=== PATIENT | male | born 1945 | race Caucasian/White ===

== ENCOUNTER → 2016-12-03 | Outpatient (CLI) | payer MEDICARE | LOC: OD 13:23 | PROVIDERS: ATTEND Urology | DX: C61 Malignant neoplasm of prostate (principal) | CPT/HCPCS: 36415; 84153 ==

== ENCOUNTER → 2017-04-28 | Outpatient (CLI) | payer MEDICARE ==
[2017-04-28 09:11] LABS: ABSOLUTE EOSINOPHILS # (AUTO) 0.3 10^3/uL (0.0-0.6); ABSOLUTE LYMPHOCYTES (AUTO) 1.7 10^3/uL (0.5-4.7); ABSOLUTE MONOCYTES (AUTO) 0.8 10^3/uL (0.1-1.4); ABSOLUTE NEUT (AUTO) 5.3 10^3/uL (1.7-8.2); BASOPHILS % (AUTO) 0.6 % (0-2); EOSINOPHILS % (AUTO) 3.3 % (0-6); HEMATOCRIT 39.6 % (37.9-51.0); HEMOGLOBIN 13.6 g/dL (13.5-17.0); HGB HCT DIFFERENCE 1.2; LYMPHOCYTES % (AUTO) 20.9 % (13-45); MEAN CORPUSCULAR HEMOGLOBIN 33.2 pg (27.0-33.4); MEAN CORPUSCULAR HGB CONC 34.3 g/dL (32.0-36.0); MEAN CORPUSCULAR VOLUME 97 fl (80-97); RED BLOOD COUNT 4.09 10^6/uL (4.35-5.55); RED CELL DISTRIBUTION WIDTH 13.3 % (11.5-14.0); SEGMENTED NEUTROPHILS % (AUTO) 65.2 % (42-78); WHITE BLOOD COUNT 8.1 10^3/uL (4.0-10.5)
[2017-04-28 09:46] LABS: ALANINE AMINOTRANSFERASE 29 U/L (21-72); ALBUMIN 3.5 g/dL (3.5-5.0); ALKALINE PHOSPHATASE 103 U/L (38-126); ANION GAP 8 (5-19); ASPARTATE AMINO TRANSFERASE 13 U/L (17-59); BILIRUBIN,DIRECT 0.4 mg/dL (0.0-0.4); BILIRUBIN,TOTAL 0.7 mg/dL (0.2-1.3); BLOOD UREA NITROGEN 15 mg/dL (7-20); CALCIUM 9.7 mg/dL (8.4-10.2); CARBON DIOXIDE 28 mmol/L (22-30); CHLORIDE 105 mmol/L (98-107); CHOLESTEROL 191.25 mg/dL (0-200); Direct HDL 39 mg/dL (>40); GLUCOSE 184 mg/dL (75-110); POTASSIUM 4.8 mmol/L (3.6-5.0); SODIUM 141.4 mmol/L (137-145); TOTAL PROTEIN 6.5 g/dL (6.3-8.2); TRIGLYCERIDES 205 mg/dL (<150)
[2017-04-28 10:00] LABS: DIRECT LDL 125 mg/dL (<100)
[2017-04-28 10:10] LABS: ERYTHROCYTE SEDIMENTATION RATE 21 mm/hr (0-20)
[2017-04-28 10:15] LABS: PROSTATE SPECIFIC ANTIGEN < 0.064 ng/mL (<4.00)
== END ==
LOC: OD 08:11
PROVIDERS: ATTEND Internal Medicine
DX: E11.9 Type 2 diabetes mellitus without complications (principal); C61 Malignant neoplasm of prostate; I25.10 Atherosclerotic heart disease of native coronary artery without angina pectoris; J44.9 Chronic obstructive pulmonary disease, unspecified; E78.5 Hyperlipidemia, unspecified
CPT/HCPCS: 36415; 80053; 80061; 83036; 84153; 84443; 85025; 85652

== ENCOUNTER → 2017-04-30 | Outpatient (CLI) | payer MEDICARE ==
--- NOTE | 2017-04-30 14:49 | RADIOLOGY REPORT (SQ) ---
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 The route of agent administration: Intravenous. ADDITIONAL DRUGS AND DOSES: None. TECHNIQUE: Routine delayed images at 3 hour post radionuclide injection acquired of the bony skeleto n including anterior and posterior whole-body projections and additional focused images as needed. LIMITATIONS: None. FINDINGS: BONES: There is focal increased activity in the cervical region to the right of midline be st seen on the posterior images most consistent with degenerative changes. There is focal activity i n the mid maxillary region which may be related to dental disease. There is increased activity in th e knees bilaterally consistent with degenerative changes. No focal areas increased activity to sugge st metastatic disease is seen. KIDNEYS: Symmetric excretion without obstruction. OTHER: No other significant finding. IMPRESSION: No areas of increased skeletal activity to suggest metastatic disease. Other findings a s noted above COMMENT: PQRS 3570F: Current bone scan is compared with any available plain radiographs, prior bone scans, and CT/MRI. TECHNICAL DOCUMENTATION: JOB ID: [id number] [employer]- All Rights Reserved
== END ==
LOC: RAD 08:27
PROVIDERS: ATTEND Internal Medicine
DX: C61 Malignant neoplasm of prostate (principal)
CPT/HCPCS: 78306; A9561; Q9969

== ENCOUNTER → 2017-11-22 | Outpatient (CLI) | payer MEDICARE ==
[2017-11-22 09:02] LABS: ALANINE AMINOTRANSFERASE 28 U/L (21-72); ALBUMIN 3.7 g/dL (3.5-5.0); ALKALINE PHOSPHATASE 93 U/L (38-126); ANION GAP 8 (5-19); ASPARTATE AMINO TRANSFERASE 16 U/L (17-59); BILIRUBIN,DIRECT 0.5 mg/dL (0.0-0.4); BILIRUBIN,TOTAL 0.8 mg/dL (0.2-1.3); BLOOD UREA NITROGEN 15 mg/dL (7-20); CALCIUM 10.2 mg/dL (8.4-10.2); CARBON DIOXIDE 29 mmol/L (22-30); CHLORIDE 105 mmol/L (98-107); CHOLESTEROL 197.55 mg/dL (0-200); GLUCOSE 184 mg/dL (75-110); POTASSIUM 4.5 mmol/L (3.6-5.0); SODIUM 142.1 mmol/L (137-145); TOTAL PROTEIN 6.4 g/dL (6.3-8.2); TRIGLYCERIDES 236 mg/dL (<150)
[2017-11-22 09:13] LABS: DIRECT LDL 127 mg/dL (<100)
[2017-11-22 09:15] LABS: VLDL CHOLESTEROL 47.2 mg/dL (10-31)
== END ==
LOC: OD 07:49
PROVIDERS: ATTEND Internal Medicine
DX: E78.5 Hyperlipidemia, unspecified (principal); E11.9 Type 2 diabetes mellitus without complications; I10 Essential (primary) hypertension
CPT/HCPCS: 36415; 80053; 80061; 83036

== ENCOUNTER 2019-09-04 03:45 | Inpatient (IN) | payer MEDICARE ==
--- NOTE | 2019-09-04 05:15 | ER Document Report ---
ED General - General Chief Complaint: Fall Stated Complaint: LEG PAIN Time Seen by Provider: 09/04/19 05:01 Primary Care Provider: FIONA WHITE MD [Primary Care Provider] - Follow up as needed Notes: Patient is a 74-year-old male that comes emergency department with chief complaint of a fall that happened last night. At first patient states he thought it was 2 nights ago but on further inquiry thinks it was last night. He states that his right leg simply did not seem to be working and every time he tries to put weight on it it "landon" underneath him. He denies it buckling from pain, he states he feels weak. He also noticed that around the same time his right hand started feeling weak. He states that he kept having to get up to go the bathroom and he could not do so without assistance so he became frustrated and he called EMS. He states in transport his right hand was struck and caused a bruise and skin abrasion. He states he has a history of CAD with stents, hypertension, diabetes, however he states he took himself off of all of his meds and he does not see any primary care provider at this time. He denies smoking, alcohol, recreational drugs. He lives at home alone. His daughter is at bedside. TRAVEL OUTSIDE OF THE [place] IN LAST 30 DAYS: No - Related Data Allergies/Adverse Reactions: No Known Allergies Allergy (Unverified 07/09/11 15:01) Past Medical History - General Information source: Patient - Social History Smoking Status: Never Smoker Frequency of alcohol use: None Drug Abuse: None Lives with: Family Family History: Reviewed & Not Pertinent Patient has suicidal ideation: No Patient has homicidal ideation: No - Past Medical History Cardiac Medical History: Reports: Hx Coronary Artery Disease - STENTS X2 1999, Hx Hypercholesterolemia, Hx Hypertension - medicated Denies: Hx Heart Attack Pulmonary Medical History: Reports: Hx Bronchitis, Hx Pneumonia - WALKING PNEUMONIA Denies: Hx Asthma, Hx COPD Neurological Medical History: Denies: Hx Cerebrovascular Accident, Hx Seizures Endocrine Medical History: Reports: Hx Diabetes Mellitus Type 2 GI Medical History: Denies: Hx Hepatitis, Hx Hiatal Hernia, Hx Ulcer Musculoskeletal Medical History: Denies Hx Arthritis Infectious Medical History: Denies: Hx Hepatitis Past Surgical History: Reports: Hx Open Heart Surgery - STENTS PLACED 1999, Hx Orthopedic Surgery. Denies: Hx Pacemaker - Immunizations Immunizations up to date: No Hx Diphtheria, Pertussis, Tetanus Vaccination: Yes Review of Systems - Review of Systems Constitutional: See HPI EENT: No symptoms reported Cardiovascular: No symptoms reported Respiratory: No symptoms reported Gastrointestinal: No symptoms reported Genitourinary: No symptoms reported Male Genitourinary: No symptoms reported Musculoskeletal: See HPI Skin: No symptoms reported Hematologic/Lymphatic: No symptoms reported Neurological/Psychological: See HPI Physical Exam - Vital signs Vitals: Temp Pulse Resp BP Pulse Ox 99 F 92 14 150/97 H 98 09/04/19 03:53 09/04/19 03:53 09/04/19 03:53 09/04/19 03:53 09/04/19 03:53 - Notes Notes: GENERAL: Alert, interacts well. No acute distress. HEAD: Normocephalic, atraumatic. EYES: Pupils equal, round, and reactive to light. Extraocular movements intact. ENT: Oral mucosa dry, tongue midline. Oropharynx unremarkable. Airway patent. NECK: Full range of motion. Supple. Trachea midline. LUNGS: Clear to auscultation bilaterally, no wheezes, rales, or rhonchi. No respiratory distress. HEART: Regular rate and rhythm. No murmur ABDOMEN: Soft, non-tender. Non-distended. Bowel sounds present in all 4 quadrants. GENITOURINARY: Deferred EXTREMITIES: Moves all 4 extremities spontaneously. No edema, normal radial and dorsalis pedis pulses bilaterally. No cyanosis. BACK: no cervical, thoracic, lumbar midline tenderness. No saddle anesthesia, normal distal neurovascular exam. Moves all extremities in full range of motion. NEUROLOGICAL: Alert and oriented x3. Normal speech. Struggle slightly with right-sided finger-nose testing. Marked weakness in the right leg with patient barely able to lift it off of the bed against gravity. There is also some noted weakness and coordination difficulty with the right arm. Left side is normal. Cranial nerves II through XII intact. PSYCH: Normal affect, normal mood. SKIN: Warm, dry, normal turgor. Small skin abrasion of the right dorsal hand. No rashes or lesions noted. Course - Re-evaluation Re-evalutation: Patient's evaluation is actually concerning for a left MCA stroke. He has marked weakness of the right leg and also has weakness of the right arm. This is very specific. This is been for at least 12 hours, probably more based on patient's reported symptoms. Patient is well outside the window for TPA. Discussed with Dr. Mccann. EKG nonspecific, chemistry shows mild hyperglycemia without acidosis, chest x- ray unremarkable, CT of the head without acute finding. CBC nonspecific. Will discuss with hospitalist because of suspected acute CVA, in addition of this patient lives essentially alone and is unable to ambulate at this time. Discussed with patient and daughter. 09/04/19 07:50 Discussed with Willow Martinez NP, [facility] accepted to the [facility] full admission with Dr. Bales as the attending. - Vital Signs Vital signs: Temp Pulse Resp BP Pulse Ox 99 F 79 18 150/94 H 100 09/04/19 03:53 09/04/19 05:33 09/04/19 05:33 09/04/19 05:33 09/04/19 05:33 - Laboratory Result Diagrams: 09/04/19 05:20 09/04/19 05:20 Laboratory results interpreted by me: 09/04/19 09/04/19 09/04/19 03:51 05:20 05:20 RBC 4.22 L MCH 34.1 H Glucose 181 H POC Glucose 205 H AST 14 L - Diagnostic Test Radiology results interpreted by me: EKG shows sinus rhythm at a rate of 82, QTC 463, normal axis, no T wave inversions or ST segment changes in consecutive leads. Artifact present. Discharge - Discharge Clinical Impression: Right leg weakness, Right arm weakness, Non compliance w medication regimen Condition: Stable Disposition: ADMITTED INPATIENT Admitting Provider: Amairani (Hospitalist) Unit Admitted: [facility] Referrals: FIONA WHITE MD [Primary Care Provider] - Follow up as needed
[2019-09-04 05:32] LABS: ABSOLUTE BASOPHILS # (AUTO) 0.1 10^3/uL (0.0-0.2); ABSOLUTE EOSINOPHILS # (AUTO) 0.1 10^3/uL (0.0-0.6); ABSOLUTE LYMPHOCYTES (AUTO) 1.4 10^3/uL (0.5-4.7); ABSOLUTE NEUT (AUTO) 5.9 10^3/uL (1.7-8.2); BASOPHILS % (AUTO) 0.8 % (0-2); EOSINOPHILS % (AUTO) 0.8 % (0-6); HEMATOCRIT 40.4 % (37.9-51.0); HEMOGLOBIN 14.4 g/dL (13.5-17.0); INTERNATIONAL RATION (INR) 1.04; LYMPHOCYTES % (AUTO) 16.2 % (13-45); MEAN CORPUSCULAR HEMOGLOBIN 34.1 pg (27.0-33.4); MEAN CORPUSCULAR HGB CONC 35.6 g/dL (32.0-36.0); MEAN CORPUSCULAR VOLUME 96 fl (80-97); MONOCYTES % (AUTO) 12.1 % (3-13); PARTIAL THROMBOPLASTIN TIME 26.9 SEC (23.5-35.8); PLATELET COUNT 195 10^3/uL (150-450); PROTHROMBIN TIME 13.7 SEC (11.4-15.4); RED BLOOD COUNT 4.22 10^6/uL (4.35-5.55); RED CELL DISTRIBUTION WIDTH 12.6 % (11.5-14.0); SEGMENTED NEUTROPHILS % (AUTO) 70.1 % (42-78); TOTAL CELLS COUNTED % (AUTO) 100 %; WHITE BLOOD COUNT 8.4 10^3/uL (4.0-10.5)
--- NOTE | 2019-09-04 05:35 | ER Document Report ---
ED Alteplase Inc/Exc Criteria - Date/Time patient last known well: Date/Time: 09-04-2019, 05:30 - Inclusion Criteria: 1: Patient presented to ED within 3 hours of acute ischemic stroke symptom onset? -: No 2: Did baseline CT exclude intracranial hemorrhage and/or other risk factors? -: Yes 3: Is the age of the patient 18 years of age or greater? -: Yes : If any of the above questions are answered "NO" then stop, patient is not a candidate for Alteplase, : If all of the above questions are answered "YES" then continue with Exclusion Criteria. - Exclusion Criteria: 1: Is there evidence of intracranial hemorrhage on baseline CT? 2: Is there suspicion of subarachnoid hemorrhage (even if CT negative)? 3: Is there a history of serious head trauma, recent previous stroke or CA within 3 months? 4: Does the patient have a clinical presentation consistent with CA or post-CA pericarditis? 5: Is there history of intracranial hemorrhage? 6: On repeated measurement is Systolic BP greater than 185mmHg or Diastolic BP greater that 110 mmHg and is aggressive treatment needed to reduce blood pressure to these limits (e.g. constant infusion of an anti-hypertensive)? 7: Did the patient awake with stroke symptoms? 8: Has the patient had a lumbar puncture or an arterial puncture at a non- compressile site within 7 days? 9: With in the last 14 days did the patient have surgery or major trauma? 10: Is the patient or less than 2 weeks? 11: Was there any active bleeding or acute trauma? 12: Does the patient have intracranial neoplasm, arteriovenous malformation or aneurysm? 13: Does the patient have abnormal glucose (less than 50 or greater than 400mg/dl)? Record glucose in Comment. 14: Patient has rapidly improving symptoms at the time Alteplase is to be Administered. 15: Does the patient have any risks for bleeding, including but not limited to: a.: Current use of Coumadin with PT greater than 15 seconds or INR greater than 1.7. b.: Current use of Pradaxa (Dabigatran). c.: Heparin administereed within the past 48 hours and PTT elevated. d.: Platelet count less than 100,000/mm. e.: Major surgery or serious trauma within 14 days. f.: Gastrointestinal or gynecological urinary bleeding within 14 days. g.: Myocardial Infarction (CA) within 3 months. : If the answer to any of the above questions is "YES" then stop, the patient is not a candidate for Alteplase. : If the answer to all of the above questions is "NO" then the patient may be eligible for the Administration of Alteplase. : If the patient is noted to have seizure activity at onset of Stroke symptoms; Consult Neurologist for further evaluation. - The patient is: -: Included and is eligible to receive Alteplase. *Initiate bed placement at higher level of care* Reviewed risks & benefits of thrombolytic therapy: I have reviewed the risks and benefits of thrombolytic therapy with the patient and/or his/her family. -: Excluded and not eligible to receive Alteplase for the above exclusions. -: Excluded and not eligible to receive Alteplase for other reasons (specify in comments): - Diagnosis of TIA: -: Patient presented with transient symptoms that are now resolved and no other neurologic findings are currently present. List symptoms in comments. -: Patient is NOT a candidate for tPA. -: ____(put name in comment) has been consulted for admission and continued evaluation of risk factor assessment. Comment: Outside the window for TPA, did not proceed
--- NOTE | 2019-09-04 05:46 | RADIOLOGY REPORT (SQ) ---
CT head without contrast on 09/04/2019 at 5:25 AM CLINICAL INDICATION: Fall, stroke like symptoms TECHNIQUE: Multiple axial images are obtained throughout the head without the administration of contrast. This exam was performed according to our departmental dose-optimization program, which includes automated exposure control, adjustment of the mA and/or kV according to patient size and/or use of iterative reconstruction technique. Total DLP is 963.96 mGy*cm. COMPARISON: None FINDINGS: There is generalized cerebral atrophy. There is low density in the periventricular white matter consistent with chronic small vessel ischemic changes. There is no hydrocephalus. There is no hemorrhage. There are no abnormal extra-axial fluid collections. There is no mass, mass effect or midline shift. There is no CT evidence of acute infarct. No bony abnormality is noted. IMPRESSION: Atrophy and chronic small vessel ischemic changes with no acute intracranial abnormality.
[2019-09-04 05:48] LABS: ALBUMIN 3.8 g/dL (3.5-5.0); ALKALINE PHOSPHATASE 91 U/L (38-126); ANION GAP 10 (5-19); ASPARTATE AMINO TRANSFERASE 14 U/L (17-59); BILIRUBIN,DIRECT 0.2 mg/dL (0.0-0.4); BILIRUBIN,TOTAL 1.1 mg/dL (0.2-1.3); BLOOD UREA NITROGEN 18 mg/dL (7-20); CALCIUM 9.8 mg/dL (8.4-10.2); CARBON DIOXIDE 25 mmol/L (22-30); CHLORIDE 107 mmol/L (98-107); GLUCOSE 181 mg/dL (75-110); POTASSIUM 4.5 mmol/L (3.6-5.0); TOTAL PROTEIN 6.7 g/dL (6.3-8.2)
--- NOTE | 2019-09-04 05:59 | RADIOLOGY REPORT (SQ) ---
CLINICAL HISTORY: injury, pain COMPARISON: None. TECHNIQUE: XR HAND 3 OR MORE VIEWS 09/04/2019 5:12 AM [employer] REPRESENTATIVE FINDINGS: There is no fracture. There are diffuse degenerative changes of the IP joint. Soft tissues are unremarkable. Bones are osteopenic. IMPRESSION: No acute osseous findings.
--- NOTE | 2019-09-04 06:00 | RADIOLOGY REPORT (SQ) ---
CLINICAL HISTORY: stroke like symptoms COMPARISON: 05/25/2014. TECHNIQUE: XR CHEST 1 VIEW 09/04/2019 5:11 AM SPOUTER FINDINGS: Cardiac silhouette is normal in size. Lungs are clear without consolidation, atelectasis, mass or edema. There is no pleural effusion. There is no pneumothorax. There are no acute osseous findings. IMPRESSION: Clear lungs.
--- NOTE | 2019-09-04 06:42 | EKG REPORT ---
SEVERITY:- ABNORMAL ECG - DIFFUSE NONSPECIFIC ST-T CHANGES SINUS RHYTHM 82 EARLY TRANSITION , CONDISER OLD TRUE POST HI : Confirmed by: Chucky France MD 04-Sep-2019 06:41:29
[2019-09-04] MEDS ORDERED: MAGNESIUM HYDROXIDE SUSP 30 ML UDCUP PO PRN (08:31)
[2019-09-04] MEDS ORDERED: ONDANSETRON HCL INJ/PF 4 MG/2 ML SDV IV PRN (08:31)
[2019-09-04] MEDS ORDERED: TRAMADOL HCL 50 MG TABLET PO PRN (08:31)
[2019-09-04] MEDS ORDERED: ACETAMINOPHEN 325 MG TABLET PO PRN (08:31)
[2019-09-04] MEDS ORDERED: GLUCAGON,HUMAN RECOMB 1 MG INJ IM PRN (08:35)
[2019-09-04] MEDS ORDERED: DEXTROSE 40% GEL 15 GM TUBE PO PRN ×2 (08:35)
[2019-09-04] MEDS ORDERED: DEXTROSE 50%-WATER 25 GM/50 ML DISP.SYRIN IV PRN ×2 (08:35)
--- NOTE | 2019-09-04 11:49 | RADIOLOGY REPORT (SQ) ---
EXAM DESCRIPTION: MRI HEAD WITHOUT COMPLETED DATE/TIME: 09/04/2019 11:37 am REASON FOR STUDY: Right side weakness COMPARISON: CT brain 09/04/2019 TECHNIQUE: Multiplanar imaging includes non-contrasted T1, T2, FLAIR, and diffusion with ADC map seq uences. Images stored on PACS. LIMITATIONS: None. FINDINGS: ANATOMY: No developmental anomalies. Normal vascular flow voids. Pituitary fossa normal. CSF SPACES: Normal in size and contour. No hemorrhage. CEREBRUM: Diffusion-weighted images are positive for a small nonhemorrhagic acute infarct in the left thalamus, best shown on diffusion series 4, image 15/56. This report was called to Willow Martinez, hospitalist Remainder of the study demonstrates moderate small vessel ischemic change in the deep hemispheric bif rontal and biparietal regions, with multiple old lacunar infarcts in the basal ganglia. POSTERIOR FOSSA: No signal alteration. No hemorrhage. No edema, masses or mass effect. Internal deidre tory canals, cerebello-pontine angles, mastoids normal. DIFFUSION IMAGING: Negative for acute or sub-acute infarction. ORBITS: No masses. Globes post cataract surgery. PARANASAL SINUSES: No fluid levels. Mucosa normal. OTHER: No other significant finding. IMPRESSION: Positive study for acute nonhemorrhagic punctate lacunar infarct left thalamus. Chronic small vessel ischemic change elsewhere in the hemispheric white matter. EVIDENCE OF ACUTE STROKE: YES. TECHNICAL DOCUMENTATION: JOB ID: [id number] All Rights Reserved Reading location - IP/workstation name: [email or web address]
[2019-09-04] MEDS: INSULIN LISPRO 100 UNIT/ML 3 ML VIAL SUBCUT SCH ×3 (12:34→22:33)
[2019-09-04] MEDS: HEPARIN SOD (PORCINE) 5,000 UNIT/ML 1 ML VIAL SUBCUT SCH ×2 (13:14→22:33)
[2019-09-04] MEDS: ASPIRIN 81 MG TABLET, ENT COATED PO SCH (13:19)
[2019-09-04] MEDS: FAMOTIDINE 20 MG TABLET PO SCH ×2 (13:19→22:33)
[2019-09-04] MEDS: CLOPIDOGREL BISULFATE 75 MG TABLET PO SCH (13:19)
[2019-09-04] MEDS: DOCUSATE SODIUM 100 MG CAPSULE PO SCH (13:19)
[2019-09-04] MEDS ORDERED: HYDRALAZINE HCL INJ/PF 20 MG/1 ML SDV IV PRN (19:03)
[2019-09-04] MEDS ORDERED: NICOTINE 21 MG/24 HR PATCH.TD24 TD PRN (19:12)
--- NOTE | 2019-09-04 19:17 | PDOC H&P ---
History of Present Illness Admission Date/PCP: 09/04/19 16:25 FIONA WHITE MD Patient complains of: right side weakness History of Present Illness: JANNET HENAO is a 74 year old male Past Medical History Cardiac Medical History: Reports: Coronary Artery Disease - STENTS X2 2000, Hyperlipidema, Hypertension Denies: Myocardial Infarction Pulmonary Medical History: Reports: Bronchitis, Pneumonia Denies: Asthma, Chronic Obstructive Pulmonary Disease (COPD) Neurological Medical History: Denies: Ischemic CVA, Seizures Endocrine Medical History: Reports: Diabetes Mellitus Type 2 GI Medical History: Denies: Hepatitis, Hiatal Hernia Musculoskeltal Medical History: Denies: Arthritis Psychiatric Medical History: Reports: Tobacco Dependency Denies: Depression Hematology: Denies: Anemia, Sickle Cell Disease Past Surgical History Past Surgical History: Reports: Orthopedic Surgery Denies: Pacemaker Social History Information Source: Patient Lives with: Alone Smoking Status: Current Every Day Smoker Cigarettes Packs Per Day: 0.5 Electronic Cigarette use?: No Number of Years Smokin Frequency of Alcohol Use: None Hx Recreational Drug Use: No Drugs: None Hx Prescription Drug Abuse: No - Advance Directive Resuscitation Status: Full Code Surrogate healthcare decision maker:: The patient's daughter, Latasha Vega, Family History Family History: Reviewed & Not Pertinent Parental Family History Reviewed: Yes Children Family History Reviewed: Yes Sibling(s) Family History Reviewed.: Yes Medication/Allergy Home Medications: No Home Medications 09/04/19 Allergies/Adverse Reactions: No Known Allergies Allergy (Unverified 07/09/11 15:01) Review of Systems Constitutional: ABSENT: chills, fever(s), headache(s), weight gain, weight loss Eyes: ABSENT: visual disturbances Ears: ABSENT: hearing changes Cardiovascular: ABSENT: chest pain, dyspnea on exertion, edema, orthropnea, palpitations Respiratory: ABSENT: cough, hemoptysis Gastrointestinal: ABSENT: abdominal pain, constipation, diarrhea, hematemesis, hematochezia, nausea, vomiting Genitourinary: ABSENT: dysuria, hematuria Musculoskeletal: ABSENT: joint swelling Integumentary: ABSENT: rash, wounds Neurological: PRESENT: focal weakness - Rt upper/lower extremities, frequent falls, numbness - right facial, weakness. ABSENT: abnormal gait, abnormal speech, confusion, dizziness, syncope Psychiatric: ABSENT: anxiety, depression, homidical ideation, suicidal ideation Endocrine: ABSENT: cold intolerance, heat intolerance, polydipsia, polyuria Hematologic/Lymphatic: ABSENT: easy bleeding, easy bruising Physical Exam Vital Signs: Temp Pulse Resp BP Pulse Ox 99.1 F 93 17 111/59 L 100 09/04/19 16:02 09/04/19 16:02 09/04/19 16:02 09/04/19 16:02 09/04/19 16:02 Intake & Output 09/03/19 09/04/19 09/05/19 06:59 06:59 06:59 Intake Total 200 Balance 200 Weight 84.8 kg 84.1 kg General appearance: PRESENT: no acute distress, cooperative, disheveled, well- developed, well-nourished Head exam: PRESENT: atraumatic, normocephalic Eye exam: PRESENT: conjunctiva pink, EOMI, PERRLA. ABSENT: scleral icterus Ear exam: PRESENT: normal external ear exam Mouth exam: PRESENT: moist, tongue midline Teeth exam: PRESENT: poor dentation Neck exam: ABSENT: carotid bruit, JVD, lymphadenopathy, thyromegaly Respiratory exam: PRESENT: clear to auscultation chivo, symmetrical, unlabored. ABSENT: rales, rhonchi, wheezes Cardiovascular exam: PRESENT: RRR, +S1, +S2. ABSENT: diastolic murmur, rubs, systolic murmur Pulses: PRESENT: normal dorsalis pedis pul Vascular exam: PRESENT: normal capillary refill GI/Abdominal exam: PRESENT: normal bowel sounds, soft. ABSENT: distended, guarding, mass, organolmegaly, rebound, tenderness Rectal exam: PRESENT: deferred Extremities exam: PRESENT: full ROM. ABSENT: calf tenderness, clubbing, pedal edema Neurological exam: PRESENT: alert, awake, oriented to person, oriented to place, oriented to time, oriented to situation, CN II-XII grossly intact, other - Rt facial numbness; right bottle feeder 4/5, left 5/5, right dorsi/plantarflexion 3/5, left 5/5. Right leg lift 2/5, left leg lift 4/5. ABSENT: motor sensory deficit Psychiatric exam: PRESENT: appropriate affect, normal mood. ABSENT: homicidal ideation, suicidal ideation Skin exam: PRESENT: dry, intact, warm. ABSENT: cyanosis, rash Results Laboratory Results: 09/04/19 05:20 09/04/19 05:20 09/04/19 09/04/19 05:20 05:20 WBC 8.4 RBC 4.22 L Hgb 14.4 Hct 40.4 MCV 96 MCH 34.1 H MCHC 35.6 RDW 12.6 Plt Count 195 Seg Neutrophils % 70.1 Sodium 141.9 Potassium 4.5 Chloride 107 Carbon Dioxide 25 Anion Gap 10 BUN 18 Creatinine 0.80 Est GFR ( Amer) > 60 Glucose 181 H Calcium 9.8 Total Bilirubin 1.1 AST 14 L Alkaline Phosphatase 91 Total Protein 6.7 Albumin 3.8 09/04/19 05:20 Troponin I < 0.012 Impressions: Head MRI 09/04/19 00:00 IMPRESSION: Positive study for acute nonhemorrhagic punctate lacunar infarct le ft thalamus. Chronic small vessel ischemic change elsewhere in the hemispheric white matter. EVIDENCE OF ACUTE STROKE: YES. Chest X-Ray 09/04/19 05:11 IMPRESSION: Clear lungs. Head CT 09/04/19 05:11 IMPRESSION: Atrophy and chronic small vessel ischemic changes with no acute intracranial abnormality. Hand X-Ray 09/04/19 05:12 IMPRESSION: No acute osseous findings. Assessment and Plan - Diagnosis (1) CVA (cerebral vascular accident) Qualifiers: Laterality of affected vessel: right Is this a current diagnosis for this admission?: Yes Plan: Right-sided weakness and facial numbness noted on waking this morning. Patient reports increased frequency of falls today; 4 falls this morning. Typically falls 1-2 times a week. Last known well greater than [address] benign. Head MRI shows acute nonhemorrhagic punctate lacunar infarct of the left thal amus with chronic small vessel ischemic changes. EKG shows normal sinus Patient has been admitted to [facility] on continuous cardiac telemetry. We will obtain carotid Dopplers. Consider echocardiogram if patient is noted to have any arrhythmias. He has not been on aspirin therapy recently; stopped all home medication several years ago. Start aspirin. Start Plavix x21 days for stroke reduction risk. Start high-dose statin. Lipid panel and A1c with a.m. lab work. PT/OT/ST consulted. Discharge planning consulted. (2) Diabetes Qualifiers: Diabetes mellitus type: type 2 Diabetes mellitus complication status: with hyperglycemia Is this a current diagnosis for this admission?: Yes Plan: Patient has been off of his home medications for several years. We will check A1c with a.m. lab work. He is placed on a consistent carb/cardiac diet. Accu-Cheks before meals and at bedtime with Humalog for sliding scale coverage. Hyperglycemia protocol placed. (3) Tobacco dependence Is this a current diagnosis for this admission?: Yes Plan: Smoking cessation encouraged. Nicotine or placement therapies provided. (4) Non compliance w medication regimen Is this a current diagnosis for this admission?: Yes Plan: Education and reinforcement of lifestyle and dietary modifications, and medication compliance. Discharge planning is consulted; patient will benefit from home health nursing for disease and medication education and management. - Time Time Spent with patient: 25-34 minutes Medications reviewed and adjusted accordingly: Yes Anticipated discharge: Home with Homehealth Within: within 48 hours - Inpatient Certification Based on my medical assessment, after consideration of the patient's comorbi dities, presenting symptoms, or acuity I expect that the services needed warrant INPATIENT care.: Yes I certify that my determination is in accordance with my understanding of Medicare's requirements for reasonable and necessary INPATIENT services [42 CFR 412.3e].: Yes Medical Necessity: Need Close Monitoring Due to Risk of Patient Decompensation, Need For Continuous Telemetry Monitoring, Risk of Diagnosis Which Will Require Inpatient Eval/Care/Monitoring
[2019-09-04] MEDS: ATORVASTATIN CALCIUM 80 MG TABLET PO SCH (22:33)
[2019-09-05 05:16] LABS: BLOOD UREA NITROGEN 17 mg/dL (7-20); CALCIUM 9.3 mg/dL (8.4-10.2); GLUCOSE 122 mg/dL (75-110)
[2019-09-05 05:17] LABS: ANION GAP 7 (5-19); CARBON DIOXIDE 27 mmol/L (22-30); CHLORIDE 105 mmol/L (98-107); CHOLESTEROL 183.37 mg/dL (0-200); POTASSIUM 4.1 mmol/L (3.6-5.0); TRIGLYCERIDES 173 mg/dL (<150)
[2019-09-05 05:27] LABS: DIRECT LDL 131 mg/dL (<100)
[2019-09-05 05:30] LABS: VLDL CHOLESTEROL 34.6 mg/dL (10-31)
[2019-09-05] MEDS: HEPARIN SOD (PORCINE) 5,000 UNIT/ML 1 ML VIAL SUBCUT SCH ×3 (05:50→22:23)
[2019-09-05] MEDS: INSULIN LISPRO 100 UNIT/ML 3 ML VIAL SUBCUT SCH ×4 (07:27→22:44)
[2019-09-05] MEDS: CLOPIDOGREL BISULFATE 75 MG TABLET PO SCH (09:18)
[2019-09-05] MEDS: ASPIRIN 81 MG TABLET, ENT COATED PO SCH (09:18)
[2019-09-05] MEDS: DOCUSATE SODIUM 100 MG CAPSULE PO SCH (09:19)
[2019-09-05] MEDS: FAMOTIDINE 20 MG TABLET PO SCH ×2 (09:19→22:23)
--- NOTE | 2019-09-05 09:28 | RADIOLOGY REPORT (SQ) ---
EXAM DESCRIPTION: CAROTID DOPPLER COMPLETED DATE/TIME: 09/04/2019 6:58 pm REASON FOR STUDY: CVA COMPARISON: 09/04/2019 TECHNIQUE: Grayscale ultrasound, Doppler velocity and spectra, and color Doppler images acquired of the extra-cranial carotid and vertebral arteries. Images stored on PACS. LIMITATIONS: None. FINDINGS: RIGHT CAROTID CCA Velocities: Normal waveform. . Grayscale evaluation demonstrates eccentric distal plaque with l ess than 50% luminal stenosis. ICA Velocities Peak systolic 203 cm/s. End diastolic 42 cm/s. Proximal ICA/CCA peak systolic ratio 2.8. Elevated turbulent velocities at the proximal ICA. There is eccentric hyperechoic shadowing calcifie d plaque and hypoechoic plaque at the proximal ICA on grayscale evaluation with at least 50% luminal narrowing. Elevated velocity within the right ECA of 196 cm/s. LEFT CAROTID CCA Velocities: Normal waveform. Grayscale evaluation with scatter mild eccentric distal plaque with less than 50% luminal stenosis. ICA Velocities Peak systolic 69 cm/s. End diastolic 19 cm/s. Proximal ICA/CCA peak systolic ratio 0.8. Normal spectral waveform. Scattered eccentric plaque with less than 50% luminal stenosis by grayscal e evaluation. VERTEBRAL ARTERIES: Antegrade flow. Normal waveforms. SUBCLAVIAN ARTERIES: Not imaged. OTHER: No other significant finding. IMPRESSION: 1. Right ICA with elevated velocities compatible with 50 - 69% stenosis. 2. No hemodynamically significant stenosis within the left ICA. COMMENT: Quality ID #[id number]: Velocity criteria are extrapolated from the diameter data as defined by t he Society of Radiologists in Ultrasound Consensus Conference. Radiology 2003: 229; 340-346. TECHNICAL DOCUMENTATION: JOB ID: [id number] All Rights Reserved Reading location - IP/workstation name: [facility]-
--- NOTE | 2019-09-05 18:24 | PDOC PROGRESS REPORT ---
Subjective Progress Note for:: 09/05/19 Subjective:: The patient is a 74-year-old male with a past medical history of hypertension, diabetes mellitus, hyperlipidemia, and tobacco dependence. He reports that he discontinued taking his home medications several years ago but has not seen a healthcare provider since. He was admitted 09/04/2019 for right-sided weakness suspicious for CVA. Patient was seen on afternoon rounds with his daughters present. He was found resting in bed comfortably on room air. He is alert and oriented to person, place, situation; though forgetful and repetitive of statements and questions. He does continue to have slight right-sided weakness, however, this is significantly improved from yesterday. He has not yet worked with physical therapy today. He denies fever, chills, headache, dizziness, blurred vision, chest pain, palpitations, dyspnea, orthopnea, abdominal pain, nausea vomiting and diarrhea. Have no new questions or concerns. No questions per nursing at this time. Reason For Visit: CVA Physical Exam Vital Signs: Temp Pulse Resp BP Pulse Ox 98.2 F 78 16 93/50 L 98 09/05/19 15:15 09/05/19 16:00 09/05/19 16:00 09/05/19 16:00 09/05/19 16:00 Intake & Output 09/04/19 09/05/19 09/06/19 06:59 06:59 06:59 Intake Total 350 340 Balance 350 340 Weight 84.8 kg 82.9 kg General appearance: PRESENT: no acute distress, cooperative, well-developed, well-nourished Head exam: PRESENT: atraumatic, normocephalic Eye exam: PRESENT: conjunctiva pink, EOMI, PERRLA. ABSENT: scleral icterus Ear exam: PRESENT: normal external ear exam Mouth exam: PRESENT: moist, tongue midline Respiratory exam: PRESENT: clear to auscultation chivo, symmetrical, unlabored. ABSENT: rales, rhonchi, wheezes Cardiovascular exam: PRESENT: RRR, +S1, +S2. ABSENT: diastolic murmur, rubs, systolic murmur Pulses: PRESENT: normal dorsalis pedis pul Vascular exam: PRESENT: normal capillary refill GI/Abdominal exam: PRESENT: normal bowel sounds, soft. ABSENT: distended, guarding, mass, organolmegaly, rebound, tenderness Rectal exam: PRESENT: deferred Extremities exam: PRESENT: full ROM, other - Rt facial numbness; right regional loss prevention manager 5/5, left 5/5, right dorsi/plantarflexion 5/5, left 5/5. Right leg lift 3/5, left leg lift 4/5.. ABSENT: calf tenderness, clubbing, pedal edema Neurological exam: PRESENT: alert, awake, oriented to person, oriented to place, oriented to situation, CN II-XII grossly intact, other - Forgetful and repetitive. ABSENT: motor sensory deficit Psychiatric exam: PRESENT: appropriate affect, normal mood. ABSENT: homicidal ideation, suicidal ideation Skin exam: PRESENT: dry, intact, warm. ABSENT: cyanosis, rash Results Laboratory Results: 09/04/19 05:20 09/05/19 04:33 09/05/19 04:33 Sodium 139.2 Potassium 4.1 Chloride 105 Carbon Dioxide 27 Anion Gap 7 BUN 17 Creatinine 0.81 Est GFR ( Amer) > 60 Glucose 122 H Calcium 9.3 Triglycerides 173 H Cholesterol 183.37 LDL Cholesterol Direct 131 H VLDL Cholesterol 34.6 H HDL Cholesterol 32 L 09/04/19 05:20 Troponin I < 0.012 Impressions: Head MRI 09/04/19 00:00 IMPRESSION: Positive study for acute nonhemorrhagic punctate lacunar infarct left thalamus. Chronic small vessel ischemic change elsewhere in the hemispheric white matter. EVIDENCE OF ACUTE STROKE: YES. Chest X-Ray 09/04/19 05:11 IMPRESSION: Clear lungs. Head CT 09/04/19 05:11 IMPRESSION: Atrophy and chronic small vessel ischemic changes with no acute intracranial abnormality. Hand X-Ray 09/04/19 05:12 IMPRESSION: No acute osseous findings. Carotid Doppler Study 09/04/19 08:34 IMPRESSION: 1. Right ICA with elevated velocities compatible with 50 - 69% stenosis. 2. No hemodynamically significant stenosis within the left ICA. Assessment and Plan - Diagnosis (1) CVA (cerebral vascular accident) Qualifiers: Laterality of affected vessel: right Is this a current diagnosis for this admission?: Yes Plan: Right-sided weakness and facial numbness noted on waking this morning. Patient reports increased frequency of falls today; 4 falls this morning. Typically falls 1-2 times a week. Last known well greater than [address] benign. Head MRI shows acute nonhemorrhagic punctate lacunar infarct of the left thalamus with chronic small vessel ischemic changes. EKG shows normal sinus Carotid Doppler is negative for hemodynamically significant stenosis; does show a less than 69% stenosis of the right ICA A1c of 7.9% Lipid panel shows HDL 32, LDL 131, triglycerides 173, total cholesterol 183 Patient has been admitted to [facility] on continuous cardiac telemetry. Consider echocardiogram if patient is noted to have any arrhythmias. He has not been on aspirin therapy recently; stopped all home medication several years ago. Continue aspirin. Continue Plavix x21 days for stroke reduction risk. Continue high-dose statin. PT/OT/ST consulted. Discharge planning consulted. (2) Diabetes Qualifiers: Diabetes mellitus type: type 2 Diabetes mellitus complication status: with hyperglycemia Is this a current diagnosis for this admission?: Yes Plan: A1c of 7.9% Patient has been off of his home medications for several years. He is placed on a consistent carb/cardiac diet. Accu-Cheks before meals and at bedtime with Humalog for sliding scale coverage. Hyperglycemia protocol placed. Appropriate to be discharged on twice daily metformin. (3) Tobacco dependence Is this a current diagnosis for this admission?: Yes Plan: Smoking cessation encouraged. Nicotine or placement therapies provided. (4) Non compliance w medication regimen Is this a current diagnosis for this admission?: Yes Plan: Education and reinforcement of lifestyle and dietary modifications, and medication compliance. Discharge planning is consulted; patient will benefit from home health nursing for disease and medication education and management. (5) Hyperlipidemia Is this a current diagnosis for this admission?: Yes Plan: HDL 32, LDL 131, triglycerides 173, cholesterol 183 Consistent carb/cardiac diet. Currently on high-dose statin; should continue statin therapy daily on discharge. - Time Time Spent with patient: 25-34 minutes Medications reviewed and adjusted accordingly: Yes Anticipated discharge: SNF Within: when bed available
[2019-09-05] MEDS: ATORVASTATIN CALCIUM 80 MG TABLET PO SCH (22:23)
[2019-09-06] MEDS: HEPARIN SOD (PORCINE) 5,000 UNIT/ML 1 ML VIAL SUBCUT SCH ×3 (06:01→23:22)
--- NOTE | 2019-09-06 10:19 | PDOC PROGRESS REPORT ---
Subjective Progress Note for:: 09/06/19 Subjective:: The patient is a 74-year-old male with a past medical history of hypertension, diabetes mellitus, hyperlipidemia, and tobacco dependence. He reports that he discontinued taking his home medications several years ago but has not seen a healthcare provider since. He was admitted 09/04/2019 for right-sided weakness suspicious for CVA. 09/06/2019. No acute events overnight. Patient is complaining of right lower extremity weakness, stating that he would like to be placed in a short-term rehab as he thinks he may not be able to take care of himself at home. Denies any new neurological symptoms, denies any fever, chills, nausea, vomiting, diarrhea, constipation or any urinary symptoms. Patient is pending transfer to SNF. Reason For Visit: CVA Physical Exam Vital Signs: Temp Pulse Resp BP Pulse Ox 98.6 F 83 18 124/70 99 09/06/19 03:04 09/06/19 07:00 09/06/19 03:04 09/06/19 03:04 09/06/19 03:04 Intake & Output 09/05/19 09/06/19 09/07/19 06:59 06:59 06:59 Intake Total 350 490 Balance 350 490 Weight 82.9 kg 82.7 kg General appearance: PRESENT: no acute distress, well-developed, well-nourished Respiratory exam: PRESENT: clear to auscultation chivo. ABSENT: rales, rhonchi, wheezes Cardiovascular exam: PRESENT: RRR. ABSENT: diastolic murmur, rubs, systolic murmur Neurological exam: PRESENT: alert, awake, oriented to person, oriented to place, oriented to time, oriented to situation, CN II-XII grossly intact, motor sensory deficit - Right lower extremity strength 2/5. Results Laboratory Results: 09/04/19 05:20 09/05/19 04:33 09/04/19 05:20 Troponin I < 0.012 Impressions: Head MRI 09/04/19 00:00 IMPRESSION: Positive study for acute nonhemorrhagic punctate lacunar infarct left thalamus. Chronic small vessel ischemic change elsewhere in the hemispheric white matter. EVIDENCE OF ACUTE STROKE: YES. Chest X-Ray 09/04/19 05:11 IMPRESSION: Clear lungs. Head CT 11/25/19 05:11 IMPRESSION: Atrophy and chronic small vessel ischemic changes with no acute intracranial abnormality. Hand X-Ray 09/04/19 05:12 IMPRESSION: No acute osseous findings. Carotid Doppler Study 09/04/19 08:34 IMPRESSION: 1. Right ICA with elevated velocities compatible with 50 - 69% stenosis. 2. No hemodynamically significant stenosis within the left ICA. Assessment and Plan - Diagnosis (1) CVA (cerebral vascular accident) Qualifiers: Laterality of affected vessel: right Is this a current diagnosis for this admission?: Yes Plan: Right upper and lower extremity worse on the right side. Still not able to ambulate without assistance. Denies any new focal neurological symptoms. Last known well greater than 12 hours ago prior to admission. Head CT benign. Head MRI shows acute nonhemorrhagic punctate lacunar infarct of the left thalamus with chronic small vessel ischemic changes. EKG shows normal sinus Carotid Doppler is negative for hemodynamically significant stenosis; does show a less than 69% stenosis of the right ICA A1c of 7.9% Lipid panel shows HDL 32, LDL 131, triglycerides 173, total cholesterol 183 Will consider echocardiogram if patient is noted to have any arrhythmias. He has not been on aspirin therapy recently; stopped all home medication several years ago. Continue aspirin. Continue Plavix x21 days for stroke reduction risk. Continue high intensity statin. Continue PT/OT/ST. Pending transfer to SNF. (2) Diabetes Qualifiers: Diabetes mellitus type: type 2 Diabetes mellitus complication status: with hyperglycemia Is this a current diagnosis for this admission?: Yes Plan: A1c of 7.9% Patient has been off of his home medications for several years. He is placed on a consistent carb/cardiac diet. Accu-Cheks before meals and at bedtime with Humalog for sliding scale coverage. Hyperglycemia protocol placed. Appropriate to be discharged on twice daily metformin. (3) Hyperlipidemia Is this a current diagnosis for this admission?: Yes Plan: HDL 32, LDL 131, triglycerides 173, cholesterol 183 Consistent carb/cardiac diet. Continue high intensity statin. Follow-up with PCP for evaluation of liver chemistries. (4) Non compliance w medication regimen Is this a current diagnosis for this admission?: Yes Plan: Education and reinforcement of lifestyle and dietary modifications, and m edication compliance. Discharge planning is consulted; patient will benefit from home health nursing for disease and medication education and management. (5) Tobacco dependence Is this a current diagnosis for this admission?: Yes Plan: Smoking cessation encouraged. Nicotine or placement therapies provided.
[2019-09-06] MEDS: INSULIN LISPRO 100 UNIT/ML 3 ML VIAL SUBCUT SCH ×4 (10:28→23:00)
[2019-09-06] MEDS: ASPIRIN 81 MG TABLET, ENT COATED PO SCH (10:29)
[2019-09-06] MEDS: CLOPIDOGREL BISULFATE 75 MG TABLET PO SCH (10:29)
[2019-09-06] MEDS: DOCUSATE SODIUM 100 MG CAPSULE PO SCH (10:34)
[2019-09-06] MEDS: FAMOTIDINE 20 MG TABLET PO SCH ×2 (10:34→23:21)
[2019-09-06] MEDS: ATORVASTATIN CALCIUM 80 MG TABLET PO SCH (23:21)
[2019-09-07] MEDS: HEPARIN SOD (PORCINE) 5,000 UNIT/ML 1 ML VIAL SUBCUT SCH ×3 (06:08→22:34)
[2019-09-07] MEDS: INSULIN LISPRO 100 UNIT/ML 3 ML VIAL SUBCUT SCH ×3 (10:31→22:35)
[2019-09-07] MEDS: FAMOTIDINE 20 MG TABLET PO SCH ×2 (10:33→22:32)
[2019-09-07] MEDS: CLOPIDOGREL BISULFATE 75 MG TABLET PO SCH (10:33)
[2019-09-07] MEDS: DOCUSATE SODIUM 100 MG CAPSULE PO SCH (10:33)
[2019-09-07] MEDS: ASPIRIN 81 MG TABLET, ENT COATED PO SCH (10:33)
--- NOTE | 2019-09-07 11:53 | PDOC PROGRESS REPORT ---
Subjective Progress Note for:: 09/07/19 Subjective:: The patient is a 74-year-old male with a past medical history of hypertension, diabetes mellitus, hyperlipidemia, and tobacco dependence. He reports that he discontinued taking his home medications several years ago but has not seen a healthcare provider since. He was admitted 09/04/2019 for right-sided weakness suspicious for CVA. 09/06/2019. No acute events overnight. Patient is complaining of right lower extremity weakness, stating that he would like to be placed in a short-term rehab as he thinks he may not be able to take care of himself at home. Denies any new neurological symptoms, denies any fever, chills, nausea, vomiting, diarrhea, constipation or any urinary symptoms. Patient is pending transfer to SNF. 09/07/2019. No acute events overnight. Right lower extremity strength improving mildly, denies any fever, chills, nausea, vomiting, diarrhea, constipation or any urinary symptoms. Patient is pending placement. Reason For Visit: CVA Physical Exam Vital Signs: Temp Pulse Resp BP Pulse Ox 98.0 F 88 18 123/75 99 09/07/19 07:28 09/07/19 07:28 09/07/19 07:28 09/07/19 07:28 09/07/19 07:28 Intake & Output 09/06/19 09/07/19 09/08/19 06:59 06:59 06:59 Intake Total 490 800 Output Total 850 Balance 490 -50 Weight 82.7 kg 81.5 kg General appearance: PRESENT: no acute distress, well-developed, well-nourished Respiratory exam: PRESENT: clear to auscultation chivo. ABSENT: rales, rhonchi, wheezes Cardiovascular exam: PRESENT: RRR. ABSENT: diastolic murmur, rubs, systolic murmur GI/Abdominal exam: PRESENT: normal bowel sounds, soft. ABSENT: distended, guarding, mass, organolmegaly, rebound, tenderness Neurological exam: PRESENT: alert, awake, oriented to person, oriented to place, oriented to time, oriented to situation, CN II-XII grossly intact, motor sensory deficit - RLE strength 2/5 Results Laboratory Results: 09/04/19 05:20 09/05/19 04:33 09/04/19 05:20 Troponin I < 0.012 Impressions: Head MRI 09/04/19 00:00 IMPRESSION: Positive study for acute nonhemorrhagic punctate lacunar infarct left thalamus. Chronic small vessel ischemic change elsewhere in the hemispheric white matter. EVIDENCE OF ACUTE STROKE: YES. Chest X-Ray 09/04/19 05:11 IMPRESSION: Clear lungs. Head CT 09/04/19 05:11 IMPRESSION: Atrophy and chronic small vessel ischemic changes with no acute intracranial abnormality. Hand X-Ray 09/04/19 05:12 IMPRESSION: No acute osseous findings. Carotid Doppler Study 09/04/19 08:34 IMPRESSION: 1. Right ICA with elevated velocities compatible with 50 - 69% stenosis. 2. No hemodynamically significant stenosis within the left ICA. Assessment and Plan - Diagnosis (1) CVA (cerebral vascular accident) Qualifiers: Laterality of affected vessel: right Is this a current diagnosis for this admission?: Yes Plan: Right upper and lower extremity worse on the right side. Still not able to ambulate without assistance. Denies any new focal neurological symptoms. Last known well greater than 12 hours ago prior to admission. Head CT benign. Head MRI shows acute nonhemorrhagic punctate lacunar infarct of the left thalamus with chronic small vessel ischemic changes. EKG shows normal sinus Carotid Doppler is negative for hemodynamically significant stenosis; does show a less than 69% stenosis of the right ICA A1c of 7.9% Lipid panel shows HDL 32, LDL 131, triglycerides 173, total cholesterol 183 Will consider echocardiogram if patient is noted to have any arrhythmias. He has not been on aspirin therapy recently; stopped all home medication several years ago. Continue aspirin. Continue Plavix x21 days for stroke reduction risk. Continue high intensity statin. Continue PT/OT/ST. Pending transfer to SNF. (2) Diabetes Qualifiers: Diabetes mellitus type: type 2 Diabetes mellitus complication status: with hyperglycemia Is this a current diagnosis for this admission?: Yes Plan: A1c of 7.9% Patient has been off of his home medications for several years. He is placed on a consistent carb/cardiac diet. Accu-Cheks before meals and at bedtime with Humalog for sliding scale coverage. Hyperglycemia protocol placed. Appropriate to be discharged on twice daily metformin. (3) Hyperlipidemia Is this a current diagnosis for this admission?: Yes Plan: HDL 32, LDL 131, triglycerides 173, cholesterol 183 Consistent carb/cardiac diet. Continue high intensity statin. Follow-up with PCP for evaluation of liver chemistries. (4) Non compliance w medication regimen Is this a current diagnosis for this admission?: Yes Plan: Education and reinforcement of lifestyle and dietary modifications, and medication compliance. Discharge planning is consulted; patient will benefit from home health nursing for disease and medication education and management. (5) Tobacco dependence Is this a current diagnosis for this admission?: Yes Plan: Smoking cessation encouraged. Nicotine or placement therapies provided.
[2019-09-07] MEDS ORDERED: DEXTROSE 40% GEL 15 GM TUBE PO PRN ×2 (11:55)
[2019-09-07] MEDS ORDERED: DEXTROSE 50%-WATER 25 GM/50 ML DISP.SYRIN IV PRN ×2 (11:55)
[2019-09-07] MEDS ORDERED: GLUCAGON,HUMAN RECOMB 1 MG INJ IM PRN (11:55)
[2019-09-07] MEDS: ATORVASTATIN CALCIUM 80 MG TABLET PO SCH (22:32)
[2019-09-08] MEDS: HEPARIN SOD (PORCINE) 5,000 UNIT/ML 1 ML VIAL SUBCUT SCH ×3 (05:58→22:51)
[2019-09-08] MEDS ORDERED: POLYETHYLENE GLYCOL 3350 POWDER 17 GM/1 PACKET PO ONE (10:05)
--- NOTE | 2019-09-08 10:07 | PDOC PROGRESS REPORT ---
Subjective Progress Note for:: 09/08/19 Subjective:: The patient is a 74-year-old male with a past medical history of hypertension, diabetes mellitus, hyperlipidemia, and tobacco dependence. He reports that he discontinued taking his home medications several years ago but has not seen a healthcare provider since. He was admitted 09/04/2019 for right-sided weakness suspicious for CVA. 09/06/2019. No acute events overnight. Patient is complaining of right lower extremity weakness, stating that he would like to be placed in a short-term rehab as he thinks he may not be able to take care of himself at home. Denies any new neurological symptoms, denies any fever, chills, nausea, vomiting, diarrhea, constipation or any urinary symptoms. Patient is pending transfer to SNF. 09/07/2019. No acute events overnight. Right lower extremity strength improving mildly, denies any fever, chills, nausea, vomiting, diarrhea, constipation or any urinary symptoms. Patient is pending placement. 09/08/2019. No acute events overnight. Still complaining of right lower extremity weakness and inability to ambulate much denies any new neurological symptoms. Complaining of, constipation. Denies any fever, chills, nausea, vomiting, diarrhea or any urinary symptoms. Patient is pending placement to rehab. Reason For Visit: CVA Physical Exam Vital Signs: Temp Pulse Resp BP Pulse Ox 99.0 F 103 H 21 H 133/76 H 100 09/08/19 03:49 09/08/19 07:00 09/08/19 03:49 09/08/19 03:49 09/08/19 03:49 Intake & Output 09/07/19 09/08/19 09/09/19 06:59 06:59 06:59 Intake Total 800 840 Output Total 850 Balance -50 840 Weight 81.5 kg 80.4 kg General appearance: PRESENT: no acute distress, well-developed, well-nourished Head exam: PRESENT: atraumatic, normocephalic Respiratory exam: PRESENT: clear to auscultation chivo. ABSENT: rales, rhonchi, wheezes Cardiovascular exam: PRESENT: RRR. ABSENT: diastolic murmur, rubs, systolic murmur GI/Abdominal exam: PRESENT: normal bowel sounds, soft. ABSENT: distended, guarding, mass, organolmegaly, rebound, tenderness Neurological exam: PRESENT: alert, awake, oriented to person, oriented to place, oriented to time, oriented to situation, CN II-XII grossly intact, motor sensory deficit - RLE 2/5 Results Laboratory Results: 09/04/19 05:20 09/05/19 04:33 09/04/19 05:20 Troponin I < 0.012 Impressions: Head MRI 09/04/19 00:00 IMPRESSION: Positive study for acute nonhemorrhagic punctate lacunar infarct left thalamus. Chronic small vessel ischemic change elsewhere in the hemispheric white matter. EVIDENCE OF ACUTE STROKE: YES. Chest X-Ray 09/04/19 05:11 IMPRESSION: Clear lungs. Head CT 09/04/19 05:11 IMPRESSION: Atrophy and chronic small vessel ischemic changes with no acute intracranial abnormality. Hand X-Ray 09/04/19 05:12 IMPRESSION: No acute osseous findings. Carotid Doppler Study 09/04/19 08:34 IMPRESSION: 1. Right ICA with elevated velocities compatible with 50 - 69% stenosis. 2. No hemodynamically significant stenosis within the left ICA. Assessment and Plan - Diagnosis (1) CVA (cerebral vascular accident) Qualifiers: Laterality of affected vessel: right Is this a current diagnosis for this admission?: Yes Plan: Right upper and lower extremity worse on the right side. Still not able to ambulate without assistance. Denies any new focal neurological symptoms. Last known well greater than 12 hours ago prior to admission. Head CT benign. Head MRI shows acute nonhemorrhagic punctate lacunar infarct of the left thalamus with chronic small vessel ischemic changes. EKG shows normal sinus Carotid Doppler is negative for hemodynamically significant stenosis; does show a less than 69% stenosis of the right ICA A1c of 7.9% Lipid panel shows HDL 32, LDL 131, triglycerides 173, total cholesterol 183 Will consider echocardiogram if patient is noted to have any arrhythmias. He has not been on aspirin therapy recently; stopped all home medication several years ago. Continue aspirin. Continue Plavix x21 days for stroke reduction risk. Continue high intensity statin. Continue PT/OT/ST. Pending transfer to SNF. (2) Diabetes Qualifiers: Diabetes mellitus type: type 2 Diabetes mellitus complication status: with hyperglycemia Is this a current diagnosis for this admission?: Yes Plan: A1c of 7.9% Patient has been off of his home medications for several years. He is placed on a consistent carb/cardiac diet. Accu-Cheks before meals and at bedtime with Humalog for sliding scale coverage. Hyperglycemia protocol placed. Appropriate to be discharged on twice daily metformin. (3) Hyperlipidemia Is this a current diagnosis for this admission?: Yes Plan: HDL 32, LDL 131, triglycerides 173, cholesterol 183 Consistent carb/cardiac diet. Continue high intensity statin. Follow-up with PCP for evaluation of liver chemistries. (4) Non compliance w medication regimen Is this a current diagnosis for this admission?: Yes Plan: Education and reinforcement of lifestyle and dietary modifications, and medication compliance. Discharge planning is consulted; patient will benefit from home health nursing for disease and medication education and management. (5) Tobacco dependence Is this a current diagnosis for this admission?: Yes Plan: Smoking cessation encouraged. Nicotine or placement therapies provided. (6) Constipation Qualifiers: Constipation type: drug induced constipation Qualified Code(s): K59.03 - Drug induced constipation Is this a current diagnosis for this admission?: Yes Plan: Likely drug induced by tramadol. Started on bowel regimen. Denies any abdominal pain. Passing flatus.
[2019-09-08] MEDS: FAMOTIDINE 20 MG TABLET PO SCH ×2 (10:52→22:50)
[2019-09-08] MEDS: CLOPIDOGREL BISULFATE 75 MG TABLET PO SCH (10:52)
[2019-09-08] MEDS: ASPIRIN 81 MG TABLET, ENT COATED PO SCH (10:52)
[2019-09-08] MEDS: INSULIN LISPRO 100 UNIT/ML 3 ML VIAL SUBCUT SCH ×3 (10:53→22:42)
[2019-09-08] MEDS: DOCUSATE SODIUM 100 MG CAPSULE PO SCH (19:07)
[2019-09-08] MEDS: ATORVASTATIN CALCIUM 80 MG TABLET PO SCH (22:50)
[2019-09-09] MEDS: DOCUSATE SODIUM 100 MG CAPSULE PO SCH ×3 (03:51→17:27)
[2019-09-09] MEDS: HEPARIN SOD (PORCINE) 5,000 UNIT/ML 1 ML VIAL SUBCUT SCH ×3 (05:28→22:42)
[2019-09-09] MEDS: INSULIN LISPRO 100 UNIT/ML 3 ML VIAL SUBCUT SCH ×4 (08:55→22:41)
--- NOTE | 2019-09-09 10:06 | PDOC PROGRESS REPORT ---
Subjective Progress Note for:: 09/09/19 Subjective:: The patient is a 74-year-old male with a past medical history of hypertension, diabetes mellitus, hyperlipidemia, and tobacco dependence. He reports that he discontinued taking his home medications several years ago but has not seen a healthcare provider since. He was admitted 09/04/2019 for right-sided weakness suspicious for CVA. 09/06/2019. No acute events overnight. Patient is complaining of right lower extremity weakness, stating that he would like to be placed in a short-term rehab as he thinks he may not be able to take care of himself at home. Denies any new neurological symptoms, denies any fever, chills, nausea, vomiting, diarrhea, constipation or any urinary symptoms. Patient is pending transfer to SNF. 09/07/2019. No acute events overnight. Right lower extremity strength improving mildly, denies any fever, chills, nausea, vomiting, diarrhea, constipation or any urinary symptoms. Patient is pending placement. 09/08/2019. No acute events overnight. Still complaining of right lower extremity weakness and inability to ambulate much denies any new neurological symptoms. Complaining of, constipation. Denies any fever, chills, nausea, vomiting, diarrhea or any urinary symptoms. Patient is pending placement to rehab. 09/09/2019. Patient has been refusing his medications, Accu-Cheks and vitals, as well as physical therapy. On my encounter patient is comfortably resting in bed awake alert and oriented x3, when asked about the reason why he did not want his medication and physical therapy he states that he just does not want then. When asked about his disposition he states he he does not want to go to rehab instead wants to go home but he does not want to leave the hospital until Wednesday or Wednesday without giving any clear reason. Patient encouraged to cooperate with physical therapy so he can regain some strength and be safely discharged home however he states he does not want any physical therapy and he knows he will be able to take care of himself when he is discharged home. He did allow me to examine him and I have noted that he is able to lift his right upper extremity against gravity and his right upper extremity weakness improving however he would not walk or get off the bed for me so I could evaluate his gait. He denies any fever, chills, nausea, vomiting, diarrhea, constipation or any urinary symptoms. Reason For Visit: CVA Physical Exam Vital Signs: Temp Pulse Resp BP Pulse Ox 97.8 F 104 H 18 144/94 H 97 09/08/19 23:07 09/09/19 07:00 09/08/19 23:07 09/08/19 23:07 09/08/19 23:07 Intake & Output 09/08/19 09/09/19 09/10/19 06:59 06:59 06:59 Intake Total 840 100 Output Total 2 Balance 840 98 Weight 80.4 kg 80 kg General appearance: PRESENT: no acute distress, well-developed, well-nourished Respiratory exam: PRESENT: clear to auscultation chivo. ABSENT: rales, rhonchi, wheezes Cardiovascular exam: PRESENT: RRR. ABSENT: diastolic murmur, rubs, systolic murmur GI/Abdominal exam: PRESENT: normal bowel sounds, soft. ABSENT: distended, guarding, mass, organolmegaly, rebound, tenderness Neurological exam: PRESENT: alert, awake, oriented to person, oriented to place, oriented to time, oriented to situation, CN II-XII grossly intact, motor sensory deficit - Right lower extremity strength 3/5. Right upper extremity strength 4/5. Results Laboratory Results: 09/04/19 05:20 09/05/19 04:33 09/04/19 05:20 Troponin I < 0.012 Impressions: Head MRI 09/04/19 00:00 IMPRESSION: Positive study for acute nonhemorrhagic punctate lacunar infarct left thalamus. Chronic small vessel ischemic change elsewhere in the hemispheric white matter. EVIDENCE OF ACUTE STROKE: YES. Chest X-Ray 09/04/19 05:11 IMPRESSION: Clear lungs. Head CT 09/04/19 05:11 IMPRESSION: Atrophy and chronic small vessel ischemic changes with no acute intracranial abnormality. Hand X-Ray 09/04/19 05:12 IMPRESSION: No acute osseous findings. Carotid Doppler Study 09/04/19 08:34 IMPRESSION: 1. Right ICA with elevated velocities compatible with 50 - 69% st enosis. 2. No hemodynamically significant stenosis within the left ICA. Assessment and Plan - Diagnosis (1) CVA (cerebral vascular accident) Qualifiers: Laterality of affected vessel: right Is this a current diagnosis for this admission?: Yes Plan: Right upper and lower extremity worse on the right side. Still not able to ambulate without assistance. Denies any new focal neurological symptoms. Last known well greater than 12 hours ago prior to admission. Head CT benign. Head MRI shows acute nonhemorrhagic punctate lacunar infarct of the left thal amus with chronic small vessel ischemic changes. EKG shows normal sinus Carotid Doppler is negative for hemodynamically significant stenosis; does show a less than 69% stenosis of the right ICA A1c of 7.9% Lipid panel shows HDL 32, LDL 131, triglycerides 173, total cholesterol 183 Will consider echocardiogram if patient is noted to have any arrhythmias. He has not been on aspirin therapy recently; stopped all home medication several years ago. Continue aspirin. Continue Plavix x21 days for stroke reduction risk. Continue high intensity statin. Continue PT/OT/ST. 09/09/2019. Patient has been refusing his medications, Accu-Cheks and vitals, as well as physical therapy. On my encounter patient is comfortably resting in bed awake alert and oriented x3, when asked about the reason why he did not want his medication and physical therapy he states that he just does not want then. When asked about his disposition he states he he does not want to go to rehab instead wants to go home but he does not want to leave the hospital until Wednesday or Wednesday without giving any clear reason. Patient encouraged to cooperate with physical therapy so he can regain some strength and be safely discharged home however he states he does not want any physical therapy and he knows he will be able to take care of himself when he is discharged home. He did allow me to examine him and I have noted that he is able to lift his right upper extremity against gravity and his right upper extremity weakness improving however he would not walk or get off the bed for me so I could evaluate his gait. He denies any fever, chills, nausea, vomiting, diarrhea, constipation or any urinary symptoms. (2) Diabetes Qualifiers: Diabetes mellitus type: type 2 Diabetes mellitus complication status: with hyperglycemia Is this a current diagnosis for this admission?: Yes Plan: A1c of 7.9% Patient has been off of his home medications for several years. He is placed on a consistent carb/cardiac diet. Accu-Cheks before meals and at bedtime with Humalog for sliding scale coverage. Hyperglycemia protocol placed. Appropriate to be discharged on twice daily metformin. (3) Hyperlipidemia Is this a current diagnosis for this admission?: Yes Plan: HDL 32, LDL 131, triglycerides 173, cholesterol 183 Consistent carb/cardiac diet. Continue high intensity statin. Follow-up with PCP for evaluation of liver chemistries. (4) Non compliance w medication regimen Is this a current diagnosis for this admission?: Yes Plan: Education and reinforcement of lifestyle and dietary modifications, and medication compliance. Discharge planning is consulted; patient will benefit from home health nursing for disease and medication education and management. (5) Tobacco dependence Is this a current diagnosis for this admission?: Yes Plan: Smoking cessation encouraged. Nicotine or placement therapies provided. (6) Constipation Qualifiers: Constipation type: drug induced constipation Qualified Code(s): K59.03 - Drug induced constipation Is this a current diagnosis for this admission?: Yes Plan: Likely drug induced by tramadol. Started on bowel regimen. Denies any abdominal pain. Passing flatus.
[2019-09-09] MEDS: ASPIRIN 81 MG TABLET, ENT COATED PO SCH (10:27)
[2019-09-09] MEDS: CLOPIDOGREL BISULFATE 75 MG TABLET PO SCH (10:27)
[2019-09-09] MEDS: FAMOTIDINE 20 MG TABLET PO SCH ×2 (10:27→22:42)
[2019-09-09] MEDS: FLUOXETINE HCL 20 MG CAPSULE PO SCH (14:02)
[2019-09-09] MEDS: ATORVASTATIN CALCIUM 80 MG TABLET PO SCH (22:42)
[2019-09-10] MEDS ORDERED: METOPROLOL TARTRATE PF/INJ 5 MG/5 ML SDV IV ONE (02:15)
[2019-09-10] MEDS: HEPARIN SOD (PORCINE) 5,000 UNIT/ML 1 ML VIAL SUBCUT SCH (06:18)
[2019-09-10] MEDS: METOPROLOL SUCCINATE 25 MG TAB.SR.24H PO SCH ×3 (09:27→18:31)
[2019-09-10] MEDS: FLUOXETINE HCL 20 MG CAPSULE PO SCH (09:27)
[2019-09-10] MEDS: FAMOTIDINE 20 MG TABLET PO SCH ×2 (09:27→22:33)
[2019-09-10] MEDS: INSULIN LISPRO 100 UNIT/ML 3 ML VIAL SUBCUT SCH ×4 (09:27→22:33)
[2019-09-10] MEDS: ASPIRIN 81 MG TABLET, ENT COATED PO SCH (09:27)
[2019-09-10] MEDS: DOCUSATE SODIUM 100 MG CAPSULE PO SCH ×2 (09:27→18:30)
--- NOTE | 2019-09-10 12:04 | EKG REPORT ---
SEVERITY:- ABNORMAL ECG - ATRIAL FIBRILLATION BORDERLINE PROLONGED QT INTERVAL : Confirmed by: Son Sweet 10-Sep-2019 12:03:05
--- NOTE | 2019-09-10 12:22 | PDOC PROGRESS REPORT ---
Subjective Progress Note for:: 09/10/19 Subjective:: The patient is a 74-year-old male with a past medical history of hypertension, diabetes mellitus, hyperlipidemia, and tobacco dependence. He reports that he discontinued taking his home medications several years ago but has not seen a healthcare provider since. He was admitted 09/04/2019 for right-sided weakness suspicious for CVA. 09/06/2019. No acute events overnight. Patient is complaining of right lower extremity weakness, stating that he would like to be placed in a short-term rehab as he thinks he may not be able to take care of himself at home. Denies any new neurological symptoms, denies any fever, chills, nausea, vomiting, diarrhea, constipation or any urinary symptoms. Patient is pending transfer to SNF. 09/07/2019. No acute events overnight. Right lower extremity strength improving mildly, denies any fever, chills, nausea, vomiting, diarrhea, constipation or any urinary symptoms. Patient is pending placement. 09/08/2019. No acute events overnight. Still complaining of right lower extremity weakness and inability to ambulate much denies any new neurological symptoms. Complaining of, constipation. Denies any fever, chills, nausea, vomiting, diarrhea or any urinary symptoms. Patient is pending placement to rehab. 09/09/2019. Patient has been refusing his medications, Accu-Cheks and vitals, as well as physical therapy. On my encounter patient is comfortably resting in bed awake alert and oriented x3, when asked about the reason why he did not want his medication and physical therapy he states that he just does not want then. When asked about his disposition he states he he does not want to go to rehab instead wants to go home but he does not want to leave the hospital until Wednesday or Wednesday without giving any clear reason. Patient encouraged to cooperate with physical therapy so he can regain some strength and be safely discharged home however he states he does not want any physical therapy and he knows he will be able to take care of himself when he is discharged home. He did allow me to examine him and I have noted that he is able to lift his right upper extremity against gravity and his right upper extremity weakness improving however he would not walk or get off the bed for me so I could evaluate his gait. He denies any fever, chills, nausea, vomiting, diarrhea, constipation or any urinary symptoms. 09/10/2019. Patient developed A. fib RVR overnight, otherwise stable, this morning was able to see patient accompanied by 2 of his daughters, patient is alert oriented x3, more pleasant and cooperative with physical examination since being started on Prozac, denies any fever, chills, nausea, vomiting, diarrhea, constipation or any urinary symptoms. Reason For Visit: CVA Physical Exam Vital Signs: Temp Pulse Resp BP Pulse Ox 97.6 F 153 H 16 124/84 99 09/09/19 23:01 09/10/19 07:52 09/10/19 07:52 09/10/19 07:52 09/10/19 07:52 Intake & Output 09/09/19 09/10/19 09/11/19 06:59 06:59 06:59 Intake Total 100 300 Output Total 2 Balance 98 300 Weight 80 kg 81 kg General appearance: PRESENT: no acute distress, well-developed, well-nourished Head exam: PRESENT: atraumatic, normocephalic Respiratory exam: PRESENT: clear to auscultation chivo. ABSENT: rales, rhonchi, wheezes Cardiovascular exam: PRESENT: irregular rhythm. ABSENT: diastolic murmur, rubs, systolic murmur GI/Abdominal exam: PRESENT: normal bowel sounds, soft. ABSENT: distended, guarding, mass, organolmegaly, rebound, tenderness Neurological exam: PRESENT: alert, awake, oriented to person, oriented to place, oriented to time, CN II-XII grossly intact. ABSENT: motor sensory deficit - Lower extremity strength 3/5. Results Laboratory Results: 09/04/19 05:20 09/05/19 04:33 09/04/19 05:20 Troponin I < 0.012 Impressions: Head MRI 09/04/19 00:00 IMPRESSION: Positive study for acute nonhemorrhagic punctate lacunar infarct left thalamus. Chronic small vessel ischemic change elsewhere in the hemispheric white matter. EVIDENCE OF ACUTE STROKE: YES. Chest X-Ray 09/04/19 05:11 IMPRESSION: Clear lungs. Head CT 09/04/19 05:11 IMPRESSION: Atrophy and chronic small vessel ischemic changes with no acute intracranial abnormality. Hand X-Ray 09/04/19 05:12 IMPRESSION: No acute osseous findings. Carotid Doppler Study 09/04/19 08:34 IMPRESSION: 1. Right ICA with elevated velocities compatible with 50 - 69% stenosis. 2. No hemodynamically significant stenosis within the left ICA. Assessment and Plan - Diagnosis (1) Atrial fibrillation with RVR Is this a current diagnosis for this admission?: Yes Plan: New onset. CHADs Sore 5 Discussed risk and benefit of chronic anticoagulation with patient and family. They would like to start with Coumadin. Continue Toprol-XL 25 mg p.o. twice daily, IV metoprolol as needed. Will switch to Cardizem if not rate controlled. Started on weight-based Lovenox bridge to Coumadin. INR goal of 2-2.5. (2) CVA (cerebral vascular accident) Qualifiers: Laterality of affected vessel: right Is this a current diagnosis for this admission?: Yes Plan: Right upper and lower extremity worse on the right side. Still not able to ambulate without assistance. Denies any new focal neurological symptoms. Last known well greater than 12 hours ago prior to admission. Head CT benign. Head MRI shows acute nonhemorrhagic punctate lacunar infarct of the left thalamus with chronic small vessel ischemic changes. EKG shows normal sinus Carotid Doppler is negative for hemodynamically significant stenosis; does show a less than 69% stenosis of the right ICA A1c of 7.9% Lipid panel shows HDL 32, LDL 131, triglycerides 173, total cholesterol 183 Will consider echocardiogram if patient is noted to have any arrhythmias. He has not been on aspirin therapy recently; stopped all home medication several years ago. Continue aspirin. Continue Plavix x21 days for stroke reduction risk. Continue high intensity statin. Continue PT/OT/ST. (3) Diabetes Qualifiers: Diabetes mellitus type: type 2 Diabetes mellitus complication status: with hyperglycemia Is this a current diagnosis for this admission?: Yes Plan: A1c of 7.9% Patient has been off of his home medications for several years. He is placed on a consistent carb/cardiac diet. Accu-Cheks before meals and at bedtime with Humalog for sliding scale coverage. Hyperglycemia protocol placed. Appropriate to be discharged on twice daily metformin. (4) Hyperlipidemia Is this a current diagnosis for this admission?: Yes Plan: HDL 32, LDL 131, triglycerides 173, cholesterol 183 Consistent carb/cardiac diet. Continue high intensity statin. Follow-up with PCP for evaluation of liver chemistries. (5) Non compliance w medication regimen Is this a current diagnosis for this admission?: Yes Plan: Education and reinforcement of lifestyle and dietary modifications, and medication compliance. Discharge planning is consulted; patient will benefit from home health nursing for disease and medication education and management. (6) Tobacco dependence Is this a current diagnosis for this admission?: Yes Plan: Smoking cessation encouraged. Nicotine or placement therapies provided. (7) Constipation Qualifiers: Constipation type: drug induced constipation Qualified Code(s): K59.03 - Drug induced constipation Is this a current diagnosis for this admission?: Yes Plan: Resolved. DC tramadol. Avoid opioids. High-fiber diet. Continue bowel regimen. (8) Depression Is this a current diagnosis for this admission?: Yes Plan: Denies any suicidal or homicidal ideation. Patient was noted to be very depressed and non-engaging and staying in bed all day and refusing meds and vitals. On 09/09/2019 discussed with daughter who is POA and patient himself and I suggested starting him on Prozac. They agreed to give it a try. Patient has significant improvement since being started on Prozac, he is more engaging, cooperative with physical examination and taking his medications.
[2019-09-10 12:32] LABS: HEMOGLOBIN 16.1 g/dL (13.5-17.0); MEAN CORPUSCULAR HEMOGLOBIN 33.5 pg (27.0-33.4); MEAN CORPUSCULAR HGB CONC 35.7 g/dL (32.0-36.0); MEAN CORPUSCULAR VOLUME 94 fl (80-97); PLATELET COUNT 185 10^3/uL (150-450); RED CELL DISTRIBUTION WIDTH 12.7 % (11.5-14.0); WHITE BLOOD COUNT 9.1 10^3/uL (4.0-10.5)
[2019-09-10] MEDS: ENOXAPARIN SODIUM INJ 80 MG/0.8 ML DISP.SYRIN SUBCUT SCH ×2 (14:59→22:34)
[2019-09-10] MEDS ORDERED: WARFARIN SODIUM 2.5 MG TABLET PO SCH (22:00)
[2019-09-10] MEDS: ATORVASTATIN CALCIUM 80 MG TABLET PO SCH (22:33)
[2019-09-11] MEDS: METOPROLOL SUCCINATE 25 MG TAB.SR.24H PO SCH ×2 (06:39→17:07)
[2019-09-11 07:11] LABS: HEMATOCRIT 45.5 % (37.9-51.0); MEAN CORPUSCULAR HEMOGLOBIN 33.5 pg (27.0-33.4); MEAN CORPUSCULAR HGB CONC 35.1 g/dL (32.0-36.0); MEAN CORPUSCULAR VOLUME 95 fl (80-97); PLATELET COUNT 181 10^3/uL (150-450); RED BLOOD COUNT 4.78 10^6/uL (4.35-5.55); RED CELL DISTRIBUTION WIDTH 12.9 % (11.5-14.0)
[2019-09-11 07:36] LABS: INTERNATIONAL RATION (INR) 1.11; PROTHROMBIN TIME 14.4 SEC (11.4-15.4)
[2019-09-11] MEDS: INSULIN LISPRO 100 UNIT/ML 3 ML VIAL SUBCUT SCH ×4 (09:00→22:20)
[2019-09-11] MEDS: FAMOTIDINE 20 MG TABLET PO SCH ×2 (09:01→22:20)
[2019-09-11] MEDS: DOCUSATE SODIUM 100 MG CAPSULE PO SCH ×2 (09:01→17:05)
[2019-09-11] MEDS: ENOXAPARIN SODIUM INJ 80 MG/0.8 ML DISP.SYRIN SUBCUT SCH ×2 (09:01→22:23)
[2019-09-11] MEDS: ASPIRIN 81 MG TABLET, ENT COATED PO SCH (09:01)
[2019-09-11] MEDS: FLUOXETINE HCL 20 MG CAPSULE PO SCH (09:01)
--- NOTE | 2019-09-11 09:25 | PDOC PROGRESS REPORT ---
Subjective Progress Note for:: 09/11/19 Subjective:: The patient is a 74-year-old male with a past medical history of hypertension, diabetes mellitus, hyperlipidemia, and tobacco dependence. He reports that he discontinued taking his home medications several years ago but has not seen a healthcare provider since. He was admitted 09/04/2019 for right-sided weakness suspicious for CVA. 09/06/2019. No acute events overnight. Patient is complaining of right lower extremity weakness, stating that he would like to be placed in a short-term rehab as he thinks he may not be able to take care of himself at home. Denies any new neurological symptoms, denies any fever, chills, nausea, vomiting, diarrhea, constipation or any urinary symptoms. Patient is pending transfer to SNF. 09/07/2019. No acute events overnight. Right lower extremity strength improving mildly, denies any fever, chills, nausea, vomiting, diarrhea, constipation or any urinary symptoms. Patient is pending placement. 09/08/2019. No acute events overnight. Still complaining of right lower extremity weakness and inability to ambulate much denies any new neurological symptoms. Complaining of, constipation. Denies any fever, chills, nausea, vomiting, diarrhea or any urinary symptoms. Patient is pending placement to rehab. 09/09/2019. Patient has been refusing his medications, Accu-Cheks and vitals, as well as physical therapy. On my encounter patient is comfortably resting in bed awake alert and oriented x3, when asked about the reason why he did not want his medication and physical therapy he states that he just does not want then. When asked about his disposition he states he he does not want to go to rehab instead wants to go home but he does not want to leave the hospital until Wednesday or Wednesday without giving any clear reason. Patient encouraged to cooperate with physical therapy so he can regain some strength and be safely discharged home however he states he does not want any physical therapy and he knows he will be able to take care of himself when he is discharged home. He did allow me to examine him and I have noted that he is able to lift his right upper extremity against gravity and his right upper extremity weakness improving however he would not walk or get off the bed for me so I could evaluate his gait. He denies any fever, chills, nausea, vomiting, diarrhea, constipation or any urinary symptoms. 09/10/2019. Patient developed A. fib RVR overnight, otherwise stable, this morning was able to see patient accompanied by 2 of his daughters, patient is alert oriented x3, more pleasant and cooperative with physical examination since being started on Prozac, denies any fever, chills, nausea, vomiting, diarrhea, constipation or any urinary symptoms. 09/11/2019. No acute events overnight. Patient is more cooperative with physical examination vitals. More engaging and communicative. Right lower extremity weakness improving. Denies any fever, chills, nausea, vomiting, diarrhea, constipation or any urinary symptoms. Reason For Visit: CVA Physical Exam Vital Signs: Temp Pulse Resp BP Pulse Ox 97.8 F 89 18 122/68 97 09/11/19 07:23 09/11/19 07:23 09/11/19 07:23 09/11/19 07:23 09/11/19 07:23 Intake & Output 09/10/19 09/11/19 09/12/19 06:59 06:59 06:59 Intake Total 300 1957 Balance 300 1957 Weight 81 kg 81.2 kg General appearance: PRESENT: no acute distress, well-developed, well-nourished Head exam: PRESENT: atraumatic, normocephalic Respiratory exam: PRESENT: clear to auscultation chivo. ABSENT: rales, rhonchi, wheezes Cardiovascular exam: PRESENT: RRR. ABSENT: diastolic murmur, rubs, systolic murmur GI/Abdominal exam: PRESENT: normal bowel sounds, soft. ABSENT: distended, guarding, mass, organolmegaly, rebound, tenderness Neurological exam: PRESENT: alert, awake, oriented to person, oriented to place, oriented to time, oriented to situation, CN II-XII grossly intact, motor sensory deficit - RLE 3/5 Results Laboratory Results: 09/11/19 06:24 09/05/19 04:33 09/10/19 09/11/19 12: 06:24 WBC 9.1 11.0 H RBC 4.80 4.78 Hgb 16.1 16.0 Hct 45.0 45.5 MCV 94 95 MCH 33.5 H 33.5 H MCHC 35.7 35.1 RDW 12.7 12.9 Plt Count 185 181 09/04/19 05:20 Troponin I < 0.012 Impressions: Head MRI 09/04/19 00:00 IMPRESSION: Positive study for acute nonhemorrhagic punctate lacunar infarct left thalamus. Chronic small vessel ischemic change elsewhere in the hemispheric white matter. EVIDENCE OF ACUTE STROKE: YES. Chest X-Ray 09/04/19 05:11 IMPRESSION: Clear lungs. Head CT 09/04/19 05:11 IMPRESSION: Atrophy and chronic small vessel ischemic changes with no acute intracranial abnormality. Hand X-Ray 09/04/19 05:12 IMPRESSION: No acute osseous findings. Carotid Doppler Study 09/04/19 08:34 IMPRESSION: 1. Right ICA with elevated velocities compatible with 50 - 69% stenosis. 2. No hemodynamically significant stenosis within the left ICA. Assessment and Plan - Diagnosis (1) Atrial fibrillation with RVR Is this a current diagnosis for this admission?: Yes Plan: New onset. CHADs Sore 5 Discussed risk and benefit of chronic anticoagulation with patient and family. They would like to start with Coumadin. Continue Toprol-XL 25 mg p.o. twice daily, IV metoprolol as needed. Will switch to Cardizem if not rate controlled. Started on weight-based Lovenox bridge to Coumadin. INR goal of 2-2.5. (2) CVA (cerebral vascular accident) Qualifiers: Laterality of affected vessel: right Is this a current diagnosis for this admission?: Yes Plan: Right upper and lower extremity worse on the right side. Still not able to ambulate without assistance. Denies any new focal neurological symptoms. Last known well greater than 12 hours ago prior to admission. Head CT benign. Head MRI shows acute nonhemorrhagic punctate lacunar infarct of the left thalamus with chronic small vessel ischemic changes. EKG shows normal sinus Carotid Doppler is negative for hemodynamically significant stenosis; does show a less than 69% stenosis of the right ICA A1c of 7.9% Lipid panel shows HDL 32, LDL 131, triglycerides 173, total cholesterol 183 Will consider echocardiogram if patient is noted to have any arrhythmias. He has not been on aspirin therapy recently; stopped all home medication several years ago. Continue aspirin. Continue high intensity statin. Continue PT/OT/ST. (3) Diabetes Qualifiers: Diabetes mellitus type: type 2 Diabetes mellitus complication status: with hyperglycemia Is this a current diagnosis for this admission?: Yes Plan: A1c of 7.9% Patient has been off of his home medications for several years. He is placed on a consistent carb/cardiac diet. Accu-Cheks before meals and at bedtime with Humalog for sliding scale coverage. Hyperglycemia protocol placed. Appropriate to be discharged on twice daily metformin. (4) Hyperlipidemia Is this a current diagnosis for this admission?: Yes Plan: HDL 32, LDL 131, triglycerides 173, cholesterol 183 Consistent carb/cardiac diet. Continue high intensity statin. Follow-up with PCP for evaluation of liver chemistries. (5) Non compliance w medication regimen Is this a current diagnosis for this admission?: Yes Plan: Education and reinforcement of lifestyle and dietary modifications, and medication compliance. Discharge planning is consulted; patient will benefit from home health nursing for disease and medication education and management. (6) Tobacco dependence Is this a current diagnosis for this admission?: Yes Plan: Smoking cessation encouraged. Nicotine or placement therapies provided. (7) Constipation Qualifiers: Constipation type: drug induced constipation Qualified Code(s): K59.03 - Drug induced constipation Is this a current diagnosis for this admission?: Yes Plan: Resolved. DC tramadol. Avoid opioids. High-fiber diet. Continue bowel regimen. (8) Depression Is this a current diagnosis for this admission?: Yes Plan: Denies any suicidal or homicidal ideation. Patient was noted to be very depressed and non-engaging and staying in bed all day and refusing meds and vitals. On 09/09/2019 discussed with daughter who is POA and patient himself and I suggested starting him on Prozac. They agreed to give it a try. Patient has significant improvement since being started on Prozac, he is more engaging, cooperative with physical examination and taking his medications. Unfortunately Prozac need to be switched to Zoloft as patient has to be started on Coumadin and there is significant drug-related reaction.
[2019-09-11] MEDS: SERTRALINE HCL 50 MG TABLET PO SCH (10:02)
[2019-09-11] MEDS ORDERED: DEXTROSE 50%-WATER 25 GM/50 ML DISP.SYRIN IV PRN ×2 (17:35)
[2019-09-11] MEDS ORDERED: GLUCAGON,HUMAN RECOMB 1 MG INJ IM PRN (17:35)
[2019-09-11] MEDS ORDERED: DEXTROSE 40% GEL 15 GM TUBE PO PRN ×2 (17:35)
[2019-09-11] MEDS ORDERED: WARFARIN SODIUM 5 MG TABLET PO SCH (22:00)
[2019-09-11] MEDS: ATORVASTATIN CALCIUM 80 MG TABLET PO SCH (22:19)
[2019-09-11] MEDS: INSULIN GLARGINE,HUM.REC.ANLOG 1,000 UNIT/10 ML VIAL SUBCUT SCH (22:22)
[2019-09-11] MEDS: WARFARIN SODIUM 4 MG TABLET PO SCH (22:25)
[2019-09-12] MEDS: METOPROLOL SUCCINATE 25 MG TAB.SR.24H PO SCH ×2 (06:30→17:48)
[2019-09-12] MEDS: INSULIN LISPRO 100 UNIT/ML 3 ML VIAL SUBCUT SCH ×4 (11:27→21:43)
[2019-09-12] MEDS ORDERED: METOPROLOL SUCCINATE 25 MG TAB.SR.24H PO ONE (11:29)
[2019-09-12] MEDS: ASPIRIN 81 MG TABLET, ENT COATED PO SCH (11:36)
[2019-09-12] MEDS: FAMOTIDINE 20 MG TABLET PO SCH ×2 (11:36→21:44)
[2019-09-12] MEDS: SERTRALINE HCL 50 MG TABLET PO SCH (11:36)
[2019-09-12] MEDS: DOCUSATE SODIUM 100 MG CAPSULE PO SCH ×2 (11:36→17:48)
[2019-09-12] MEDS: ENOXAPARIN SODIUM INJ 80 MG/0.8 ML DISP.SYRIN SUBCUT SCH ×2 (11:36→21:44)
[2019-09-12 14:40] LABS: APPEARANCE,URINE SLIGHTLY-CLOUDY; BILIRUBIN,URINE NEGATIVE (NEGATIVE); COLOR,URINE YELLOW; GLUCOSE, URINE >=500 mg/dL (NEGATIVE); KETONES,URINE TRACE mg/dL (NEGATIVE); LEUKOCYTE ESTERASE,URINE NEGATIVE (NEGATIVE); NITRITE,URINE NEGATIVE (NEGATIVE); PROTEIN,URINE 30 mg/dL (NEGATIVE); URINE SPECIFIC GRAVITY 1.038
--- NOTE | 2019-09-12 17:55 | PDOC PROGRESS REPORT ---
Subjective Progress Note for:: 09/12/19 Subjective:: No adverse events overnight. He was refusing physical therapy, Occupational Therapy, and his medications this morning. Subsequently his heart rate went up to around 150, mostly between 140 and 150. He had been refusing to go to a usp facility wanted to stay here for the duration of his physical therapy. I explained to him that that was not possible, that we do not do here the types of physical therapy that they can do in a usp facility. He then agreed to work with physical therapy and take his medications and to go to a usp facility. Then with physical therapy came back around to see him, he refused to work with them. Reason For Visit: CVA Physical Exam Vital Signs: Temp Pulse Resp BP Pulse Ox 98.1 F 142 H 17 119/81 100 09/12/19 15:30 09/12/19 15:30 09/12/19 15:30 09/12/19 15:30 09/12/19 15:30 Intake & Output 09/11/19 09/12/19 09/13/19 06:59 06:59 06:59 Intake Total 1956 480 480 Balance 1956 480 480 Weight 81.2 kg 78.1 kg General appearance: PRESENT: no acute distress, disheveled. ABSENT: cooperative Respiratory exam: PRESENT: clear to auscultation chivo, symmetrical, unlabored. ABSENT: accessory muscle use, chest wall tenderness, crackles, prolonged expiratory phas, rhonchi, tachypnea, wheezes Cardiovascular exam: PRESENT: irregular rhythm, tachycardia Pulses: PRESENT: normal carotid pulses Vascular exam: PRESENT: normal capillary refill GI/Abdominal exam: PRESENT: normal bowel sounds, soft. ABSENT: distended, guar ding, rebound, tenderness Extremities exam: ABSENT: clubbing, pedal edema Musculoskeletal exam: PRESENT: normal inspection. ABSENT: deformity Neurological exam: PRESENT: alert, awake, oriented to person, oriented to place, oriented to situation Psychiatric exam: PRESENT: unusual affect Skin exam: PRESENT: dry, warm Results Laboratory Results: 09/11/19 06:24 09/05/19 04:33 09/12/19 14:10 Urine Color YELLOW Urine Appearance SLIGHTLY-CLOUDY Urine pH 5.0 Ur Specific Proctor 1.038 Urine Protein 30 H Urine Glucose (UA) >=500 H Urine Ketones TRACE H Urine Blood SMALL H Urine Nitrite NEGATIVE Ur Leukocyte Esterase NEGATIVE Urine WBC (Auto) 4 Urine RBC (Auto) 1 09/04/19 05:20 Troponin I < 0.012 Impressions: Head MRI 09/04/19 00:00 IMPRESSION: Positive study for acute nonhemorrhagic punctate lacunar infarct left thalamus. Chronic small vessel ischemic change elsewhere in the hemispheric white matter. EVIDENCE OF ACUTE STROKE: YES. Chest X-Ray 09/04/19 05:11 IMPRESSION: Clear lungs. Head CT 09/04/19 05:11 IMPRESSION: Atrophy and chronic small vessel ischemic changes with no acute intracranial abnormality. Hand X-Ray 09/04/19 05:12 IMPRESSION: No acute osseous findings. Carotid Doppler Study 09/04/19 08:34 IMPRESSION: 1. Right ICA with elevated velocities compatible with 50 - 69% stenosis. 2. No hemodynamically significant stenosis within the left ICA. Assessment and Plan - Diagnosis (1) CVA (cerebral vascular accident) Qualifiers: Laterality of affected vessel: right Is this a current diagnosis for this admission?: Yes Plan: I am not quite certain what is going to this man's mind. He does not want us to do any of the things that will reduce his risk of another stroke. One moment he says he will take his medications and work with therapy, the next minute he refuses everything. As a result his heart rate is uncontrolled, his blood sugars uncontrolled, and he is not doing any therapy. We have everything in place to reduce his risk of another stroke and to get him physical therapy if he will cooperate. (2) Atrial fibrillation with RVR Is this a current diagnosis for this admission?: Yes Plan: We do not know how well therapy is working because he inconsistently takes his medications. (3) Diabetes Qualifiers: Diabetes mellitus type: type 2 Diabetes mellitus complication status: with hyperglycemia Is this a current diagnosis for this admission?: Yes Plan: Again, we do not know how well the therapy would work because he is refusing all of his medications (4) Hyperlipidemia Is this a current diagnosis for this admission?: Yes Plan: As above (5) Tobacco dependence Is this a current diagnosis for this admission?: Yes Plan: Strongly encourage cessation, but I suspect he is not terribly motivated to quit - Plan Summary Summary: If he is refusing medications and to work with therapy tomorrow, I am going to discharge him home due to his noncompliance. I spoke with Alvina Lopez from risk management and discussed the case with her and this is what she recommended. - Time Time Spent with patient: 25-34 minutes
[2019-09-12] MEDS: INSULIN GLARGINE,HUM.REC.ANLOG 1,000 UNIT/10 ML VIAL SUBCUT SCH (21:42)
[2019-09-12] MEDS: WARFARIN SODIUM 4 MG TABLET PO SCH (21:42)
[2019-09-12] MEDS: ATORVASTATIN CALCIUM 80 MG TABLET PO SCH (21:44)
[2019-09-13] MEDS: METOPROLOL SUCCINATE 25 MG TAB.SR.24H PO SCH ×2 (06:19→18:11)
[2019-09-13] MEDS ORDERED: METOPROLOL SUCCINATE 25 MG TAB.SR.24H PO ONE (08:43)
[2019-09-13] MEDS: INSULIN LISPRO 100 UNIT/ML 3 ML VIAL SUBCUT SCH ×4 (08:49→22:14)
[2019-09-13] MEDS: DOCUSATE SODIUM 100 MG CAPSULE PO SCH ×2 (10:15→18:11)
[2019-09-13] MEDS: ASPIRIN 81 MG TABLET, ENT COATED PO SCH (10:15)
[2019-09-13] MEDS: FAMOTIDINE 20 MG TABLET PO SCH ×2 (10:16→22:16)
[2019-09-13] MEDS: ENOXAPARIN SODIUM INJ 80 MG/0.8 ML DISP.SYRIN SUBCUT SCH ×2 (10:16→22:15)
[2019-09-13] MEDS: SERTRALINE HCL 50 MG TABLET PO SCH (10:16)
[2019-09-13 14:45] LABS: INTERNATIONAL RATION (INR) 1.06; PROTHROMBIN TIME 13.8 SEC (11.4-15.4)
[2019-09-13 14:46] LABS: HEMATOCRIT 47.7 % (37.9-51.0); HEMOGLOBIN 16.7 g/dL (13.5-17.0); MEAN CORPUSCULAR HEMOGLOBIN 33.5 pg (27.0-33.4); MEAN CORPUSCULAR HGB CONC 35.1 g/dL (32.0-36.0); MEAN CORPUSCULAR VOLUME 95 fl (80-97); PLATELET COUNT 204 10^3/uL (150-450); RED CELL DISTRIBUTION WIDTH 12.8 % (11.5-14.0); WHITE BLOOD COUNT 11.9 10^3/uL (4.0-10.5)
--- NOTE | 2019-09-13 17:49 | PDOC PROGRESS REPORT ---
Subjective Progress Note for:: 09/13/19 Subjective:: He was noncompliant last night and apparently spit it 1 of the nursing assistants. He took some of his medications this morning as a result his blood sugar improved and his heart rate was in the normal range. He did work with occupational therapy. He agreed to work with physical therapy. Reason For Visit: CVA Physical Exam Vital Signs: Temp Pulse Resp BP Pulse Ox 98.1 F 83 17 103/75 99 09/13/19 15:10 09/13/19 15:10 09/13/19 15:10 09/13/19 15:10 09/13/19 15:10 Intake & Output 09/12/19 09/13/19 09/14/19 06:59 06:59 06:59 Intake Total 480 730 360 Balance 480 730 360 Weight 78.1 kg 77.9 kg 77.9 kg General appearance: PRESENT: no acute distress, disheveled. ABSENT: cooperative Respiratory exam: PRESENT: clear to auscultation chivo, symmetrical, unlabored. ABSENT: accessory muscle use, chest wall tenderness, crackles, prolonged expiratory phas, rhonchi, tachypnea, wheezes Cardiovascular exam: PRESENT: irregular rhythm, tachycardia Pulses: PRESENT: normal carotid pulses Vascular exam: PRESENT: normal capillary refill GI/Abdominal exam: PRESENT: normal bowel sounds, soft. ABSENT: distended, guarding, rebound, tenderness Extremities exam: ABSENT: clubbing, pedal edema Musculoskeletal exam: PRESENT: normal inspection. ABSENT: deformity Neurological exam: PRESENT: alert, awake, oriented to person, oriented to place, oriented to situation Psychiatric exam: PRESENT: unusual affect Skin exam: PRESENT: dry, warm Results Laboratory Results: 09/13/19 14:26 09/05/19 04:33 09/13/19 14:26 WBC 11.9 H RBC 5.00 Hgb 16.7 Hct 47.7 MCV 95 MCH 33.5 H MCHC 35.1 RDW 12.8 Plt Count 204 09/04/19 05:20 Troponin I < 0.012 Impressions: Head MRI 09/04/19 00:00 IMPRESSION: Positive study for acute nonhemorrhagic punctate lacunar infarct left thalamus. Chronic small vessel ischemic change elsewhere in the hemispheric white matter. EVIDENCE OF ACUTE STROKE: YES. Chest X-Ray 09/04/19 05:11 IMPRESSION: Clear lungs. Head CT 09/04/19 05:11 IMPRESSION: Atrophy and chronic small vessel ischemic changes with no acute intracranial abnormality. Hand X-Ray 09/04/19 05:12 IMPRESSION: No acute osseous findings. Carotid Doppler Study 09/04/19 08:34 IMPRESSION: 1. Right ICA with elevated velocities compatible with 50 - 69% stenosis. 2. No hemodynamically significant stenosis within the left ICA. Assessment and Plan - Diagnosis (1) CVA (cerebral vascular accident) Qualifiers: Laterality of affected vessel: right Is this a current diagnosis for this admission?: Yes Plan: He was having some noncompliance again yesterday but today he was compliant with some things noncompliant with others. He was initially refusing blood draws and now he is allowing them. He worked with occupational therapy at a but I do not know if he worked with physical therapy. If he declined to work with physical therapy again, were going to send him home due to noncompliance. It seems like he might be trying to play some sort of game that will allow him to stay in the hospital as long as possible, and we are not going to participate in that sort of dysfunction. (2) Atrial fibrillation with RVR Is this a current diagnosis for this admission?: Yes Plan: His heart rate is under good control when he actually takes his medication (3) Diabetes Qualifiers: Diabetes mellitus type: type 2 Diabetes mellitus complication status: with hyperglycemia Is this a current diagnosis for this admission?: Yes Plan: Blood sugar control has improved when he agrees to take his medication (4) Hyperlipidemia Is this a current diagnosis for this admission?: Yes Plan: As above (5) Tobacco dependence Is this a current diagnosis for this admission?: Yes Plan: Strongly encourage cessation, but I suspect he is not terribly motivated to quit - Plan Summary Summary: If he is refusing medications and to work with therapy tomorrow, I am going to discharge him home due to his noncompliance. I spoke with Alvina Lopez from risk management and discussed the case with her and this is what she recommended. - Time Time Spent with patient: 15-24 minutes
[2019-09-13] MEDS: WARFARIN SODIUM 4 MG TABLET PO SCH (22:13)
[2019-09-13] MEDS: ATORVASTATIN CALCIUM 80 MG TABLET PO SCH (22:15)
[2019-09-13] MEDS: INSULIN GLARGINE,HUM.REC.ANLOG 1,000 UNIT/10 ML VIAL SUBCUT SCH (22:15)
[2019-09-14] MEDS ORDERED: DILTIAZEM HCL/D5W 125 MG/125 ML RTUINJ IV PRN (02:09)
[2019-09-14] MEDS: METOPROLOL SUCCINATE 25 MG TAB.SR.24H PO SCH ×2 (05:43→17:47)
[2019-09-14] MEDS: INSULIN LISPRO 100 UNIT/ML 3 ML VIAL SUBCUT SCH ×4 (10:29→23:40)
[2019-09-14] MEDS: FAMOTIDINE 20 MG TABLET PO SCH ×2 (10:30→23:40)
[2019-09-14] MEDS: ENOXAPARIN SODIUM INJ 80 MG/0.8 ML DISP.SYRIN SUBCUT SCH ×2 (10:30→23:41)
[2019-09-14] MEDS: SERTRALINE HCL 50 MG TABLET PO SCH (10:30)
[2019-09-14] MEDS: ASPIRIN 81 MG TABLET, ENT COATED PO SCH (10:30)
[2019-09-14] MEDS: DOCUSATE SODIUM 100 MG CAPSULE PO SCH ×2 (10:30→17:47)
--- NOTE | 2019-09-14 18:13 | PDOC PROGRESS REPORT ---
Subjective Progress Note for:: 09/14/19 Subjective:: We have been in the same pattern with this patient for several days. He will occasionally agree to take his medications but not always, and when he does not his blood sugar and his heart rate both go up. He is being difficult to deal with and is using foul language with the nurses in a mean fashion. He refused to cooperate with physical therapy again today. They have released him from their service because he continually refuses to work with them. I was told today that he would not be a candidate for a long term facility because of his behavior. Reason For Visit: CVA Physical Exam Vital Signs: Temp Pulse Resp BP Pulse Ox 97.7 F 148 H 17 105/86 H 98 09/14/19 15:22 09/14/19 15:22 09/14/19 15:22 09/14/19 15:22 09/14/19 15:22 Intake & Output 09/13/19 09/14/19 09/15/19 06:59 06:59 06:59 Intake Total 730 600 120 Output Total 0 0 Balance 730 600 120 Weight 77.9 kg 77.4 kg General appearance: PRESENT: no acute distress, disheveled. ABSENT: cooperative Respiratory exam: PRESENT: clear to auscultation chivo, symmetrical, unlabored. ABSENT: accessory muscle use, chest wall tenderness, crackles, prolonged expiratory phas, rhonchi, tachypnea, wheezes Cardiovascular exam: PRESENT: irregular rhythm, tachycardia Pulses: PRESENT: normal carotid pulses Vascular exam: PRESENT: normal capillary refill GI/Abdominal exam: PRESENT: normal bowel sounds, soft. ABSENT: distended, guarding, rebound, tenderness Extremities exam: ABSENT: clubbing, pedal edema Musculoskeletal exam: PRESENT: normal inspection. ABSENT: deformity Neurological exam: PRESENT: alert, awake, oriented to person, oriented to place, oriented to situation Psychiatric exam: PRESENT: unusual affect Skin exam: PRESENT: dry, warm Results Laboratory Results: 09/13/19 14:26 09/05/19 04:33 09/04/19 05:20 Troponin I < 0.012 Impressions: Head MRI 09/04/19 00:00 IMPRESSION: Positive study for acute nonhemorrhagic punctate lacunar infarct left thalamus. Chronic small vessel ischemic change elsewhere in the hemispheric white matter. EVIDENCE OF ACUTE STROKE: YES. Chest X-Ray 09/04/19 05:11 IMPRESSION: Clear lungs. Head CT 09/04/19 05:11 IMPRESSION: Atrophy and chronic small vessel ischemic changes with no acute intracranial abnormality. Hand X-Ray 09/04/19 05:12 IMPRESSION: No acute osseous findings. Carotid Doppler Study 09/04/19 08:34 IMPRESSION: 1. Right ICA with elevated velocities compatible with 50 - 69% stenosis. 2. No hemodynamically significant stenosis within the left ICA. Assessment and Plan - Diagnosis (1) CVA (cerebral vascular accident) Qualifiers: Laterality of affected vessel: right Is this a current diagnosis for this admission?: Yes Plan: I was planning on sending him home today because of his recurrent repetitive poor behavior and noncompliance with nearly all aspects of treatment. I suspect he is being manipulative to keep from going home, and also because he does not want to go to a long term facility for some reason. I spoke to his daughter who is at her wits end with him. I will get a capacity evaluation, but his daughter understands that if he is deemed to have capacity to make his own decisions then we have no choice but to send him home due to his noncompliance. (2) Atrial fibrillation with RVR Is this a current diagnosis for this admission?: Yes Plan: His medicine works when he agrees to take it (3) Diabetes Qualifiers: Diabetes mellitus type: type 2 Diabetes mellitus complication status: with hyperglycemia Is this a current diagnosis for this admission?: Yes Plan: Blood sugar control has improved when he agrees to take his medication (4) Hyperlipidemia Is this a current diagnosis for this admission?: Yes Plan: As above (5) Tobacco dependence Is this a current diagnosis for this admission?: Yes Plan: Strongly encourage cessation, but I suspect he is not terribly motivated to quit - Plan Summary Summary: If he is refusing medications and to work with therapy tomorrow, I am going to discharge him home due to his noncompliance. I spoke with Alvina Lopez from risk management and discussed the case with her and this is what she recommended.
--- NOTE | 2019-09-14 20:39 | PDOC CONSULTATION ---
Consultation-Blank Consultation: Chart review was conducted on this patient. The patient is a 74-year-old male with a medical history of CVA, hypertension, diabetes mellitus, hyperlipidemia, and tobacco dependence. He reports that he discontinued taking his home medications several years ago but has not seen a healthcare provider since. He was admitted 09/04/2019 for right-sided weakness and report of multiple falls daily. MRI of the brain confirmed an acute non- hemorrhagic infarct in the left thalamus and chronic microvascular white matter ischemia in the bifrontal and biparietal lobes. There was also evidence of several old lacunar infarcts in the basal ganglia. Head CT results were significant for global atrophy and chronic microvascular ischemia throughout the white matter. Review of physician and nursing notes indicate the patient has been refusing medications, physical and occupational therapies, interventional treatment, and discharge to a halfway home or rehab facility for several days.He has demonstrated instances of threatened aggression when frustrated as evidenced by yelling, screaming, and balling his fist as if to hit staff. Patient's physician has requested a capacity evaluation given's patient's ongoing refusal of all treatment and unwillingness to engage in discharge planning. However, several concerns are imminent when considering the capacity examination for this patient. First, this patient is just 10 days status post a major neurologic event in which his cognitive abilities have been affected as evidenced by radiographic imaging. It is not uncommon for steadfastness in the face of confusion to be present, nor is it uncommon for an increase in aggression when a patient is either overstimulated, feels threatened (patient's perception), or is required to alter their common routine. The patient is often experiencing a great deal of fear in terms of getting older, feeling a loss of control, feeling vulnerable and at risk, etc. This patient, in particular, has demonstrated he understands the risks of refusing his medications and medical interventions as evidenced by stating he understands he is at risk of another stroke by failing to comply. The patient was also able to manage his behavior (he complied with request) when advised by the nurse of the consequences of his behavior (should he choose to hit her). In summary, 10 days is not sufficient time for recovery of baseline neurocognitive functioning following a left thalamic stroke in a 74 year old individual. Though medically he may be stable or appropriate for discharge, it is not an appropriate time for a capacity evaluation. Given the location of the stroke, the neurovascular challenges the patient continues to experience, the ongoing carotid stenosis, and other complicating medical problems, a capacity evaluation would be more appropriate 60-90 days status post CVA. It may be helpful in working with this patient to collaboratively talk with this patient and ask what he would like to see as his discharge plan, how he would like to participate in that plan, etc. Taking this approach may help the patient to feel as though he maintains some level of control in a situation of which he feels as though he has none except to behave poorly or stubbornly. Please do not hesitate to contact the behavioral health office or myself at [phone] should you have any questions. Thank you for this kind referral and the opportunity to participate in this patient's care. Dr. Isrrael Colindres Neuropsychologist
[2019-09-14] MEDS: WARFARIN SODIUM 4 MG TABLET PO SCH (23:40)
[2019-09-14] MEDS: ATORVASTATIN CALCIUM 80 MG TABLET PO SCH (23:40)
[2019-09-14] MEDS: INSULIN GLARGINE,HUM.REC.ANLOG 1,000 UNIT/10 ML VIAL SUBCUT SCH (23:41)
[2019-09-15] MEDS: METOPROLOL SUCCINATE 25 MG TAB.SR.24H PO SCH (06:45)
[2019-09-15 07:31] LABS: HEMATOCRIT 50.6 % (37.9-51.0); HEMOGLOBIN 17.5 g/dL (13.5-17.0); INTERNATIONAL RATION (INR) 1.23; MEAN CORPUSCULAR HGB CONC 34.6 g/dL (32.0-36.0); MEAN CORPUSCULAR VOLUME 96 fl (80-97); PLATELET COUNT 248 10^3/uL (150-450); PROTHROMBIN TIME 15.6 SEC (11.4-15.4); RED CELL DISTRIBUTION WIDTH 12.8 % (11.5-14.0)
[2019-09-15] MEDS: INSULIN LISPRO 100 UNIT/ML 3 ML VIAL SUBCUT SCH ×2 (09:10→13:28)
[2019-09-15] MEDS: DOCUSATE SODIUM 100 MG CAPSULE PO SCH (09:10)
[2019-09-15] MEDS: SERTRALINE HCL 50 MG TABLET PO SCH (09:11)
[2019-09-15] MEDS: ASPIRIN 81 MG TABLET, ENT COATED PO SCH (09:11)
[2019-09-15] MEDS: FAMOTIDINE 20 MG TABLET PO SCH (09:11)
[2019-09-15] MEDS: ENOXAPARIN SODIUM INJ 80 MG/0.8 ML DISP.SYRIN SUBCUT SCH (09:16)
--- NOTE | 2019-09-15 09:17 | Progress Note ---
Provider Note Provider Note: I have collaboratively talked with this patient and asked him what he would like to see as his discharge plan, and how he would like to participate in that plan. His answer has been that he does not want to go home, and that he does not want to go to a custodial facility. He says that he wants to stay here. It is true that he has demonstrated that he understands the risks of refusing his medications and medical interventions as evidenced by stating he understands he is at risk of another stroke by failing to comply with our recommendations. It is also noted and true that the patient is able to manage his behavior as evidenced by complying with requests intermittently, when advised by nurses and staff of the consequences of his behaviors. This means that he is able to manage his behavior, and he does so selectively, when it suits him to do so at a particular point in time, because it enables him to maintain what he perceives as a level of control and helps him achieve the ends he desires. If he is able to understand the risks of refusing to comply with treatment, and if he is able to manage his behavior, as was noted by Dr. Colindres in her note, then the patient is suitable for discharge, as he is medically appropriate for discharge. We are doing nothing acutely for him that cannot be done either at home or at a custodial facility. With his behavior and pattern of noncompliance, however, he will not be suitable for a custodial facility, and he has already stated emphatically on numerous occasions that he does not want to go to a custodial facility. If he is able to understand the risks of refusing to comply with treatment here, he is able to understand the risks of missing out on the opportunity to obtain the benefits of going to a custodial facility for rehabilitation.
--- NOTE | 2019-09-15 15:57 | PDOC DISCHARGE SUMMARY ---
Impression - Admit/DC Date/PCP Admission Date/Primary Care Provider: 09/04/19 16:25 FIONA WHITE MD Discharge Date: 09/15/19 - Discharge Diagnosis (1) CVA (cerebral vascular accident) Is this a current diagnosis for this admission?: Yes (2) Atrial fibrillation with RVR Is this a current diagnosis for this admission?: Yes (3) Diabetes Is this a current diagnosis for this admission?: Yes (4) Hyperlipidemia Is this a current diagnosis for this admission?: Yes (5) Tobacco dependence Is this a current diagnosis for this admission?: Yes - Assessment Summary: If he is refusing medications and to work with therapy tomorrow, I am going to discharge him home due to his noncompliance. I spoke with Alvina Lopez from risk management and discussed the case with her and this is what she recommended. - Additional Information Resuscitation Status: Full Code Discharge Diet: As Tolerated, Regular Discharge Activity: Activity As Tolerated, Balance Activity w/Rest, Supervised Activity Referrals: FIONA WHITE MD [Primary Care Provider] - 09/25/19 2:30 pm Prescriptions: Aspirin [Adult Low Dose Aspirin EC] 81 mg PO DAILY #30 tablet. Warfarin Sodium [Coumadin 4 mg Tablet] 4 mg PO QHS #30 tablet Insulin Lispro [Humalog Insulin (Lispro) 100 unit/mL] 0 - 12 unit SUBCUT ACHS #1 bottle Insulin Glargine,Hum.rec.anlog [Lantus Insulin 100 Unit/1 ml 10 ml] 10 unit SUBCUT QHS #1 bottle Atorvastatin Calcium [Lipitor 80 mg Tablet] 80 mg PO QHS #30 tablet Metoprolol Succinate [Toprol Xl 25 mg Tab.sr] 25 mg PO Q12A #60 tab.sr.24h Sertraline HCl [Zoloft 50 mg Tablet] 50 mg PO DAILY #30 tablet Home Medications: Aspirin [Adult Low Dose Aspirin EC] 81 mg PO DAILY #30 tablet. 09/14/19 Atorvastatin Calcium [Lipitor 80 mg Tablet] 80 mg PO QHS #30 tablet 09/14/19 Insulin Glargine,Hum.rec.anlog [Lantus Insulin 100 Unit/1 ml 10 ml] 10 unit SUBCUT QHS #1 bottle 09/14/19 Insulin Lispro [Humalog Insulin (Lispro) 100 unit/mL] 0 - 12 unit SUBCUT ACHS #1 bottle 09/14/19 Metoprolol Succinate [Toprol Xl 25 mg Tab.sr] 25 mg PO Q12A #60 tab.sr.24h 09/14/19 Sertraline HCl [Zoloft 50 mg Tablet] 50 mg PO DAILY #30 tablet 09/14/19 Warfarin Sodium [Coumadin 4 mg Tablet] 4 mg PO QHS #30 tablet 09/14/19 History of Present Illiness History of Present Illness: JANNET HENAO is a 74 year old male with a past medical history of hypertension, diabetes mellitus, hyperlipidemia, and tobacco dependence. He reports that he discontinued taking his home medications several years ago but has not seen a healthcare provider since. He was admitted 09/04/2019 for right-sided weakness suspicious for CVA. Hospital Course Hospital Course: He had a lacunar infarct in the left thalamus. He had 50 to 69% stenosis of the right ICA. He had atrial fibrillation but refused an echocardiogram. We put him on metoprolol to control his heart rate and it did a good job of it, but he did not consistently take the medication here and refused it most of the time. We also started him on anticoagulation but he was inconsistent with this. He refused medications most of the time, and he refused physical therapy so many times that they dropped him from their service. He made it very clear that he did not want to go back home and he also did not want to go to a long-term facility, he wanted to stay here. We had multiple incidents with him more he got hostile and aggressive with staff, and he threatened to hit some of the staff and he spit it 1 of the nursing assistants. retirement facilities refused to take him. His daughter wanted a capacity evaluation to see if he understood what he was doing. Dr. Colindres noted that since he had had a stroke, it would be 60 to 90 days before he can have a proper capacity evaluation. I have collaboratively talked with this patient as Dr. Colindres suggested, and asked him what he would like to see as his discharge plan, and how he would like to participate in that plan. His answer has been that he does not want to go home, and that he does not want to go to a long-term facility. He says that he wants to stay here. It is true that he has demonstrated that he understands the risks of refusing his medications and medical interventions as evidenced by stating he understands he is at risk of another stroke by failing to comply with our recommendations. It is also noted and true that the patient is able to manage his behavior as evidenced by complying with requests intermittently, when advised by nurses and staff of the consequences of his behaviors. This means that he is able to manage his behavior, and he does so selectively, when it suits him to do so at a particular point in time, because it enables him to maintain what he perceives as a level of control and helps him achieve the ends he desires. If he is able to understand the risks of refusing to comply with treatment, and if he is able to manage his behavior, as was noted by Dr. Colindres in her note, then the patient is suitable for discharge, as he is medically appropriate for discharge. We are doing nothing acutely for him that cannot be done either at home or at a long-term facility. With his behavior and pattern of noncompliance, however, he will not be suitable for a long-term facility, and he has already stated emphatically on numerous occasions that he does not want to go to a long-term facility. If he is able to understand the risks of refusing to comply with treatment here, he is able to understand the risks of missing out on the opportunity to obtain the benefits of going to a long-term facility for rehabilitation. I spoke with his daughter and she was agreeable to home health. Whether or not the patient will work with them is another matter. I have spoken with the risk-management new accounts representative for this hospital and discussed the case, and they are in agreement and support this plan. Physical Exam Vital Signs: Temp Pulse Resp BP Pulse Ox 97.8 F 140 H 14 132/108 H 97 09/15/19 11:10 09/15/19 14:00 09/15/19 11:10 09/15/19 11:10 09/15/19 11:10 Intake & Output 09/14/19 09/15/19 09/16/19 06:59 06:59 06:59 Intake Total 600 480 360 Output Total 0 0 Balance 600 480 360 Weight 77.4 kg 75.5 kg General appearance: PRESENT: no acute distress, disheveled. ABSENT: cooperative Respiratory exam: PRESENT: clear to auscultation chivo, symmetrical, unlabored. ABSENT: accessory muscle use, chest wall tenderness, crackles, prolonged expiratory phas, rhonchi, tachypnea, wheezes Cardiovascular exam: PRESENT: irregular rhythm, tachycardia Pulses: PRESENT: normal carotid pulses Vascular exam: PRESENT: normal capillary refill GI/Abdominal exam: PRESENT: normal bowel sounds, soft. ABSENT: distended, guarding, rebound, tenderness Extremities exam: ABSENT: clubbing, pedal edema Musculoskeletal exam: PRESENT: normal inspection. ABSENT: deformity Neurological exam: PRESENT: alert, awake, oriented to person, oriented to place, oriented to situation Psychiatric exam: PRESENT: unusual affect Skin exam: PRESENT: dry, warm Results Laboratory Results: WBC 12.0 10^3/uL (4.0-10.5) H 09/15/19 07:04 RBC 5.30 10^6/uL (4.35-5.55) 09/15/19 07:04 Hgb 17.5 g/dL (13.5-17.0) H 09/15/19 07:04 Hct 50.6 % (37.9-51.0) 09/15/19 07:04 MCV 96 fl (80-97) 09/15/19 07:04 MCH 33.0 pg (27.0-33.4) 09/15/19 07:04 MCHC 34.6 g/dL (32.0-36.0) 09/15/19 07:04 RDW 12.8 % (11.5-14.0) 09/15/19 07:04 Plt Count 248 10^3/uL (150-450) 09/15/19 07:04 Lymph % (Auto) 16.2 % (13-45) 09/04/19 05:20 Maverick % (Auto) 12.1 % (3-13) 09/04/19 05:20 Eos % (Auto) 0.8 % (0-6) 09/04/19 05:20 Baso % (Auto) 0.8 % (0-2) 09/04/19 05:20 Absolute Neuts (auto) 5.9 10^3/uL (1.7-8.2) 09/04/19 05:20 Absolute Lymphs (auto) 1.4 10^3/uL (0.5-4.7) 09/04/19 05:20 Absolute Monos (auto) 1.0 10^3/uL (0.1-1.4) 09/04/19 05:20 Absolute Eos (auto) 0.1 10^3/uL (0.0-0.6) 09/04/19 05:20 Absolute Basos (auto) 0.1 10^3/uL (0.0-0.2) 09/04/19 05:20 Seg Neutrophils % 70.1 % (42-78) 09/04/19 05:20 PT 15.6 SEC (11.4-15.4) H 09/15/19 07:04 INR 1.23 09/15/19 07:04 APTT 26.9 SEC (23.5-35.8) 09/04/19 05:20 Sodium 139.2 mmol/L (137-145) 09/05/19 04:33 Potassium 4.1 mmol/L (3.6-5.0) 09/05/19 04:33 Chloride 105 mmol/L (98-107) 09/05/19 04:33 Carbon Dioxide 27 mmol/L (22-30) 09/05/19 04:33 Anion Gap 7 (5-19) 09/05/19 04:33 BUN 17 mg/dL (7-20) 09/05/19 04:33 Creatinine 0.81 mg/dL (0.52-1.25) 09/05/19 04:33 Est GFR ( Amer) > 60 (>60) 09/05/19 04:33 Est GFR (MDRD) Non-Af > 60 (>60) 09/05/19 04:33 Glucose 122 mg/dL (75-110) H 09/05/19 04:33 POC Glucose 344 mg/dL (70-110) H 09/15/19 11:16 Hemoglobin A1c % 7.4 % (4.7-6.0) H 09/05/19 04:33 Calcium 9.3 mg/dL (8.4-10.2) 09/05/19 04:33 Total Bilirubin 1.1 mg/dL (0.2-1.3) 09/04/19 05:20 Direct Bilirubin 0.2 mg/dL (0.0-0.4) 09/04/19 05:20 Neonat Total Bilirubin Not Reportable 09/04/19 05:20 Neonat Direct Bilirubin Not Reportable 09/04/19 05:20 Neonat Indirect Bili Not Reportable 09/04/19 05:20 AST 14 U/L (17-59) L 09/04/19 05:20 ALT 12 U/L (<50) 09/04/19 05:20 Alkaline Phosphatase 91 U/L (38-126) 09/04/19 05:20 Troponin I < 0.012 ng/mL 09/04/19 05:20 Total Protein 6.7 g/dL (6.3-8.2) 09/04/19 05:20 Albumin 3.8 g/dL (3.5-5.0) 09/04/19 05:20 Triglycerides 173 mg/dL (<150) H 09/05/19 04:33 Cholesterol 183.37 mg/dL (0-200) 09/05/19 04:33 LDL Cholesterol Direct 131 mg/dL (<100) H 09/05/19 04:33 VLDL Cholesterol 34.6 mg/dL (10-31) H 09/05/19 04:33 HDL Cholesterol 32 mg/dL (>40) L 09/05/19 04:33 Urine Color YELLOW 09/12/19 14:10 Urine Appearance SLIGHTLY-CLOUDY 09/12/19 14:10 Urine pH 5.0 (5.0-9.0) 09/12/19 14:10 Ur Specific Garrett 1.038 09/12/19 14:10 Urine Protein 30 mg/dL (NEGATIVE) H 09/12/19 14:10 Urine Glucose (UA) >=500 mg/dL (NEGATIVE) H 09/12/19 14:10 Urine Ketones TRACE mg/dL (NEGATIVE) H 09/12/19 14:10 Urine Blood SMALL (NEGATIVE) H 09/12/19 14:10 Urine Nitrite NEGATIVE (NEGATIVE) 09/12/19 14:10 Urine Bilirubin NEGATIVE (NEGATIVE) 09/12/19 14:10 Urine Urobilinogen 2.0 mg/dL (<2.0) H 09/12/19 14:10 Ur Leukocyte Esterase NEGATIVE (NEGATIVE) 09/12/19 14:10 Urine WBC (Auto) 4 /HPF 09/12/19 14:10 Urine RBC (Auto) 1 /HPF 09/12/19 14:10 Squamous Epi Cells Auto <1 /HPF 09/12/19 14:10 Granular Casts (Auto) 1 /LPF 09/12/19 14:10 Urine Mucus (Auto) RARE /LPF 09/12/19 14:10 Urine Ascorbic Acid NEGATIVE (NEGATIVE) 09/12/19 14:10 09/04/19 05:20 Troponin I < 0.012 Impressions: Head MRI 09/04/19 00:00 IMPRESSION: Positive study for acute nonhemorrhagic punctate lacunar infarct left thalamus. Chronic small vessel ischemic change elsewhere in the hemispheric white matter. EVIDENCE OF ACUTE STROKE: YES. Chest X-Ray 09/04/19 05:11 IMPRESSION: Clear lungs. Head CT 09/04/19 05:11 IMPRESSION: Atrophy and chronic small vessel ischemic changes with no acute intracranial abnormality. Hand X-Ray 09/04/19 05:12 IMPRESSION: No acute osseous findings. Carotid Doppler Study 09/04/19 08:34 IMPRESSION: 1. Right ICA with elevated velocities compatible with 50 - 69% stenosis. 2. No hemodynamically significant stenosis within the left ICA. Plan Time Spent: Greater than 30 Minutes Stroke Is this a Stroke Patient?: Yes Stroke Pt being discharged on Anti-thrombolytic therapy?: Yes Stroke Pt being discharged on Anti-coagulation therapy?: Yes Stroke Pt being discharged on Statins?: Yes Acute Heart Failure - Is this a Heart Failure Patient?: No
[2019-09-15 16:47] VITALS: BP 125/83
== END 2019-09-15 19:50 | disposition home or self-care (01) | DRG 65 ==
LOC: ER 03:45 → EH 07:59 → INTOOBSV 07:59 → 3W 11:41 → OBSVTOIN 16:25
PROVIDERS: ADMIT Internal Medicine; ATTEND Internal Medicine
DX: I63.81 Other cerebral infarction due to occlusion or stenosis of small artery (principal); G81.91 Hemiplegia, unspecified affecting right dominant side; I48.19 Other persistent atrial fibrillation; E78.5 Hyperlipidemia, unspecified; I10 Essential (primary) hypertension; I25.10 Atherosclerotic heart disease of native coronary artery without angina pectoris; F17.210 Nicotine dependence, cigarettes, uncomplicated; R29.6 Repeated falls; E11.65 Type 2 diabetes mellitus with hyperglycemia; K59.03 Drug induced constipation; T40.4X5A Adverse effect of other synthetic narcotics, initial encounter; F32.9 Major depressive disorder, single episode, unspecified; Z60.2 Problems related to living alone; E78.00 Pure hypercholesterolemia, unspecified; Z91.19 Patient's noncompliance with other medical treatment and regimen; Z79.899 Other long term (current) drug therapy; Z79.01 Long term (current) use of anticoagulants; Z79.82 Long term (current) use of aspirin; Z79.4 Long term (current) use of insulin; Z91.14 Patient's other noncompliance with medication regimen; Z95.5 Presence of coronary angioplasty implant and graft
CPT/HCPCS: 36415; 70450; 70551; 71045; 80048; 80053; 80061; 81001; 82962; 83036; 84484; 85025; 85027; 85610; 85730; 93005; 93010; 93880; 99285; G0378; J1644; J1650; J1815; J3490

== ENCOUNTER 2019-09-19 16:01 | Inpatient (IN) | payer MEDICARE ==
--- NOTE | 2019-09-19 16:40 | ER Document Report ---
ED General - General Chief Complaint: Urinary Retention Stated Complaint: WEAKNESS Time Seen by Provider: 09/19/19 16:39 Mode of Arrival: Medic Information source: Patient, Relative - 2 daughters, recent [facility] records, [facility] Personnel, Outside Facility Records Cannot obtain history due to: Other TRAVEL OUTSIDE OF THE [place] IN LAST 30 DAYS: No - HPI Notes: EMS report picked up from patient's home where he was with some family. They had said he had not been eating or drinking well and had been cognitively different than baseline in the last few days. EMS achieved IV access and started a liter of LR for a blood pressure of 90, they said he seemed to "perked up" and his blood pressure was improving over 100 systolic. Blood pressures were high at 500. He remained nonfocal in route. They say family is coming. They did say patient was mentioning to them that he does not "trust them" EMS said they did not know if he meant family or who he was talking about. Patient tells me that he does not live with any family members he says he cannot talk very loud because he "cannot talk. He says he is not in any abdominal pain or other pain. He says he is not been getting out of bed. When asked why he is coming to the hospital he says "for help" in regard to where or what kind of place he is at right now he says a hospital. He says he has no idea or shrugs his shoulders rather regarding what year it is. He says no when I ask his it 1982. But he says he does not want to give up a gas because he does not know what year it is. Was hospitalized 1125 2018 presenting with right-sided weakness, and found to have lacunar infarct in the left thalamus, 50 to 69% stenosis right ICA, atrial fibrillation but refused an echocardiogram. Per last discharge summary has a history of refusing offered interventions for example physical therapy or medications to control his atrial fibrillation or an echocardiogram to assess his heart after his stroke. There is no mention of if he would give any rationale for these decisions. Currently in the emergency department I have not yet spoken to family but will get a better history and collateral information as well as talk to the patient myself regarding his current capacity for specifically medical decision making, or any history of periods of what sounds like incapacity or capacity to make medical decisions per family. Currently just need more information. Daughter says his phonation has been more difficulty here even before the stroke since his dentures broke. Patient says that he is okay to come to the hospital because he feels much better after insertion of the Le and says he understands that admission will be needed because he will need some close watching of his electrolytes and kidneys now that we have unobstructed the urine. Also said that we can start treatment twice a day for the yeast infection on his foreskin that was stuck together and preventing him from being able to pee. He also says, and agrees that he refused some interventions and care that was offered last time and says that he understands he has the right to refuse or request medical interventions by his providers, but that he has to be able to give reasoning to them so we know he is capable of making decisions that are regarding his healthcare. He agrees that he does not want interventions that will not necessarily improve his overall functioning. He says he enjoys living with his ex-'s other ex- Andrae who is about 20 years younger than himself. Daughter says Andrae has had not mentioned any falls or any other changes but had told him he was not eating well and not getting up much. Also daughters Maria T, lives in [place] and other daughter lives in [place]. Their mom eloped and moved to [place] a few years ago. Maria T says their mom left Mr. Estrada when they were younger and it was definitely hard for him at that time she remarried Andrae who was about 20 years younger, but then few years ago Sean's ex- and Maria T's mom actually moved Sean into live with Andrae and herself because he was starting to have some difficulty taking care of himself. Maria T says Sean and Andrae actually get along quite well and can have continue to live together despite their ex- moving away to [place]. Because he says that she sees him sometimes infrequently maybe every few months lately. \\ - Related Data Allergies/Adverse Reactions: No Known Allergies Allergy (Verified 09/19/19 19:04) Past Medical History - General Information source: Patient Cannot obtain history due to: Other - Is fairly uncooperative and avoids answering questions until spent time significantly with him and explained situation to him.takes some time to extract history and preferences from Mr. Fall but he is able to give varied and appropriate responses he jokes intermittently - Social History Smoking Status: Former Smoker Lives with: Friend - Ex-'s ex- Andrae. Family History: Reviewed & Not Pertinent Patient has suicidal ideation: No Patient has homicidal ideation: No - Past Medical History Cardiac Medical History: Reports: Hx Coronary Artery Disease - STENTS X2 1999, Hx Hypercholesterolemia, Hx Hypertension Denies: Hx Heart Attack Pulmonary Medical History: Reports: Hx Bronchitis, Hx Pneumonia Denies: Hx Asthma, Hx COPD Neurological Medical History: Denies: Hx Cerebrovascular Accident, Hx Seizures Endocrine Medical History: Reports: Hx Diabetes Mellitus Type 2 GI Medical History: Denies: Hx Hepatitis, Hx Hiatal Hernia, Hx Ulcer Musculoskeletal Medical History: Denies Hx Arthritis Psychiatric Medical History: Denies: Hx Depression Infectious Medical History: Denies: Hx Hepatitis Past Surgical History: Reports: Hx Open Heart Surgery - STENTS PLACED 1999, Hx Orthopedic Surgery. Denies: Hx Pacemaker - Immunizations Immunizations up to date: No Hx Diphtheria, Pertussis, Tetanus Vaccination: Yes Review of Systems - Review of Systems -: Yes ROS unobtainable due to patient's medical condition - 2/2 PT'S predominant refusal and avoidance of answering many initi ?s Constitutional: No symptoms reported EENT: No symptoms reported Cardiovascular: No symptoms reported Respiratory: No symptoms reported Gastrointestinal: No symptoms reported Genitourinary: No symptoms reported Male Genitourinary: No symptoms reported Musculoskeletal: No symptoms reported Skin: No symptoms reported Hematologic/Lymphatic: No symptoms reported Neurological/Psychological: No symptoms reported Physical Exam - Vital signs Vitals: Pulse Ox 97 09/19/19 16:09 Interpretation: Normal. No: Hypoxic, Febrile Notes: Blood pressure was on arrival after about 6 750 cc of LR per EMS systolic 111. Heart rate was 80s. - Notes Notes: Frail-appearing has some wasting centrally, has some scattered small ecchymoses abdominal consistent with subcu shots and recent hospitalization. No evidence of any pressure breakdown on extremities heels or back or buttock. Uncircumcised, small penis with inability to easily retract foreskin. Copious cheeselike discharge, scattered erythematous papules no vesicle lesions. Ultima tely wants foreskin very very very slowly over an hour retracted meatus is intact. - General General appearance: Other - Preoccupation I think there In distress: None Notes: Initially was attempting to physically fight with the nurse while we were retracting his foreskin secondary to pain ultimately was cooperative once realize we are trying to help him. - HEENT Head: Normocephalic, Atraumatic. No: Abrasions, Ecchymosis Eyes: No: Pale conjunctiva, Scleral icterus Conjunctiva: No: Injected, Purulent discharge Extraocular movements intact: Yes Eyelashes: Normal Pupils: PERRL Mouth/Lips: Other - edentulous, lips have no lesions but crusting film internally. No tongue lesions dry mucous membrane Mucous membranes: Dry, Other - Appears would benefit from mouth hygiene and care cleaning - Respiratory Respiratory status: No respiratory distress. No: Respiratory distress, Cyanosis, Depressed respirations, Retractions, Tachypnea Chest status: No: Tender, Chest mass, Ecchymosis Breath sounds: No: Decreased air movement - Cardiovascular Rhythm: Irregularly irregular. No: Bradycardia Pulses: Normal: Radial, Dorsalis pedis Normal capillary refill: Yes - Abdominal Inspection: Normal, Other Distension: Distended bladder, Other - Once Le finally placed drainage around 200 cc clear dark urine Tenderness: Nontender Organomegaly: No organomegaly - Genitourinary Inspection: Other - Foreskin unable to be retracted over the glans. Red scattered papules without vesicles consistent with candidal infection cottage cheeselike discharge splotchy edema of foreskin consistent to balantophitis. No: Blood at meatus Scrotum: Normal - Back Back: No: Deformity/step-off, Scars, Wounds - Extremities General upper extremity: Other - No evidence of skin breakdown, warm well perfused, no peripheral edema pitting edema. No rashes. Does have some muscle atrophy diffusely. - Neurological Cognition: Inattentive - Says he has no idea what year it is. Says no when asked if it is like 94. But refuses to make guess Kevin Coma Scale Eye Opening: Spontaneous Evergreen Coma Scale Verbal: None - Difficult to hear as has no dentures soft voice does answer some questions appropriately, says hospital that he is in the hospital when asked what type of facility this is. Also jokes that he enjoys pretty much sleeping and having fine when trying to ascertain his goals of care and what he enjoys. Evergreen Coma Scale Motor: Obeys Commands Evergreen Coma Scale Total: 11 Speech: No: Dysarthria, Expressive aphasia, Receptive aphasia Cranial nerves: No: Facial palsy Cerebellar coordination: Other - Did not assess gait or finger-nose heel thomason. Additional motor exam normals: Equal front clerk. No: Pronator drift - Resist gravity holds up both bilateral extremity lower at hip and upper for a few at shoulder seconds to command. - Psychological Associated symptoms: Irritable. No: Tangential speech - Intermittently cooperative, then ordinary and evades questions with jokes. - Skin Skin Color: negative: Pale, Erythema, Maxim, Dusky, Petechiae Skin Turgor: Loose Skin irregularity: negative: Abscess, Decubitus ulcer, Rash Location of irregularity: Other - Penis foreskin consistent with candidal balanitis and phimosis. Course - Re-evaluation Re-evalutation: 09/19/19 22:52 Labs reviewed, sodium elevated acutely from the other day now 169 acutely very hyper both euvolemic and dehydrated BUN/creatinine ratio very elevated. Glucose 500. With each worsen from prior GFR now substantially down. Finished that 1 L of LR that was started by EMS then once Le in place ordered 500 cc more LR. Ordered and tach candidal cream for foreskin. Admitted to telemetry by overnight hospitalist. See on EKGs comparison to prior about a week ago QTC that was borderline prolonged at that time is is slightly more so prolonged was 492 now 497. I see after patient was out of my care while doing chart Dr. Reynoso is already ordered magnesium level to labs. 09/19/19 22:57 09/19/19 22:57 09/19/19 23:00 Also spent significant time with patient and family to try to assess healthcare decision making capacity which I think patient displays at this moment in time, at least for a few specific decisions regarding hospitalization, and understanding he says his ability to refuse medical interventions if he does communicate his rationale either at the time or before hand and it does not endanger others. Even if it might decrease the duration of his life he does still have ability to make decisions that might do that either opting for deferring treatments that are possible or and appropriate if he is able to show he understands the options and asks about other options for example - Vital Signs Vital signs: Temp Pulse Resp BP Pulse Ox 98.7 F 92 21 H 94/65 L 99 09/19/19 20:36 09/19/19 16:12 09/19/19 22:01 09/19/19 22:01 09/19/19 18:01 - Laboratory Result Diagrams: 09/19/19 17:25 09/19/19 17:25 Laboratory results interpreted by me: 09/19/19 09/19/19 09/19/19 17:25 17:25 17:25 WBC 12.7 H MCV 100 H D Lymph % (Auto) 11.0 L Absolute Neuts (auto) 9.6 H Absolute Monos (auto) 1.6 H PT 20.8 H Sodium 161.2 H Chloride 118 H Anion Gap 21 H BUN 154 H Creatinine 3.92 H Est GFR ( Amer) 18 L Est GFR (MDRD) Non-Af 15 L Glucose 500 H* Lactic Acid (Sepsis) Total Bilirubin 1.6 H Direct Bilirubin 1.0 H Alkaline Phosphatase 147 H Creatine Kinase Urine Protein Urine Glucose (UA) Urine Blood Urine Urobilinogen 09/19/19 09/19/19 09/19/19 17:25 17:25 19:30 WBC MCV Lymph % (Auto) Absolute Neuts (auto) Absolute Monos (auto) PT Sodium Chloride Anion Gap BUN Creatinine Est GFR ( Amer) Est GFR (MDRD) Non-Af Glucose Lactic Acid (Sepsis) 3.4 H 2.4 H Total Bilirubin Direct Bilirubin Alkaline Phosphatase Creatine Kinase 50 L Urine Protein Urine Glucose (UA) Urine Blood Urine Urobilinogen 09/19/19 19:30 WBC MCV Lymph % (Auto) Absolute Neuts (auto) Absolute Monos (auto) PT Sodium Chloride Anion Gap BUN Creatinine Est GFR ( Amer) Est GFR (MDRD) Non-Af Glucose Lactic Acid (Sepsis) Total Bilirubin Direct Bilirubin Alkaline Phosphatase Creatine Kinase Urine Protein 30 H Urine Glucose (UA) >=500 H Urine Blood SMALL H Urine Urobilinogen 4.0 H - EKG Interpretation by Me Additional EKG results interpreted by me: 09/19/19 22:54 EKG shows sinus rate 89. No ST elevations depressions Critical Care Note - Critical Care Note Total time excluding time spent on procedures (mins): 120 - Spent in room directly assisting to other team members, RNs, carefully, safely displacing foreskin for Le placement. Discharge - Discharge Clinical Impression: Acute hypernatremia, Acute kidney injury, Candidal balano-posthitis, At risk for prolonged QT interval syndrome Condition: Poor Disposition: ADMITTED INPATIENT Admitting Provider: Angeles (Hospitalist) Unit Admitted: Telemetry
--- NOTE | 2019-09-19 17:44 | EKG REPORT ---
SEVERITY:- ABNORMAL ECG - SINUS RHYTHM ATRIAL PREMATURE COMPLEX ABNORMAL T, CONSIDER ISCHEMIA, ANT-LAT LEADS BORDERLINE PROLONGED QT INTERVAL CONSIDER OLD TRUE POST NE : Confirmed by: Chucky France MD 19-Sep-2019 17:44:08
[2019-09-19 17:52] LABS: VENOUS BLOOD PCO2 44.6 mmHg (35-63); VENOUS BLOOD PH 7.33 (7.30-7.42)
[2019-09-19 17:53] LABS: ABSOLUTE BASOPHILS # (AUTO) 0.1 10^3/uL (0.0-0.2); ABSOLUTE LYMPHOCYTES (AUTO) 1.4 10^3/uL (0.5-4.7); ABSOLUTE MONOCYTES (AUTO) 1.6 10^3/uL (0.1-1.4); ABSOLUTE NEUT (AUTO) 9.6 10^3/uL (1.7-8.2); BASOPHILS % (AUTO) 0.5 % (0-2); HEMATOCRIT 50.8 % (37.9-51.0); HEMOGLOBIN 16.7 g/dL (13.5-17.0); MEAN CORPUSCULAR HEMOGLOBIN 32.9 pg (27.0-33.4); MEAN CORPUSCULAR HGB CONC 32.9 g/dL (32.0-36.0); PLATELET COUNT 202 10^3/uL (150-450); RED BLOOD COUNT 5.07 10^6/uL (4.35-5.55); RED CELL DISTRIBUTION WIDTH 13.8 % (11.5-14.0); SEGMENTED NEUTROPHILS % (AUTO) 75.5 % (42-78); TOTAL CELLS COUNTED % (AUTO) 100 %; WHITE BLOOD COUNT 12.7 10^3/uL (4.0-10.5)
[2019-09-19 18:02] LABS: MEAN CORPUSCULAR VOLUME 100 fl (80-97)
[2019-09-19 18:05] LABS: INTERNATIONAL RATION (INR) 1.77; PROTHROMBIN TIME 20.8 SEC (11.4-15.4)
[2019-09-19 18:13] LABS: ALBUMIN 3.9 g/dL (3.5-5.0); ALKALINE PHOSPHATASE 147 U/L (38-126); ASPARTATE AMINO TRANSFERASE 49 U/L (17-59); BILIRUBIN,TOTAL 1.6 mg/dL (0.2-1.3); POTASSIUM 4.2 mmol/L (3.6-5.0); TOTAL PROTEIN 7.4 g/dL (6.3-8.2)
[2019-09-19 18:18] LABS: CARBON DIOXIDE 22 mmol/L (22-30); CHLORIDE 118 mmol/L (98-107)
[2019-09-19 18:40] LABS: ANION GAP 21 (5-19); BLOOD UREA NITROGEN 154 mg/dL (7-20)
[2019-09-19 18:41] LABS: GLUCOSE 500 mg/dL (75-110)
[2019-09-19 19:55] LABS: APPEARANCE,URINE SLIGHTLY-CLOUDY; BILIRUBIN,URINE NEGATIVE (NEGATIVE); COLOR,URINE AMBER; GLUCOSE, URINE >=500 mg/dL (NEGATIVE); KETONES,URINE NEGATIVE (NEGATIVE); LEUKOCYTE ESTERASE,URINE NEGATIVE (NEGATIVE); NITRITE,URINE NEGATIVE (NEGATIVE); PROTEIN,URINE 30 mg/dL (NEGATIVE)
[2019-09-19] MEDS ORDERED: RINGERS SOLUTION,LACTATED 500 ML IV ONE (20:19)
[2019-09-19] MEDS: CLOTRIMAZOLE 1% CREAM 15 GM TP SCH (20:19)
--- NOTE | 2019-09-19 20:53 | RADIOLOGY REPORT (SQ) ---
EXAM DESCRIPTION: [facility]: XR CHEST 1 VIEW CLINICAL HISTORY: 74 years Male, change in mental status COMPARISON: 05/25/2014 FINDINGS: Lungs are clear, with no focal infiltrate, pneumothorax, or pleural effusion. Mediastinum is within normal limits for this positioning. Bony structures are unremarkable. IMPRESSION: 1. No acute pulmonary findings.
[2019-09-19] MEDS ORDERED: PROMETHAZINE HCL INJ 25 MG/1 ML VIAL IV PRN (21:10)
[2019-09-19] MEDS ORDERED: MAG HYDROX/AL HYDROX/SIMETH SUSP 30 ML UDCUP PO PRN (21:10)
[2019-09-19] MEDS ORDERED: 1/2 NORMAL SALINE 1,000 ML IV PRN (21:10)
[2019-09-19] MEDS ORDERED: MAGNESIUM HYDROXIDE SUSP 30 ML UDCUP PO PRN (21:10)
[2019-09-19] MEDS ORDERED: NALBUPHINE HCL INJ 10 MG/1 ML AMPULE IV PRN ×3 (21:18→21:27)
[2019-09-19] MEDS ORDERED: ACETAMINOPHEN 325 MG TABLET PO PRN (21:18)
[2019-09-19] MEDS ORDERED: INSULIN REG, HUMAN 100 UNIT/ML 3 ML VIAL (PYX) SUBCUT PRN (21:18)
[2019-09-19 21:19] LABS: CREATINE KINASE MB 0.83 ng/mL (<4.55)
[2019-09-19] MEDS ORDERED: NICOTINE 21 MG/24 HR PATCH.TD24 TD PRN (21:24)
[2019-09-19 21:26] LABS: TROPONIN I 0.08 ng/mL
[2019-09-19] MEDS ORDERED: DILTIAZEM HCL INJ 25 MG/5 ML VIAL IV ONE (21:30)
[2019-09-19] MEDS: HEPARIN SOD (PORCINE) 5,000 UNIT/ML 1 ML VIAL SUBCUT SCH (21:37)
[2019-09-19] MEDS ORDERED: LEVALBUTEROL HCL NEB 0.63 MG/3 ML AMPUL NEB PRN (21:50)
[2019-09-19] MEDS ORDERED: INSULIN REG, HUMAN 100 UNIT/ML 3 ML VIAL (PYX) IV ONE (22:00)
[2019-09-19] MEDS: NORMAL SALINE 1000 ML 1,000 ML IV PRN (22:20)
[2019-09-20] MEDS ORDERED: INSULIN REG, HUMAN 100 UNIT/ML 3 ML VIAL (PYX) IV ONE (00:42)
[2019-09-20] MEDS ORDERED: INFLUENZA QUAD (6MOS+) 2019-20 VAC 0.5 ML SYR IM ONE (00:43)
--- NOTE | 2019-09-20 00:47 | PDOC H&P ---
History of Present Illness Admission Date/PCP: 09/19/19 20:35 FIONA WHITE MD Patient complains of: Lethargy History of Present Illness: JANNET HENAO is a 74 year old male who presented to the emergency room, via EMS, with a 3-day history of lethargy. Patient's family reports that he has been increasingly lethargic over the last 3 days. His lethargy has been associated with poor oral intake of fluids and solids, decreased urinary output and decreased physical activity in that he has not been out of bed for 3 days. Additionally family reports that he has been noncompliant with taking of medications. The patient is uncooperative in answering questions. His family members have not identified any additional accompanying or associated signs and symptoms. He has not had prior similar episodes and they have not identified any aggravating or ameliorating factors for his lethargy. In the emergency room he was found to have a BUN of 154, a creatinine of 3.92, a sodium of 161, acute urinary retention with phimosis, marked hyperglycemia and borderline hypotension. He was started on IV fluids and admitted to the hospital for further evaluation treatment. Past Medical History Cardiac Medical History: Reports: Coronary Artery Disease - STENTS X2 1999, Hyperlipidema, Hypertension Denies: Atrial Fibrillation, Myocardial Infarction Pulmonary Medical History: Reports: Bronchitis, Pneumonia Denies: Asthma, Chronic Obstructive Pulmonary Disease (COPD), Respiratory Failure EENT Medical History: Denies: Cataracts, Ears - Hearing aids Neurological Medical History: Reports: Ischemic CVA Denies: Hemorrhagic CVA, Seizures Endocrine Medical History: Reports: Diabetes Mellitus Type 2 Denies: Diabetes Mellitus Type 1, Hyperthyroidism, Hypothyroidism, Obesity Renal/ Medical History: Denies: Chronic Kidney Disease, Nephrolithiasis Malignancy Medical History: Reports: None GI Medical History: Denies: Cirrhosis, Crohn's Disease, Gastroesophageal Reflux Disease, Hepatitis, Hiatal Hernia, Peptic Ulcer Disease, Ulcerative Colitis Musculoskeltal Medical History: Denies: Arthritis, Gout Skin Medical History: Denies: Eczema, Psoriasis Psychiatric Medical History: Reports: Tobacco Dependency Denies: Alcohol Dependency, Depression, Substance Abuse Traumatic Medical History: Reports: None Hematology: Denies: Anemia, Sickle Cell Disease Infectious Medical History: Reports: None Past Surgical History Past Surgical History: Reports: Cardiac Catheterization, Coronary Stent - X2, Orthopedic Surgery Social History Information Source: Relative Lives with: Family Smoking Status: Current Every Day Smoker Electronic Cigarette use?: No Frequency of Alcohol Use: None Hx Recreational Drug Use: No Drugs: None Hx Prescription Drug Abuse: No - Advance Directive Resuscitation Status: Full Code Surrogate healthcare decision maker:: Latasha Vega Family History Family History: CAD, DM, Hypertension. denies: Malignancy Parental Family History Reviewed: Yes Children Family History Reviewed: No Sibling(s) Family History Reviewed.: Yes Medication/Allergy Home Medications: Aspirin [Adult Low Dose Aspirin EC] 81 mg PO DAILY 09/19/19 Atorvastatin Calcium [Lipitor 80 mg Tablet] 80 mg PO QHS 09/19/19 Insulin Glargine,Hum.rec.anlog [Lantus Insulin 100 Unit/1 ml 10 ml] 10 unit SUBCUT QHS 09/19/19 Metoprolol Succinate [Toprol Xl 25 mg Tab.sr] 25 mg PO Q12 09/19/19 Sertraline HCl [Zoloft 50 mg Tablet] 50 mg PO DAILY 09/19/19 Warfarin Sodium [Coumadin 4 mg Tablet] 4 mg PO QHS 09/19/19 Allergies/Adverse Reactions: No Known Allergies Allergy (Verified 09/19/19 19:04) Review of Systems ROS unobtainable: Due to mental status - Patient is lethargic and not well oriented at the time of admission. He is also noncompliant with answering questions. Physical Exam Vital Signs: Temp Pulse Resp BP Pulse Ox 98.7 F 92 19 103/84 99 09/19/19 20:36 09/19/19 16:12 09/19/19 21:01 09/19/19 21:01 09/19/19 18:01 Intake & Output 09/17/19 09/18/19 09/19/19 23:59 23:59 23:59 Intake Total 500 Balance 500 Weight 75 kg General appearance: PRESENT: no acute distress, other - Poorly cooperative Head exam: ABSENT: atraumatic, normocephalic Eye exam: PRESENT: conjunctiva pink. ABSENT: conjunctival injection, scleral icterus Ear exam: PRESENT: normal external ear exam. ABSENT: bleeding, drainage Mouth exam: PRESENT: dry mucosa, neck supple Neck exam: ABSENT: thyromegaly, tracheal deviation Respiratory exam: PRESENT: decreased breath sounds - Minimally decreased breath sounds throughout all [place], prolonged expiratory phas - Minimal prolongation of expiratory phase throughout all [place], symmetrical, unlabored, wheezes - Mild expiratory wheezes noted Cardiovascular exam: PRESENT: irregular rhythm - Irregularly irregular rate and rhythm, tachycardia. ABSENT: clicks, gallop, rubs Pulses: PRESENT: normal carotid pulses, normal radial pulses Vascular exam: ABSENT: normal capillary refill - Capillary refill is delayed greater than 3 seconds, pallor GI/Abdominal exam: PRESENT: normal bowel sounds, soft Rectal exam: PRESENT: deferred Extremities exam: ABSENT: joint swelling, pedal edema Musculoskeletal exam: ABSENT: deformity, dislocation Neurological exam: PRESENT: alert, other - Uncooperative with evaluation limiting assessment Psychiatric exam: PRESENT: depressed, other - Uncooperative Skin exam: PRESENT: dry, intact, warm. ABSENT: jaundice, rash, urticaria Results Laboratory Results: 09/19/19 17:25 09/19/19 17:25 09/19/19 09/19/19 09/19/19 17:25 17:25 17:25 WBC 12.7 H RBC 5.07 Hgb 16.7 Hct 50.8 MCV 100 H D MCH 32.9 MCHC 32.9 RDW 13.8 Plt Count 202 Seg Neutrophils % 75.5 VBG pH 7.33 VBG pCO2 44.6 VBG HCO3 23.0 VBG Base Excess -3.0 Sodium 161.2 H Potassium 4.2 Chloride 118 H Carbon Dioxide 22 Anion Gap 21 H BUN 154 H Creatinine 3.92 H Est GFR ( Amer) 18 L Glucose 500 H* Calcium 9.0 Total Bilirubin 1.6 H AST 49 Alkaline Phosphatase 147 H Total Protein 7.4 Albumin 3.9 Urine Color Urine Appearance Urine pH Ur Specific [place] Urine Protein Urine Glucose (UA) Urine Ketones Urine Blood Urine Nitrite Ur Leukocyte Esterase Urine WBC (Auto) Urine RBC (Auto) 09/19/19 19:30 WBC RBC Hgb Hct MCV MCH MCHC RDW Plt Count Seg Neutrophils % VBG pH VBG pCO2 VBG HCO3 VBG Base Excess Sodium Potassium Chloride Carbon Dioxide Anion Gap BUN Creatinine Est GFR ( Amer) Glucose Calcium Total Bilirubin AST Alkaline Phosphatase Total Protein Albumin Urine Color LADARIUS Urine Appearance SLIGHTLY-CLOUDY Urine pH 5.0 Ur Specific [place] 1.020 Urine Protein 30 H Urine Glucose (UA) >=500 H Urine Ketones NEGATIVE Urine Blood SMALL H Urine Nitrite NEGATIVE Ur Leukocyte Esterase NEGATIVE Urine WBC (Auto) 1 Urine RBC (Auto) 3 09/19/19 09/19/19 17:25 17:25 Creatine Kinase 50 L CK-MB (CK-2) 0.83 Troponin I 0.080 Impressions: Chest X-Ray 09/19/19 00:00 IMPRESSION: 1. No acute pulmonary findings. Assessment and Plan - Diagnosis (1) Acute kidney injury Is this a current diagnosis for this admission?: Yes (2) Acute hypernatremia Is this a current diagnosis for this admission?: Yes (3) Atrial fibrillation with RVR Is this a current diagnosis for this admission?: Yes (4) Diabetes mellitus type 2 in nonobese Is this a current diagnosis for this admission?: Yes (5) Non compliance w medication regimen Is this a current diagnosis for this admission?: Yes (6) Tobacco dependence Is this a current diagnosis for this admission?: Yes (7) Hyperlipidemia Qualifiers: Hyperlipidemia type: unspecified Qualified Code(s): E78.5 - Hyperlipidemia, unspecified Is this a current diagnosis for this admission?: Yes (8) Depression Qualifiers: Depression Type: unspecified Qualified Code(s): F32.9 - Major depressive disorder, single episode, unspecified Is this a current diagnosis for this admission?: Yes (9) Candidal balano-posthitis Is this a current diagnosis for this admission?: Yes - Plan Summary Summary: Patient is admitted to [facility] and will be observed closely. His hypernatremia will be treated with half-normal saline IV solution with volume given for rehydr ation and treatment of his acute kidney injury. Blood sugar will be controlled with intravenous insulin x1 followed by Accu-Cheks before meals and at bedtime. Patient was placed on a cardiac diet with diabetic restrictions and prerenal restrictions. He will be treated with topical nystatin cream for his phimosis and a Le catheter will be continued to closely monitor his urine output. Nephrology consultation will be obtained with Dr. Arvizu. Patient's blood lites were monitored closely with frequent metabolic profiles as appropriate. His A. fib with RVR will also be treated with IV diltiazem x1 dose with further treatment as required. career services manager consultation will be obtained. Patient will receive Nubain 5 to 10 mg IV every 3 hours as needed for control of pain. He will receive usual supportive and symptomatic treatments in the [facility]. - Time Time Spent with patient: 15-24 minutes Medications reviewed and adjusted accordingly: Yes Anticipated discharge: SNF - Inpatient Certification Based on my medical assessment, after consideration of the patient's com orbidities, presenting symptoms, or acuity I expect that the services needed warrant INPATIENT care.: Yes I certify that my determination is in accordance with my understanding of Medicare's requirements for reasonable and necessary INPATIENT services [42 CFR 412.3e].: Yes Medical Necessity: Significant Comorbidiites Make Outpatient Treatment Too Risky, Need Close Monitoring Due to Risk of Patient Decompensation, Need For IV Fluids, Need For Continuous Telemetry Monitoring, Risk of Complication if Not Cared For in Hospital, Risk of Diagnosis Which Will Require Inpatient Eval/Care/Monitoring
[2019-09-20 01:24] LABS: CREATINE KINASE MB 1.16 ng/mL (<4.55); TROPONIN I 0.077 ng/mL
[2019-09-20] MEDS ORDERED: DIGOXIN INJ 0.5 MG/2 ML AMPULE IV ONE ×2 (01:38→11:00)
[2019-09-20] MEDS ORDERED: MEROPENEM 1 GM VIAL IV ONE (01:49)
[2019-09-20] MEDS ORDERED: MEROPENEM 500 MG VIAL IV SCH (02:00)
[2019-09-20] MEDS ORDERED: MEROPENEM 1 GM VIAL IV PRN (02:01)
[2019-09-20] MEDS ORDERED: MEROPENEM 1 GM in NORMAL SALINE 50 ML IV ONE (02:15)
[2019-09-20] MEDS ORDERED: MEROPENEM 1 GM VIAL ONE (02:33)
[2019-09-20] MEDS ORDERED: MEROPENEM 1 GM in NORMAL SALINE 100 ML IV ONE (02:45)
[2019-09-20] MEDS: NORMAL SALINE 1000 ML 1,000 ML IV PRN ×2 (04:09→08:18)
[2019-09-20] MEDS: PANTOPRAZOLE SODIUM 40 MG TABLET.DR PO SCH (05:21)
[2019-09-20] MEDS: HEPARIN SOD (PORCINE) 5,000 UNIT/ML 1 ML VIAL SUBCUT SCH ×3 (05:21→21:47)
[2019-09-20 06:52] LABS: HEMATOCRIT 45.5 % (37.9-51.0); HEMOGLOBIN 15.4 g/dL (13.5-17.0); MEAN CORPUSCULAR HEMOGLOBIN 33.5 pg (27.0-33.4); MEAN CORPUSCULAR HGB CONC 33.9 g/dL (32.0-36.0); MEAN CORPUSCULAR VOLUME 99 fl (80-97); PLATELET COUNT 167 10^3/uL (150-450); RED CELL DISTRIBUTION WIDTH 13.1 % (11.5-14.0); VENOUS BLOOD PH 7.39 (7.30-7.42); WHITE BLOOD COUNT 9.9 10^3/uL (4.0-10.5)
[2019-09-20 07:19] LABS: ANION GAP 14 (5-19); CALCIUM 8.7 mg/dL (8.4-10.2); CARBON DIOXIDE 24 mmol/L (22-30); CHLORIDE 127 mmol/L (98-107); CHOLESTEROL 126.17 mg/dL (0-200); GLUCOSE 108 mg/dL (75-110); POTASSIUM 3.6 mmol/L (3.6-5.0); TRIGLYCERIDES 275 mg/dL (<150)
[2019-09-20 07:28] LABS: CREATINE KINASE MB 1.78 ng/mL (<4.55); TROPONIN I 0.092 ng/mL
[2019-09-20 07:30] LABS: BLOOD UREA NITROGEN 140 mg/dL (7-20); DIRECT LDL 74 mg/dL (<100)
[2019-09-20 09:21] LABS: FREE T3 3.12 pg/mL (2.77-5.27); FREE T4 (FREE THYROXINE) 1.85 ng/dL (0.78-2.19)
[2019-09-20] MEDS: DOCUSATE SODIUM 100 MG CAPSULE PO SCH ×2 (11:14→17:39)
[2019-09-20] MEDS: CLOTRIMAZOLE 1% CREAM 15 GM TP SCH ×2 (11:14→17:39)
--- NOTE | 2019-09-20 12:13 | EKG REPORT ---
SEVERITY:- ABNORMAL ECG - ATRIAL FIBRILLATION A-RATE 319 LOW VOLTAGE IN FRONTAL LEADS NONSPECIFIC REPOL ABNORMALITY, DIFFUSE LEADS EARLY TRANSITION NEED TO CONSIDER OLD TRUE POST [place]. : Confirmed by: Chucky France MD 20-Sep-2019 12:12:40
[2019-09-20] MEDS: 1/2 NORMAL SALINE 1,000 ML IV PRN ×3 (12:37→23:27)
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
[2019-09-20 17:44] LABS: ANION GAP 12 (5-19); CALCIUM 8.7 mg/dL (8.4-10.2); CARBON DIOXIDE 22 mmol/L (22-30); CHLORIDE 127 mmol/L (98-107); GLUCOSE 212 mg/dL (75-110); POTASSIUM 4.3 mmol/L (3.6-5.0)
[2019-09-20 18:17] LABS: BLOOD UREA NITROGEN 125 mg/dL (7-20)
--- NOTE | 2019-09-20 20:24 | PDOC CONSULTATION ---
Consultation Consult Date: 09/20/19 Provider Consulted: JONATHAN FRYE Consult reason:: I was asked to see the patient due to acute renal failure. History of Present Illness Admission Date/PCP: 09/19/19 20:35 FIONA WHITE MD History of Present Illness: JANNET HENAO is a 74 year old male with history of recent CVA, coronary artery disease, hypertension, atrial fibrillation and diabetes mellitus type 2 who was admitted yesterday because of lethargy. Patient is a very poor historian and is pleasantly confused so most of the history is obtained from records from the emergency room and admitting physician. The patient was brought to the emergency room via EMS. The family reports that the patient has been increasingly lethargic for the past 3 days. He also has very poor oral intake including fluids and solids. He has not been out of bed for 3 days. There was also report of compliance with medications. Initial evaluation in the emergency room showed hypotension with blood pressure as low as 80/36. He was also tachycardic with heart rate 3. Previous records revealed normal kidney function and during last hospitalization on September 05 he had a BUN of 17, creatinine of 0.81 with normal EGFR of greater than 60. Patient was then started to be given IV fluids initially with LR via the EMS and is currently at 0.9 normal saline running at 300 mL an hour. When I saw the patient today all he wants is to have some cigarettes. He states that he has been drinking and eating at home. He denies any chest pains, diarrhea, nausea or vomiting. He denies shortness of breath. He denies problem with urination including decreased urine output nor microhematuria. He also de nies any known history of kidney disease. Past Medical History Cardiac Medical History: Reports: Coronary Artery Disease - STENTS X2 1999, Hyperlipidemia, Hypertension-primary Pulmonary Medical History: Reports: Bronchitis, Pneumonia Neurological Medical History: Reports: Ischemic CVA Endocrine Medical History: Reports: Diabetes Mellitus Type 2 Psychiatric Medical History: Reports: Tobacco Dependency Past Surgical History Past Surgical History: Reports: Cardiac Catheterization, Coronary Stent - X2, Orthopedic Surgery Social History Information Source: [facility] Records Lives with: Family Smoking Status: Current Every Day Smoker Cigarettes Packs Per Day: 1 Electronic Cigarette use?: No Frequency of Alcohol Use: None Hx Recreational Drug Use: No Drugs: None Hx Prescription Drug Abuse: No - Advance Directive Resuscitation Status: Full Code Family History Family History: CAD, DM, Hypertension Parental Family History Reviewed: Yes Children Family History Reviewed: Unknown Sibling(s) Family History Reviewed.: Yes Medication/Allergy Home Medications: Aspirin [Adult Low Dose Aspirin EC] 81 mg PO DAILY 09/19/19 Atorvastatin Calcium [Lipitor 80 mg Tablet] 80 mg PO QHS 09/19/19 Insulin Glargine,Hum.rec.anlog [Lantus Insulin 100 Unit/1 ml 10 ml] 10 unit SUBCUT QHS 09/19/19 Metoprolol Succinate [Toprol Xl 25 mg Tab.sr] 25 mg PO Q12 09/19/19 Sertraline HCl [Zoloft 50 mg Tablet] 50 mg PO DAILY 09/19/19 Warfarin Sodium [Coumadin 4 mg Tablet] 4 mg PO QHS 09/19/19 Allergies/Adverse Reactions: No Known Allergies Allergy (Verified 09/19/19 19:04) Review of Systems All systems: reviewed and no additional remarkable complaints except as stated Review of Systems: Constitutional: ABSENT: chills, fatigue, fever(s), headache(s), weight gain, weight loss Eyes: ABSENT: visual disturbances Ears: ABSENT: hearing changes Cardiovascular: ABSENT: chest pain, dyspnea on exertion, edema, orthropnea, palpitations Respiratory: ABSENT: cough, dyspnea, hemoptysis Gastrointestinal: ABSENT: abdominal pain, constipation, diarrhea, hematemesis, hematochezia, nausea, vomiting Genitourinary: ABSENT: dysuria, hematuria Musculoskeletal: ABSENT: joint swelling Integumentary: ABSENT: rash, wounds Neurological: ABSENT: abnormal gait, abnormal speech, confusion, dizziness, focal weakness, numbness, syncope Psychiatric: ABSENT: anxiety, depression Endocrine: ABSENT: cold intolerance, heat intolerance, polydipsia, polyuria Hematologic/Lymphatic: ABSENT: easy bleeding, easy bruising, lymphadenopathy Physical Exam Vital Signs: Temp Pulse Resp BP Pulse Ox 97.5 F 123 H 16 94/73 L 99 09/20/19 08:01 09/20/19 08:01 09/20/19 08:01 09/20/19 08:01 09/20/19 08:01 Intake & Output 09/19/19 09/20/19 09/21/19 06:59 06:59 06:59 Intake Total 1500 1000 Output Total 150 Balance 1350 1000 Weight 75 kg Exam: General appearance: No acute distress, cooperative, well-developed, well- nourished Head exam: PRESENT: atraumatic, normocephalic Eye exam: PRESENT: Conjunctiva [place], EOMI, PERRLA. ABSENT: conjunctival injection, scleral icterus Mouth exam: PRESENT: moist, neck supple, tongue midline Neck exam: PRESENT: full ROM. ABSENT: carotid bruit, JVD, lymphadenopathy, thyromegaly Respiratory exam: PRESENT: clear to auscultation bilaterally. ABSENT: rales, rh onchi, stridor, wheezes Cardiovascular exam: PRESENT: Irregularly irregular, +S1, +S2. ABSENT: systolic murmur Pulses: PRESENT: normal radial pulses, normal dorsalis pedis pulses GI/Abdominal exam: PRESENT: normal bowel sounds, soft. ABSENT: guarding, mass, tenderness Rectal exam: Deferred Extremities exam: PRESENT: full ROM. ABSENT: calf tenderness, pedal edema Musculoskeletal: PRESENT: full ROM. ABSENT: deformity Neurological exam: PRESENT: alert, Awake, Oriented to person is he can tell me his name, Oriented to place as he knows he is in the hospital, but not to time as he thinks it is 1920 and tells me he is only 39 years old, reflexes normal, CN II-XII grossly intact. ABSENT: motor sensory deficit Psychiatric exam: PRESENT: appropriate affect, normal mood. ABSENT: homicidal ideation, suicidal ideation Skin exam: PRESENT: intact, dry, warm. ABSENT: rash Results Laboratory Results: 09/20/19 06:35 09/20/19 06:35 09/19/19 09/19/19 09/19/19 17:25 17:25 17:25 WBC 12.7 H RBC 5.07 Hgb 16.7 Hct 50.8 MCV 100 H D MCH 32.9 MCHC 32.9 RDW 13.8 Plt Count 202 Seg Neutrophils % 75.5 VBG pH 7.33 VBG pCO2 44.6 VBG HCO3 23.0 VBG Base Excess -3.0 Sodium 161.2 H Potassium 4.2 Chloride 118 H Carbon Dioxide 22 Anion Gap 21 H BUN 154 H Creatinine 3.92 H Est GFR ( Amer) 18 L Glucose 500 H* Lactic Acid Calcium 9.0 Magnesium Total Bilirubin 1.6 H AST 49 Alkaline Phosphatase 147 H Total Protein 7.4 Albumin 3.9 Triglycerides Cholesterol LDL Cholesterol Direct VLDL Cholesterol HDL Cholesterol TSH Free T4 Free T3 pg/mL Urine Color Urine Appearance Urine pH Ur Specific [place] Urine Protein Urine Glucose (UA) Urine Ketones Urine Blood Urine Nitrite Ur Leukocyte Esterase Urine WBC (Auto) Urine RBC (Auto) 09/19/19 09/20/19 09/20/19 19:30 02:36 06:35 WBC 9.9 RBC 4.60 Hgb 15.4 Hct 45.5 MCV 99 H MCH 33.5 H MCHC 33.9 RDW 13.1 Plt Count 167 Seg Neutrophils % VBG pH VBG pCO2 VBG HCO3 VBG Base Excess Sodium Potassium Chloride Carbon Dioxide Anion Gap BUN Creatinine Est GFR ( Amer) Glucose Lactic Acid 4.6 H Calcium Magnesium Total Bilirubin AST Alkaline Phosphatase Total Protein Albumin Triglycerides Cholesterol LDL Cholesterol Direct VLDL Cholesterol HDL Cholesterol TSH Free T4 Free T3 pg/mL Urine Color LADARIUS Urine Appearance SLIGHTLY-CLOUDY Urine pH 5.0 Ur Specific [place] 1.020 Urine Protein 30 H Urine Glucose (UA) >=500 H Urine Ketones NEGATIVE Urine Blood SMALL H Urine Nitrite NEGATIVE Ur Leukocyte Esterase NEGATIVE Urine WBC (Auto) 1 Urine RBC (Auto) 3 09/20/19 09/20/19 09/20/19 06:35 06:35 06:35 WBC RBC Hgb Hct MCV MCH MCHC RDW Plt Count Seg Neutrophils % VBG pH VBG pCO2 VBG HCO3 VBG Base Excess Sodium 165.2 H Potassium 3.6 Chloride 127 H Carbon Dioxide 24 Anion Gap 14 BUN 140 H Creatinine 3.20 H Est GFR ( Amer) 23 L Glucose 108 Lactic Acid 1.8 Calcium 8.7 Magnesium 3.8 H Total Bilirubin AST Alkaline Phosphatase Total Protein Albumin Triglycerides 275 H Cholesterol 126.17 LDL Cholesterol Direct 74 VLDL Cholesterol 55.0 H HDL Cholesterol 24 L TSH 0.45 L Free T4 Free T3 pg/mL Urine Color Urine Appearance Urine pH Ur Specific [place] Urine Protein Urine Glucose (UA) Urine Ketones Urine Blood Urine Nitrite Ur Leukocyte Esterase Urine WBC (Auto) Urine RBC (Auto) 09/20/19 09/20/19 06:35 06:35 WBC RBC Hgb Hct MCV MCH MCHC RDW Plt Count Seg Neutrophils % VBG pH 7.39 VBG pCO2 41.0 VBG HCO3 24.0 VBG Base Excess -1.0 Sodium Potassium Chloride Carbon Dioxide Anion Gap BUN Creatinine Est GFR ( Amer) Glucose Lactic Acid Calcium Magnesium Total Bilirubin AST Alkaline Phosphatase Total Protein Albumin Triglycerides Cholesterol LDL Cholesterol Direct VLDL Cholesterol HDL Cholesterol TSH Free T4 1.85 Free T3 pg/mL 3.12 Urine Color Urine Appearance Urine pH Ur Specific [place] Urine Protein Urine Glucose (UA) Urine Ketones Urine Blood Urine Nitrite Ur Leukocyte Esterase Urine WBC (Auto) Urine RBC (Auto) 09/19/19 09/19/19 09/20/19 17:25 17:25 00:27 Creatine Kinase 50 L 69 CK-MB (CK-2) 0.83 Troponin I 0.080 09/20/19 09/20/19 09/20/19 00:27 06:35 06:35 Creatine Kinase 121 CK-MB (CK-2) 1.16 1.78 Troponin I 0.077 0.092 Impressions: Chest X-Ray 09/19/19 00:00 IMPRESSION: 1. No acute pulmonary findings. Assessment & Plan - Diagnosis (1) Acute kidney injury Is this a current diagnosis for this admission?: Yes Plan: This is secondary to prerenal azotemia secondary to severe dehydration due to poor oral intake. Continue aggressive volume resuscitation. There is no current indication for any renal replacement therapy. Avoid nephrotoxic medications. Monitor kidney function and electrolytes. (2) Acute hypernatremia Is this a current diagnosis for this admission?: Yes Plan: This is again secondary to severe dehydration. I will change his IV fluids from 0.9-0.45 normal saline to run at 250 mL and hour. (3) Atrial fibrillation Is this a current diagnosis for this admission?: Yes Plan: Initially with rapid ventricular response but is now currently with controlled rate. (4) Candidal balano-posthitis Is this a current diagnosis for this admission?: Yes Plan: This is reported by the initial examining physician in the emergency room. Defer treatment to the hospitalist service. (5) Diabetes mellitus type 2 in nonobese Is this a current diagnosis for this admission?: Yes Plan: Suboptimally controlled. Defer management to the hospitalist. - Notes Notes: Thank you very much for this consultation. - Time Time Spent: 50 to 70 Minutes
[2019-09-21] MEDS: 1/2 NORMAL SALINE 1,000 ML IV PRN ×4 (03:33→21:52)
[2019-09-21] MEDS: HEPARIN SOD (PORCINE) 5,000 UNIT/ML 1 ML VIAL SUBCUT SCH (05:18)
[2019-09-21] MEDS: PANTOPRAZOLE SODIUM 40 MG TABLET.DR PO SCH (05:18)
--- NOTE | 2019-09-21 06:32 | ADVANCED CARE ---
- Diagnosis (1) Acute kidney injury Diagnosis Current: Yes (2) Acute hypernatremia Diagnosis Current: Yes (3) Atrial fibrillation with RVR Diagnosis Current: Yes (4) Diabetes mellitus type 2 in nonobese Diagnosis Current: Yes (5) Non compliance w medication regimen Diagnosis Current: Yes (6) Tobacco dependence Diagnosis Current: Yes (7) Hyperlipidemia Diagnosis Current: Yes (8) Candidal balano-posthitis Diagnosis Current: Yes Attendance: Discussion initiated at the bedside with the patient's daughter present. She reports that she is the power of regulatory attorney. Resuscitation Status: Full Code Discussion: We reviewed the patient's history including his recent hospitalization and current decline. His history of noncompliance is a big factor. The patient lives with his daughter's stepfather. Compliance is an issue. We reviewed the patient's severely abnormal laboratory studies. We reviewed his very poor prognosis. We also reviewed the fact that these types of behaviors often indicate that the patient no longer wants aggressive treatment. The patient's daughter will discuss with her sister. She has agreed to palliative care consult. Hospice with placement at a facility would be appropriate at this time. Care Planning Goals: Obtain palliative care consult. Consider changing CODE STATUS to DNR short-term and consider hospice care. Document(s) Completed: None Time Spent: 25 minutes
[2019-09-21 06:47] LABS: HEMATOCRIT 40.5 % (37.9-51.0); HEMOGLOBIN 13.6 g/dL (13.5-17.0); MEAN CORPUSCULAR HEMOGLOBIN 33.2 pg (27.0-33.4); MEAN CORPUSCULAR HGB CONC 33.5 g/dL (32.0-36.0); MEAN CORPUSCULAR VOLUME 99 fl (80-97); PLATELET COUNT 128 10^3/uL (150-450); RED BLOOD COUNT 4.09 10^6/uL (4.35-5.55); RED CELL DISTRIBUTION WIDTH 13.3 % (11.5-14.0); WHITE BLOOD COUNT 8.3 10^3/uL (4.0-10.5)
[2019-09-21 07:05] LABS: ANION GAP 10 (5-19); CALCIUM 8.4 mg/dL (8.4-10.2); CARBON DIOXIDE 23 mmol/L (22-30); CHLORIDE 125 mmol/L (98-107); GLUCOSE 173 mg/dL (75-110); POTASSIUM 3.6 mmol/L (3.6-5.0)
[2019-09-21 07:24] LABS: BLOOD UREA NITROGEN 100 mg/dL (7-20)
[2019-09-21] MEDS ORDERED: MEROPENEM 500 MG in NORMAL SALINE 50 ML IV SCH (08:00)
--- NOTE | 2019-09-21 09:34 | PDOC PROGRESS REPORT ---
Subjective Progress Note for:: 09/21/19 Subjective:: Patient is doing fine. He is still pleasantly confused. The daughter at bedside states that the patient is at baseline sarcastic but never as altered as this time. He is making urine around 1555 mL for the past 24 hours with IV fluids. He does not verbalize any new complaints at this time. Reason For Visit: ACUTE RENAL FAILURE, HYPERNATREMIA, ACUTE URINARY Physical Exam Vital Signs: Temp Pulse Resp BP Pulse Ox 97.5 F 107 H 18 119/95 H 98 09/21/19 08:14 09/21/19 08:14 09/21/19 08:14 09/21/19 08:14 09/21/19 08:14 Intake & Output 09/20/19 09/21/19 09/22/19 06:59 06:59 06:59 Intake Total 1500 5496 Output Total 150 1555 Balance 1350 3941 Weight 75 kg 78.1 kg Exam: General appearance: PRESENT: no acute distress, cooperative, well-developed, well-nourished Head exam: PRESENT: atraumatic, normocephalic Eye exam: PRESENT: conjunctiva slightly pale, PERRLA. ABSENT: scleral icterus Neck exam: ABSENT: JVD Respiratory exam: PRESENT: Normal breath sounds. ABSENT: crackles, rales, rhonchi, unlabored, wheezes Cardiovascular exam: PRESENT: Irregularly irregular rate rhythm -+S1, +S2. ABSENT: diastolic murmur, systolic murmur GI/Abdominal exam: PRESENT: normal bowel sounds, soft. ABSENT: guarding, mass, tenderness Extremities exam: ABSENT: No edema Neurological exam: PRESENT: alert, awake, oriented to person, place and time. Skin exam: PRESENT: dry, warm, Results Laboratory Results: 09/21/19 06:28 09/21/19 06:28 09/20/19 09/21/19 09/21/19 17:09 06:28 06:28 WBC 8.3 RBC 4.09 L Hgb 13.6 Hct 40.5 MCV 99 H MCH 33.2 MCHC 33.5 RDW 13.3 Plt Count 128 L Sodium 160.7 H 157.8 H Potassium 4.3 3.6 Chloride 127 H 125 H Carbon Dioxide 22 23 Anion Gap 12 10 BUN 125 H 100 H D Creatinine 2.79 H 2.38 H Est GFR ( Amer) 27 L 33 L Glucose 212 H 173 H Calcium 8.7 8.4 Magnesium 3.3 H 09/19/19 09/19/19 09/20/19 17:25 17:25 00:27 Creatine Kinase 50 L 69 CK-MB (CK-2) 0.83 Troponin I 0.080 09/20/19 09/20/19 09/20/19 00:27 06:35 06:35 Creatine Kinase 121 CK-MB (CK-2) 1.16 1.78 Troponin I 0.077 0.092 Impressions: Chest X-Ray 09/19/19 00:00 IMPRESSION: 1. No acute pulmonary findings. Assessment & Plan - Diagnosis (1) Acute kidney injury Is this a current diagnosis for this admission?: Yes Plan: Secondary to prerenal azotemia due to severe dehydration. Currently now improving. Patient on 0.5 normal saline. Continue the same with current rate. No need for any renal replacement therapy. I expect kidney function to continue to get better. Encourage more oral fluids and solid intakes. (2) Acute hypernatremia Is this a current diagnosis for this admission?: Yes Plan: Improving with current hypotonic IV fluid hydration. Encourage more water intake. (3) Atrial fibrillation Is this a current diagnosis for this admission?: Yes (4) Candidal balano-posthitis Is this a current diagnosis for this admission?: Yes (5) Diabetes mellitus type 2 in nonobese Is this a current diagnosis for this admission?: Yes - Notes Notes: I updated patient's daughter at bedside. Discussed with Dr. Shankar. - Time Time with patient: 15-25 minutes
[2019-09-21] MEDS: ASPIRIN 81 MG TABLET, ENT COATED PO SCH (09:45)
[2019-09-21] MEDS: DOCUSATE SODIUM 100 MG CAPSULE PO SCH ×2 (09:45→17:27)
[2019-09-21] MEDS: SERTRALINE HCL 50 MG TABLET PO SCH (09:45)
[2019-09-21] MEDS: CLOTRIMAZOLE 1% CREAM 15 GM TP SCH ×2 (09:47→17:27)
[2019-09-21] MEDS ORDERED: METOPROLOL SUCCINATE 25 MG TAB.SR.24H PO SCH ×2 (10:00→22:00)
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
[2019-09-21] MEDS: METOPROLOL SUCCINATE 50 MG TAB.SR.24H PO SCH (21:50)
[2019-09-21] MEDS: ATORVASTATIN CALCIUM 80 MG TABLET PO SCH (21:50)
[2019-09-21] MEDS: WARFARIN SODIUM 4 MG TABLET PO SCH (22:06)
[2019-09-22] MEDS: 1/2 NORMAL SALINE 1,000 ML IV PRN ×2 (06:39→14:47)
[2019-09-22 07:11] LABS: INTERNATIONAL RATION (INR) 1.25; PROTHROMBIN TIME 15.8 SEC (11.4-15.4)
[2019-09-22 07:31] LABS: ANION GAP 6 (5-19); BLOOD UREA NITROGEN 66 mg/dL (7-20); CALCIUM 8.3 mg/dL (8.4-10.2); CARBON DIOXIDE 23 mmol/L (22-30); CHLORIDE 121 mmol/L (98-107); DIGOXIN 1.07 ng/mL (0.8-2.0); GLUCOSE 109 mg/dL (75-110); POTASSIUM 3.7 mmol/L (3.6-5.0)
[2019-09-22 07:41] LABS: HEMATOCRIT 34.2 % (37.9-51.0); HEMOGLOBIN 11.8 g/dL (13.5-17.0); MEAN CORPUSCULAR HEMOGLOBIN 33.5 pg (27.0-33.4); MEAN CORPUSCULAR HGB CONC 34.4 g/dL (32.0-36.0); MEAN CORPUSCULAR VOLUME 97 fl (80-97); PLATELET COUNT 122 10^3/uL (150-450); RED BLOOD COUNT 3.52 10^6/uL (4.35-5.55); RED CELL DISTRIBUTION WIDTH 12.9 % (11.5-14.0); WHITE BLOOD COUNT 7.1 10^3/uL (4.0-10.5)
[2019-09-22] MEDS: ASPIRIN 81 MG TABLET, ENT COATED PO SCH (09:19)
[2019-09-22] MEDS: METOPROLOL SUCCINATE 50 MG TAB.SR.24H PO SCH ×2 (09:19→21:23)
[2019-09-22] MEDS: NICOTINE 21 MG/24 HR PATCH.TD24 TD SCH (09:19)
[2019-09-22] MEDS: PANTOPRAZOLE SODIUM 40 MG TABLET.DR PO SCH (09:19)
[2019-09-22] MEDS: DOCUSATE SODIUM 100 MG CAPSULE PO SCH ×2 (09:19→17:26)
[2019-09-22] MEDS: SERTRALINE HCL 50 MG TABLET PO SCH (09:19)
[2019-09-22] MEDS: CLOTRIMAZOLE 1% CREAM 15 GM TP SCH ×2 (10:40→17:26)
[2019-09-22 14:55] LABS: HEMATOCRIT 34.3 % (37.9-51.0); HEMOGLOBIN 11.7 g/dL (13.5-17.0); MEAN CORPUSCULAR HEMOGLOBIN 33.6 pg (27.0-33.4); MEAN CORPUSCULAR HGB CONC 34.1 g/dL (32.0-36.0); MEAN CORPUSCULAR VOLUME 99 fl (80-97); PLATELET COUNT 103 10^3/uL (150-450); RED BLOOD COUNT 3.48 10^6/uL (4.35-5.55); RED CELL DISTRIBUTION WIDTH 12.9 % (11.5-14.0); WHITE BLOOD COUNT 7.1 10^3/uL (4.0-10.5)
[2019-09-22 15:19] LABS: APPEARANCE,URINE TURBID; BILIRUBIN,URINE NEGATIVE (NEGATIVE); GLUCOSE, URINE 50 mg/dL (NEGATIVE); KETONES,URINE NEGATIVE (NEGATIVE); LEUKOCYTE ESTERASE,URINE MODERATE (NEGATIVE); NITRITE,URINE NEGATIVE (NEGATIVE); PROTEIN,URINE 30 mg/dL (NEGATIVE); URINE SPECIFIC GRAVITY 1.018
[2019-09-22 15:20] LABS: COLOR,URINE YELLOW
--- NOTE | 2019-09-22 19:32 | PDOC PROGRESS REPORT ---
Subjective Progress Note for:: 09/22/19 Subjective:: Today is the first day that the patient has not been pleasant during the encounter. When I entered the room he asked "what do you want". I told him I was his physician. He stated that he was not in the hospital and that he had released himself. See further discussion below Reason For Visit: ACUTE RENAL FAILURE, HYPERNATREMIA, ACUTE URINARY Physical Exam Vital Signs: Temp Pulse Resp BP Pulse Ox 98.5 F 61 18 128/49 H 97 09/22/19 16:15 09/22/19 16:15 09/22/19 16:15 09/22/19 16:15 09/22/19 16:15 Intake & Output 09/21/19 09/22/19 09/23/19 06:59 06:59 06:59 Intake Total 5496 3124 1780 Output Total 1555 1225 600 Balance 3941 1899 1180 Weight 78.1 kg 81.8 kg General appearance: PRESENT: mild distress Head exam: PRESENT: atraumatic, normocephalic Ear exam: PRESENT: normal external ear exam. ABSENT: bleeding, drainage Teeth exam: PRESENT: edentulous Respiratory exam: PRESENT: symmetrical, unlabored, other - Unable to complete hands on exam. ABSENT: accessory muscle use, tachypnea Neurological exam: PRESENT: alert, awake, oriented to person. ABSENT: oriented to place, oriented to time, oriented to situation Psychiatric exam: PRESENT: agitated, appropriate affect - Affect consistent with his agitation. He was quite belligerent during his most recent hospital stay. Results Laboratory Results: 09/22/19 14:36 09/22/19 06:43 09/22/19 09/22/19 09/22/19 06:43 06:43 14:36 WBC 7.1 7.1 RBC 3.52 L 3.48 L Hgb 11.8 L 11.7 L Hct 34.2 L 34.3 L MCV 97 99 H MCH 33.5 H 33.6 H MCHC 34.4 34.1 RDW 12.9 12.9 Plt Count 122 L 103 L Sodium 149.8 H Potassium 3.7 Chloride 121 H Carbon Dioxide 23 Anion Gap 6 BUN 66 H Creatinine 1.80 H Est GFR ( Amer) 45 L Glucose 109 Calcium 8.3 L Magnesium 2.9 H Urine Color Urine Appearance Urine pH Ur Specific [place] Urine Protein Urine Glucose (UA) Urine Ketones Urine Blood Urine Nitrite Ur Leukocyte Esterase Urine WBC (Auto) Urine RBC (Auto) 09/22/19 14:55 WBC RBC Hgb Hct MCV MCH MCHC RDW Plt Count Sodium Potassium Chloride Carbon Dioxide Anion Gap BUN Creatinine Est GFR ( Amer) Glucose Calcium Magnesium Urine Color YELLOW Urine Appearance TURBID Urine pH 5.0 Ur Specific [place] 1.018 Urine Protein 30 H Urine Glucose (UA) 50 H Urine Ketones NEGATIVE Urine Blood MODERATE H Urine Nitrite NEGATIVE Ur Leukocyte Esterase MODERATE H Urine WBC (Auto) 19 Urine RBC (Auto) 9 09/19/19 09/19/19 09/20/19 17:25 17:25 00:27 Creatine Kinase 50 L 69 CK-MB (CK-2) 0.83 Troponin I 0.080 09/20/19 09/20/19 09/20/19 00:27 06:35 06:35 Creatine Kinase 121 CK-MB (CK-2) 1.16 1.78 Troponin I 0.077 0.092 Impressions: Chest X-Ray 09/19/19 00:00 IMPRESSION: 1. No acute pulmonary findings. Assessment and Plan - Diagnosis (1) Acute kidney injury Is this a current diagnosis for this admission?: Yes Plan: 09/20/2019-appreciate nephrology input. Continue fluids. Currently will receive half-normal saline for hydration and hypernatremia. Continue to monitor lab studies. 09/21/2019-appreciate nephrology's continued input. Sodium is down to 157, BUN is 100 and creatinine is 2.38. Continue half-normal saline. 09/22/2019-I did review the laboratory studies. The serum sodium is down to 149 with his creatinine at 1.8 and BUN of 66. We will continue the half-normal saline at this time. Laboratory studies tomorrow. As the patient's numbers improve he appears to be returning to his psychological baseline which tends to be obstreperous, uncooperative and potentially agitated. (2) Acute hypernatremia Is this a current diagnosis for this admission?: Yes Plan: 09/20/2019-utilize half-normal saline and monitor electrolytes 09/21/2019-sodium down to 157. Continue current management. 09/22/2019-sodium is now 149.8. (3) Atrial fibrillation with RVR Is this a current diagnosis for this admission?: Yes Plan: 09/20/2019-resume metoprolol. Intermittent digoxin. Must be mindful of kidney failure and digoxin levels. No documented history of atrial fibrillation. This is acute onset but whether persistent or paroxysmal unknown at this time. 09/21/2019-I will increase the metoprolol. I will check a digoxin level. We will utilize intermittent digoxin if the level is not supratherapeutic. Digoxin level is ordered for the morning. 09/22/2019-heart rate with excellent control. Digoxin level is therapeutic. Continue current regimen. (4) Diabetes mellitus type 2 in nonobese Is this a current diagnosis for this admission?: Yes Plan: 09/20/[id number] and sliding scale coverage. Diabetic diet. 09/21/2019-still with elevated Accu-Cheks. Continue sliding scale coverage. Appetite is quite poor at this time. 09/22/2019-his Accu-Cheks seem to be coming down slightly. We will continue to monitor. In the past the patient has been noncompliant and resistant to taking his medications. Will assess daily. (5) Non compliance w medication regimen Is this a current diagnosis for this admission?: Yes Plan: 09/20/2019-consistent with recent hospitalization as well. Occasionally refuses medications. During last hospitalization patient in fact became violent. He was striking out at nurses physically and attempting to spit on them. Noncompliance appears to be a chronic issue. 09/21/2019-behavior as an inpatient is much better than previous day. No change in treatment plan. 09/22/2019-this is a significant issue. The patient was noncompliant during his previous hospitalization. It clearly appears that when he went home he did not take any medications and in fact did not drink much fluids. This certainly will be problematic for any meaningful recovery and might support a change to palliative if not hospice care. (6) Tobacco dependence Is this a current diagnosis for this admission?: Yes Plan: 09/20/2019-nicotine patch if signs of nicotine withdrawal. 09/21/2019-we will schedule his nicotine patch since he was asking for carton of cigarettes today. 09/22/2019-continue nicotine patch and no smoking under any circumstance. (7) Hyperlipidemia Qualifiers: Hyperlipidemia type: unspecified Qualified Code(s): E78.5 - Hyperlipidemia, unspecified Is this a current diagnosis for this admission?: Yes Plan: 09/20/2019-continue atorvastatin 09/21/2019-continue current statin dose. On atorvastatin 80 mg. Total cholesterol still greater than 100. At this point in time no change to medication regimen. 09/22/2019-continue statins (8) Candidal balano-posthitis Is this a current diagnosis for this admission?: Yes Plan: 09/20/2019-topical therapy at this time 09/21/2019-continue antifungal cream. As I cannot identify a source of infection I have stopped the antibiotics as this will contribute to fungal infections especially with underlying diabetes. 09/22/2019 as above - Plan Summary Summary: Patient is admitted to [facility] and will be observed closely. His hypernatremia will be treated with half-normal saline IV solution with volume given for rehydration and treatment of his acute kidney injury. Blood sugar will be controlled with intravenous insulin x1 followed by Accu-Cheks before meals and at bedtime. Patient was placed on a cardiac diet with diabetic restrictions and prerenal restrictions. He will be treated with topical nystatin cream for his phimosis and a Le catheter will be continued to closely monitor his urine output. Nephrology consultation will be obtained with Dr. Arvizu. Patient's blood lites were monitored closely with frequent metabolic profiles as appropriate. His A. fib with RVR will also be treated with IV diltiazem x1 dose with further treatment as required. clinical services specialist consultation will be obtained. Patient will receive Nubain 5 to 10 mg IV every 3 hours as needed for control of pain. He will receive usual supportive and symptomatic treatments in the [facility]. 09/20/2019-if no focus of infection identified we will discontinue antibiotic therapy. I did have a long discussion with the patient's daughter. Palliative care consult will be ordered. Prognosis is poor. 09/21/2019-spoke with palliative care. Consult today. 09/22/2019-the patient is returning to his previous baseline behavior. He refused to let me examine him today. He certainly would be appropriate for palliative if not hospice care. His pattern of behavior with medication noncompliance certainly would suggest that he does not want to be cared for. Palliative care is meeting with the family. - Time Time Spent with patient: Less than 15 minutes Medications reviewed and adjusted accordingly: Yes
--- NOTE | 2019-09-22 21:10 | PDOC PROGRESS REPORT ---
Subjective Progress Note for:: 09/22/19 Subjective:: Patient was sleeping when I entered the room but he was arousable. He did not verbalize any complaints. He continues to improve please clinically. However his behavior may be the same. He made about 1225 mL of urine for the past 24 hours. Reason For Visit: ACUTE RENAL FAILURE, HYPERNATREMIA, ACUTE URINARY Physical Exam Vital Signs: Temp Pulse Resp BP Pulse Ox 97.8 F 65 18 110/58 L 94 09/22/19 11:31 09/22/19 11:31 09/22/19 11:31 09/22/19 11:31 09/22/19 11:31 Intake & Output 09/21/19 09/22/19 09/23/19 06:59 06:59 06:59 Intake Total 5496 3124 Output Total 1555 1225 Balance 3941 1899 Weight 78.1 kg 81.8 kg Exam: General appearance: PRESENT: no acute distress, cooperative, fairly-developed, f airly-nourished Head exam: PRESENT: atraumatic, normocephalic Eye exam: PRESENT: conjunctiva pink, PERRLA. ABSENT: scleral icterus Neck exam: ABSENT: JVD Respiratory exam: PRESENT: Normal breath sounds. ABSENT: crackles, rales, rhonchi, unlabored, wheezes Cardiovascular exam: PRESENT: Irregular rate rhythm -+S1, +S2. ABSENT: diastolic murmur, systolic murmur GI/Abdominal exam: PRESENT: normal bowel sounds, soft. ABSENT: guarding, mass, tenderness Extremities exam: ABSENT: No edema Neurological exam: PRESENT: Asleep but arousable and answers some questions. Skin exam: PRESENT: dry, warm, Results Laboratory Results: 09/22/19 06:43 09/22/19 06:43 09/22/19 09/22/19 06:43 06:43 WBC 7.1 RBC 3.52 L Hgb 11.8 L Hct 34.2 L MCV 97 MCH 33.5 H MCHC 34.4 RDW 12.9 Plt Count 122 L Sodium 149.8 H Potassium 3.7 Chloride 121 H Carbon Dioxide 23 Anion Gap 6 BUN 66 H Creatinine 1.80 H Est GFR ( Amer) 45 L Glucose 109 Calcium 8.3 L Magnesium 2.9 H 09/19/19 09/19/19 09/20/19 17:25 17:25 00:27 Creatine Kinase 50 L 69 CK-MB (CK-2) 0.83 Troponin I 0.080 09/20/19 09/20/19 09/20/19 00:27 06:35 06:35 Creatine Kinase 121 CK-MB (CK-2) 1.16 1.78 Troponin I 0.077 0.092 Impressions: Chest X-Ray 09/19/19 00:00 IMPRESSION: 1. No acute pulmonary findings. Assessment & Plan - Diagnosis (1) Acute kidney injury Is this a current diagnosis for this admission?: Yes Plan: Secondary to prerenal azotemia due to severe dehydration. Currently now improving. Patient on 0.5 normal saline. Continue the same with current rate. No need for any renal replacement therapy. I expect kidney function to continue to get better. Encourage more oral fluids and solid intakes. (2) Acute hypernatremia Is this a current diagnosis for this admission?: Yes Plan: Improving with current hypotonic IV fluid hydration. Encourage more water intake. (3) Atrial fibrillation Is this a current diagnosis for this admission?: Yes Plan: With controlled ventricular response. (4) Candidal balano-posthitis Is this a current diagnosis for this admission?: Yes (5) Diabetes mellitus type 2 in nonobese Is this a current diagnosis for this admission?: Yes - Notes Notes: No further intervention recommended from nephrology standpoint. With IV hydration patient's kidney function is expected to continue to improve from this point. Agree with palliative care with this patient who's compliance is not so great. We will sign off at this time. Please call us if we can be of further help. - Time Time with patient: 15-25 minutes
[2019-09-22] MEDS: WARFARIN SODIUM 4 MG TABLET PO SCH (21:23)
[2019-09-22] MEDS: ATORVASTATIN CALCIUM 80 MG TABLET PO SCH (21:23)
[2019-09-23] MEDS: 1/2 NORMAL SALINE 1,000 ML IV PRN ×4 (01:00→19:44)
[2019-09-23] MEDS: PANTOPRAZOLE SODIUM 40 MG TABLET.DR PO SCH (06:00)
[2019-09-23 06:02] LABS: INTERNATIONAL RATION (INR) 1.97; PROTHROMBIN TIME 22.7 SEC (11.4-15.4)
[2019-09-23] MEDS: NICOTINE 21 MG/24 HR PATCH.TD24 TD SCH (09:51)
[2019-09-23] MEDS: CLOTRIMAZOLE 1% CREAM 15 GM TP SCH ×2 (09:51→18:11)
[2019-09-23] MEDS: SERTRALINE HCL 50 MG TABLET PO SCH (10:03)
[2019-09-23] MEDS: METOPROLOL SUCCINATE 50 MG TAB.SR.24H PO SCH ×2 (10:03→21:07)
[2019-09-23] MEDS: DOCUSATE SODIUM 100 MG CAPSULE PO SCH ×2 (10:03→18:11)
[2019-09-23] MEDS: ASPIRIN 81 MG TABLET, ENT COATED PO SCH (10:03)
[2019-09-23 10:09] LABS: ANION GAP 6 (5-19); CALCIUM 8.1 mg/dL (8.4-10.2); CARBON DIOXIDE 21 mmol/L (22-30); CHLORIDE 119 mmol/L (98-107); GLUCOSE 109 mg/dL (75-110); POTASSIUM 3.6 mmol/L (3.6-5.0)
[2019-09-23 10:38] LABS: BLOOD UREA NITROGEN 45 mg/dL (7-20)
--- NOTE | 2019-09-23 10:58 | PDOC PROGRESS REPORT ---
Subjective Progress Note for:: 09/23/19 Subjective:: Patient currently denies any pain or shortness of breath. States that he ate yesterday. Reason For Visit: ACUTE RENAL FAILURE, HYPERNATREMIA, ACUTE URINARY Physical Exam Vital Signs: Temp Pulse Resp BP Pulse Ox 98.5 F 68 16 104/59 L 97 09/23/19 04:26 09/23/19 07:00 09/23/19 04:26 09/23/19 04:26 09/23/19 04:26 Intake & Output 09/22/19 09/23/19 09/24/19 06:59 06:59 06:59 Intake Total 3124 2880 1000 Output Total 1225 1350 Balance 1899 1530 1000 Weight 81.8 kg 84.6 kg General appearance: PRESENT: no acute distress, cooperative, thin Neck exam: ABSENT: JVD Respiratory exam: PRESENT: clear to auscultation chivo, unlabored. ABSENT: tachypnea, wheezes Cardiovascular exam: PRESENT: RRR, +S1, +S2. ABSENT: tachycardia GI/Abdominal exam: PRESENT: normal bowel sounds, soft. ABSENT: rebound, rigid, tenderness Neurological exam: PRESENT: alert, awake, oriented to person. ABSENT: oriented to place, oriented to time, oriented to situation Results Laboratory Results: 09/22/19 14:36 09/23/19 05:45 09/22/19 09/22/19 09/23/19 14:36 14:55 05:45 WBC 7.1 RBC 3.48 L Hgb 11.7 L Hct 34.3 L MCV 99 H MCH 33.6 H MCHC 34.1 RDW 12.9 Plt Count 103 L Sodium 146.4 H Potassium 3.6 Chloride 119 H Carbon Dioxide 21 L Anion Gap 6 BUN 45 H D Creatinine 1.52 H Est GFR ( Amer) 55 L Glucose 109 Calcium 8.1 L Urine Color YELLOW Urine Appearance TURBID Urine pH 5.0 Ur Specific [place] 1.018 Urine Protein 30 H Urine Glucose (UA) 50 H Urine Ketones NEGATIVE Urine Blood MODERATE H Urine Nitrite NEGATIVE Ur Leukocyte Esterase MODERATE H Urine WBC (Auto) 19 Urine RBC (Auto) 9 09/19/19 09/19/19 09/20/19 17:25 17:25 00:27 Creatine Kinase 50 L 69 CK-MB (CK-2) 0.83 Troponin I 0.080 09/20/19 09/20/19 09/20/19 00:27 06:35 06:35 Creatine Kinase 121 CK-MB (CK-2) 1.16 1.78 Troponin I 0.077 0.092 Impressions: Chest X-Ray 09/19/19 00:00 IMPRESSION: 1. No acute pulmonary findings. Assessment and Plan - Diagnosis (1) Acute hypernatremia Is this a current diagnosis for this admission?: Yes Plan: 09/20/2019-utilize half-normal saline and monitor electrolytes 09/21/2019-sodium down to 157. Continue current management. 09/22/2019-sodium is now 149.8. 09/23/2019-sodium is 146 today. I will continue with IV rehydration with half- normal saline and increase rate to 150/hour. Patient does not seem to have good p.o. intake and only ate less than 50% of his meals yesterday. I will start on Ensure supplements with meals. (2) Acute kidney injury Is this a current diagnosis for this admission?: Yes Plan: 09/20/2019-appreciate nephrology input. Continue fluids. Currently will receive half-normal saline for hydration and hypernatremia. Continue to monitor lab studies. 09/21/2019-appreciate nephrology's continued input. Sodium is down to 157, BUN is 100 and creatinine is 2.38. Continue half-normal saline. 09/22/2019-I did review the laboratory studies. The serum sodium is down to 149 with his creatinine at 1.8 and BUN of 66. We will continue the half-normal saline at this time. Laboratory studies tomorrow. As the patient's numbers improve he appears to be returning to his psychological baseline which tends to be obstreperous, uncooperative and potentially agitated. 09/23/2019-creatinine is trending down even further to 1.52 today. IV fluids has really helped. Ultimately, patient may be at risk of having future episodes similar to this given his poor oral intake from underlying dementia. Will continue with IV fluids for now and continue to recheck BMPs. (3) Non compliance w medication regimen Is this a current diagnosis for this admission?: Yes Plan: 09/20/2019-consistent with recent hospitalization as well. Occasionally refuses medications. During last hospitalization patient in fact became violent. He was striking out at nurses physically and attempting to spit on them. Noncompliance appears to be a chronic issue. 09/21/2019-behavior as an inpatient is much better than previous day. No change in treatment plan. 09/22/2019-this is a significant issue. The patient was noncompliant during his previous hospitalization. It clearly appears that when he went home he did not take any medications and in fact did not drink much fluids. This certainly will be problematic for any meaningful recovery and might support a change to palliative if not hospice care. (4) Atrial fibrillation with RVR Is this a current diagnosis for this admission?: Yes Plan: 09/20/2019-resume metoprolol. Intermittent digoxin. Must be mindful of kidney failure and digoxin levels. No documented history of atrial fibrillation. This is acute onset but whether persistent or paroxysmal unknown at this time. 09/21/2019-I will increase the metoprolol. I will check a digoxin level. We will utilize intermittent digoxin if the level is not supratherapeutic. Digoxin level is ordered for the morning. 09/22/2019-heart rate with excellent control. Digoxin level is therapeutic. Continue current regimen. 09/23/2019-heart rate remains controlled (5) Diabetes mellitus type 2 in nonobese Is this a current diagnosis for this admission?: Yes Plan: [id number] and sliding scale coverage. Diabetic diet. 09/21/2019-still with elevated Accu-Cheks. Continue sliding scale coverage. Appetite is quite poor at this time. 09/22/2019-his Accu-Cheks seem to be coming down slightly. We will continue to monitor. In the past the patient has been noncompliant and resistant to taking his medications. Will assess daily. 09/23/2019-blood sugars acceptably controlled at this time. Maintain on sliding scale insulin and Accu-Cheks. (6) Tobacco dependence Is this a current diagnosis for this admission?: Yes Plan: 09/20/2019-nicotine patch if signs of nicotine withdrawal. 09/21/2019-we will schedule his nicotine patch since he was asking for carton of cigarettes today. 09/22/2019-continue nicotine patch and no smoking under any circumstance. (7) Candidal balano-posthitis Is this a current diagnosis for this admission?: Yes Plan: 09/20/2019-topical therapy at this time 09/21/2019-continue antifungal cream. As I cannot identify a source of infection I have stopped the antibiotics as this will contribute to fungal infections especially with underlying diabetes. 09/22/2019 as above - Time Time Spent with patient: Less than 15 minutes
[2019-09-23] MEDS: WARFARIN SODIUM 4 MG TABLET PO SCH (21:07)
[2019-09-23] MEDS: ATORVASTATIN CALCIUM 80 MG TABLET PO SCH (21:07)
[2019-09-24] MEDS: 1/2 NORMAL SALINE 1,000 ML IV PRN ×3 (02:23→18:04)
[2019-09-24] MEDS: PANTOPRAZOLE SODIUM 40 MG TABLET.DR PO SCH (06:20)
[2019-09-24 06:33] LABS: INTERNATIONAL RATION (INR) 4.15
[2019-09-24 06:45] LABS: PROTHROMBIN TIME 41.3 SEC (11.4-15.4)
[2019-09-24 06:46] LABS: ANION GAP 8 (5-19); BLOOD UREA NITROGEN 28 mg/dL (7-20); CALCIUM 7.9 mg/dL (8.4-10.2); CARBON DIOXIDE 19 mmol/L (22-30); CHLORIDE 116 mmol/L (98-107); GLUCOSE 85 mg/dL (75-110); POTASSIUM 3.5 mmol/L (3.6-5.0)
[2019-09-24] MEDS: CLOTRIMAZOLE 1% CREAM 15 GM TP SCH ×2 (11:42→17:21)
[2019-09-24] MEDS: NICOTINE 21 MG/24 HR PATCH.TD24 TD SCH (11:42)
[2019-09-24] MEDS: ASPIRIN 81 MG TABLET, ENT COATED PO SCH (11:42)
[2019-09-24] MEDS: DOCUSATE SODIUM 100 MG CAPSULE PO SCH ×2 (11:42→17:21)
[2019-09-24] MEDS: SERTRALINE HCL 50 MG TABLET PO SCH (11:43)
[2019-09-24] MEDS: METOPROLOL SUCCINATE 50 MG TAB.SR.24H PO SCH ×2 (11:43→21:52)
--- NOTE | 2019-09-24 14:29 | PDOC PROGRESS REPORT ---
Subjective Progress Note for:: 09/24/19 Subjective:: No adverse events overnight. He is been refusing medications intermittently, and apparently is still being intermittently hostile to staff. Reason For Visit: ACUTE RENAL FAILURE, HYPERNATREMIA, ACUTE URINARY Physical Exam Vital Signs: Temp Pulse Resp BP Pulse Ox 97.6 F 118 H 18 133/78 H 96 09/24/19 11:20 09/24/19 11:20 09/24/19 11:20 09/24/19 11:20 09/24/19 11:20 Intake & Output 09/23/19 09/24/19 09/25/19 06:59 06:59 06:59 Intake Total 2880 3098 1180 Output Total 1350 1125 400 Balance 1530 1973 780 Weight 84.6 kg 85.3 kg General appearance: PRESENT: no acute distress, disheveled. ABSENT: cooperative Respiratory exam: PRESENT: clear to auscultation chivo, symmetrical, unlabored. ABSENT: accessory muscle use, chest wall tenderness, crackles, prolonged expiratory phas, rhonchi, tachypnea, wheezes Cardiovascular exam: PRESENT: irregular rhythm, tachycardia Pulses: PRESENT: normal carotid pulses Vascular exam: PRESENT: normal capillary refill GI/Abdominal exam: PRESENT: normal bowel sounds, soft. ABSENT: distended, guarding, rebound, tenderness Extremities exam: ABSENT: clubbing, pedal edema Musculoskeletal exam: PRESENT: normal inspection. ABSENT: deformity Neurological exam: PRESENT: awake, oriented to person, oriented to place, oriented to situation Psychiatric exam: PRESENT: agitated Skin exam: PRESENT: dry, warm Results Laboratory Results: 09/22/19 14:36 09/24/19 06:09 09/24/19 06:09 Sodium 143.0 Potassium 3.5 L Chloride 116 H Carbon Dioxide 19 L Anion Gap 8 BUN 28 H Creatinine 1.34 H Est GFR ( Amer) > 60 Glucose 85 Calcium 7.9 L 09/19/19 09/19/19 09/20/19 17:25 17:25 00:27 Creatine Kinase 50 L 69 CK-MB (CK-2) 0.83 Troponin I 0.080 09/20/19 09/20/19 09/20/19 00:27 06:35 06:35 Creatine Kinase 121 CK-MB (CK-2) 1.16 1.78 Troponin I 0.077 0.092 Impressions: Chest X-Ray 09/19/19 00:00 IMPRESSION: 1. No acute pulmonary findings. Assessment and Plan - Diagnosis (1) Acute hypernatremia Is this a current diagnosis for this admission?: Yes Plan: Resolved (2) Acute kidney injury Is this a current diagnosis for this admission?: Yes Plan: Resolving, creatinine trending down normal (3) Atrial fibrillation Qualifiers: Atrial fibrillation type: unspecified Qualified Code(s): I48.91 - Unsp ecified atrial fibrillation Is this a current diagnosis for this admission?: Yes Plan: He is apparently been taking his Coumadin because his INR is supratherapeutic, were having to hold that for a day or 2. When he was here at his previous spitalization, his heart rate responded very well to the medications, but he has been refusing to take them here (4) Diabetes mellitus type 2 in nonobese Is this a current diagnosis for this admission?: Yes Plan: Blood sugars are fairly well controlled whenever he agrees to take medication - Plan Summary Summary: There have been discussions about hospice with his daughter because the patient persistently refuses to participate in the plan of care - Time Time Spent with patient: 15-24 minutes
[2019-09-24] MEDS: ATORVASTATIN CALCIUM 80 MG TABLET PO SCH (21:52)
[2019-09-25] MEDS: 1/2 NORMAL SALINE 1,000 ML IV PRN ×3 (00:30→22:46)
[2019-09-25 06:12] LABS: HEMOGLOBIN 12.1 g/dL (13.5-17.0); MEAN CORPUSCULAR HEMOGLOBIN 33.2 pg (27.0-33.4); MEAN CORPUSCULAR HGB CONC 34.7 g/dL (32.0-36.0); MEAN CORPUSCULAR VOLUME 96 fl (80-97); PLATELET COUNT 104 10^3/uL (150-450); RED BLOOD COUNT 3.65 10^6/uL (4.35-5.55); RED CELL DISTRIBUTION WIDTH 12.9 % (11.5-14.0); WHITE BLOOD COUNT 12.2 10^3/uL (4.0-10.5)
[2019-09-25] MEDS: PANTOPRAZOLE SODIUM 40 MG TABLET.DR PO SCH (06:36)
[2019-09-25 06:42] LABS: INTERNATIONAL RATION (INR) 5.27; PROTHROMBIN TIME 49.9 SEC (11.4-15.4)
[2019-09-25 09:27] LABS: AMORPHOUS SEDIMENT,URINE TRACE /HPF; APPEARANCE,URINE CLOUDY; BILIRUBIN,URINE NEGATIVE (NEGATIVE); COLOR,URINE YELLOW; GLUCOSE, URINE 50 mg/dL (NEGATIVE); KETONES,URINE 20 mg/dL (NEGATIVE); LEUKOCYTE ESTERASE,URINE NEGATIVE (NEGATIVE); NITRITE,URINE NEGATIVE (NEGATIVE); PROTEIN,URINE 100 mg/dL (NEGATIVE); URINE SPECIFIC GRAVITY 1.015
[2019-09-25] MEDS: SERTRALINE HCL 50 MG TABLET PO SCH (09:52)
[2019-09-25] MEDS: METOPROLOL SUCCINATE 50 MG TAB.SR.24H PO SCH ×2 (09:52→22:50)
[2019-09-25] MEDS: ASPIRIN 81 MG TABLET, ENT COATED PO SCH (10:03)
[2019-09-25] MEDS: DOCUSATE SODIUM 100 MG CAPSULE PO SCH ×2 (10:03→18:06)
[2019-09-25] MEDS: NICOTINE 21 MG/24 HR PATCH.TD24 TD SCH (10:04)
[2019-09-25] MEDS: CLOTRIMAZOLE 1% CREAM 15 GM TP SCH ×2 (13:17→18:06)
--- NOTE | 2019-09-25 15:54 | PDOC PROGRESS REPORT ---
Subjective Progress Note for:: 09/25/19 Subjective:: No adverse events overnight. He naps a lot during the day. Oral intake is not very good. Overall his deficits from his prior stroke just seem to be worse. He does not have any new deficits, just worsening of his old ones. He has been this way apparently since he has been admitted according to his daughter. Reason For Visit: ACUTE RENAL FAILURE, HYPERNATREMIA, ACUTE URINARY Physical Exam Vital Signs: Temp Pulse Resp BP Pulse Ox 97.9 F 90 16 117/63 97 09/25/19 11:02 09/25/19 11:02 09/25/19 11:02 09/25/19 11:02 09/25/19 11:02 Intake & Output 09/24/19 09/25/19 09/26/19 06:59 06:59 06:59 Intake Total 3098 3345 1200 Output Total 1125 1250 300 Balance 1973 2094 900 Weight 85.3 kg 85.4 kg General appearance: PRESENT: no acute distress, disheveled. ABSENT: cooperative Respiratory exam: PRESENT: clear to auscultation chivo, symmetrical, unlabored. ABSENT: accessory muscle use, chest wall tenderness, crackles, prolonged expiratory phas, rhonchi, tachypnea, wheezes Cardiovascular exam: PRESENT: irregular rhythm, tachycardia Pulses: PRESENT: normal carotid pulses Vascular exam: PRESENT: normal capillary refill GI/Abdominal exam: PRESENT: normal bowel sounds, soft. ABSENT: distended, guarding, rebound, tenderness Extremities exam: ABSENT: clubbing, pedal edema Musculoskeletal exam: PRESENT: normal inspection. ABSENT: deformity Neurological exam: PRESENT: awake, oriented to person, dysarthric, left eye is internally rotated, right side is weak. ABSENT: Oriented to place, oriented to situation Psychiatric exam: PRESENT: agitated Skin exam: PRESENT: dry, warm Results Laboratory Results: 09/25/19 05:41 09/24/19 06:09 09/25/19 09/25/19 05:41 09:08 WBC 12.2 H RBC 3.65 L Hgb 12.1 L Hct 35.0 L MCV 96 MCH 33.2 MCHC 34.7 RDW 12.9 Plt Count 104 L Urine Color YELLOW Urine Appearance CLOUDY Urine pH 5.0 Ur Specific [place] 1.015 Urine Protein 100 H Urine Glucose (UA) 50 H Urine Ketones 20 H Urine Blood LARGE H Urine Nitrite NEGATIVE Ur Leukocyte Esterase NEGATIVE Urine WBC (Auto) 5 Urine RBC (Auto) 46 09/19/19 19:30 Blood Blood Culture - Final NO GROWTH IN 5 DAYS 09/19/19 17:25 Blood Blood Culture - Final NO GROWTH IN 5 DAYS 09/19/19 09/19/19 09/20/19 17:25 17:25 00:27 Creatine Kinase 50 L 69 CK-MB (CK-2) 0.83 Troponin I 0.080 09/20/19 09/20/19 09/20/19 00:27 06:35 06:35 Creatine Kinase 121 CK-MB (CK-2) 1.16 1.78 Troponin I 0.077 0.092 Impressions: Chest X-Ray 09/19/19 00:00 IMPRESSION: 1. No acute pulmonary findings. Assessment and Plan - Diagnosis (1) Acute hypernatremia Is this a current diagnosis for this admission?: Yes Plan: Resolved (2) Acute kidney injury Is this a current diagnosis for this admission?: Yes Plan: Essentially resolved, creatinine was near normal (3) Atrial fibrillation Qualifiers: Atrial fibrillation type: unspecified Qualified Code(s): I48.91 - Unspecified atrial fibrillation Is this a current diagnosis for this admission?: Yes Plan: He is apparently been taking his Coumadin because his INR is supratherapeutic, were having to hold that for a day or 2. When he was here at his previous hospitalization, his heart rate responded very well to the medications, but he has been refusing to take them here (4) Diabetes mellitus type 2 in nonobese Is this a current diagnosis for this admission?: Yes Plan: Blood sugars are fairly well controlled whenever he agrees to take medication (5) Hemiparesis affecting right side as late effect of cerebrovascular accident Is this a current diagnosis for this admission?: Yes Plan: This has progressed since his initial stroke presentation - Plan Summary Summary: There have been discussions about hospice with his daughter because the patient persistently refuses to participate in the plan of care. His daughter has agreed to talk to someone from hospice today. - Time Time Spent with patient: 25-34 minutes
[2019-09-25] MEDS: ATORVASTATIN CALCIUM 80 MG TABLET PO SCH (22:50)
[2019-09-26] MEDS: PANTOPRAZOLE SODIUM 40 MG TABLET.DR PO SCH (05:41)
[2019-09-26] MEDS: 1/2 NORMAL SALINE 1,000 ML IV PRN ×2 (05:41→14:00)
[2019-09-26 06:38] LABS: INTERNATIONAL RATION (INR) 4.59; PROTHROMBIN TIME 44.7 SEC (11.4-15.4)
[2019-09-26] MEDS: CLOTRIMAZOLE 1% CREAM 15 GM TP SCH ×2 (10:03→17:33)
[2019-09-26] MEDS: ASPIRIN 81 MG TABLET, ENT COATED PO SCH (10:05)
[2019-09-26] MEDS: METOPROLOL SUCCINATE 50 MG TAB.SR.24H PO SCH ×2 (10:05→21:56)
[2019-09-26] MEDS: NICOTINE 21 MG/24 HR PATCH.TD24 TD SCH (10:06)
[2019-09-26] MEDS: DOCUSATE SODIUM 100 MG CAPSULE PO SCH ×2 (10:06→17:32)
[2019-09-26] MEDS: SERTRALINE HCL 50 MG TABLET PO SCH (10:11)
--- NOTE | 2019-09-26 15:45 | PDOC PROGRESS REPORT ---
Subjective Progress Note for:: 09/26/19 Subjective:: No adverse events overnight. He naps a lot during the day. Oral intake is not very good. Overall his deficits from his prior stroke just seem to be worse. He does not have any new deficits, just worsening of his old ones. He has been this way apparently since he has been admitted according to his daughter. He has had no change in his clinical condition. His daughter wants an MRI of the brain even though she acknowledges it will not change his plan of care. Reason For Visit: ACUTE RENAL FAILURE, HYPERNATREMIA, ACUTE URINARY Physical Exam Vital Signs: Temp Pulse Resp BP Pulse Ox 97.8 F 103 H 17 113/66 94 09/26/19 11:52 09/26/19 14:00 09/26/19 07:01 09/26/19 11:52 09/26/19 11:52 Intake & Output 09/25/19 09/26/19 09/27/19 06:59 06:59 06:59 Intake Total 3345 3400 1100 Output Total 1250 1275 400 Balance 2095 2125 700 Weight 85.4 kg 91.2 kg General appearance: PRESENT: no acute distress, disheveled. ABSENT: cooperative Respiratory exam: PRESENT: clear to auscultation chivo, symmetrical, unlabored. ABSENT: accessory muscle use, chest wall tenderness, crackles, prolonged expiratory phas, rhonchi, tachypnea, wheezes Cardiovascular exam: PRESENT: irregular rhythm, tachycardia Pulses: PRESENT: normal carotid pulses Vascular exam: PRESENT: normal capillary refill GI/Abdominal exam: PRESENT: normal bowel sounds, soft. ABSENT: distended, guarding, rebound, tenderness Extremities exam: ABSENT: clubbing, pedal edema Musculoskeletal exam: PRESENT: normal inspection. ABSENT: deformity Neurological exam: PRESENT: awake, oriented to person, dysarthric, left eye is internally rotated, right side is weak. ABSENT: Oriented to place, oriented to situation Psychiatric exam: PRESENT: agitated Skin exam: PRESENT: dry, warm Results Laboratory Results: 09/25/19 05:41 09/24/19 06:09 09/19/19 09/19/19 09/20/19 17:25 17:25 00:27 Creatine Kinase 50 L 69 CK-MB (CK-2) 0.83 Troponin I 0.080 09/20/19 09/20/19 09/20/19 00:27 06:35 06:35 Creatine Kinase 121 CK-MB (CK-2) 1.16 1.78 Troponin I 0.077 0.092 Impressions: Chest X-Ray 09/19/19 00:00 IMPRESSION: 1. No acute pulmonary findings. Assessment and Plan - Diagnosis (1) Acute hypernatremia Is this a current diagnosis for this admission?: Yes Plan: Resolved (2) Acute kidney injury Is this a current diagnosis for this admission?: Yes Plan: Essentially resolved, creatinine was near normal (3) Atrial fibrillation Qualifiers: Atrial fibrillation type: unspecified Qualified Code(s): I48.91 - Unspecified atrial fibrillation Is this a current diagnosis for this admission?: Yes Plan: He is apparently been taking his Coumadin because his INR is supratherapeutic, were having to hold that for a day or 2. When he was here at his previous hospitalization, his heart rate responded very well to the medications, but he has been refusing to take them here (4) Diabetes mellitus type 2 in nonobese Is this a current diagnosis for this admission?: Yes Plan: Blood sugars are fairly well controlled whenever he agrees to take medication (5) Hemiparesis affecting right side as late effect of cerebrovascular accident Is this a current diagnosis for this admission?: Yes Plan: This has progressed since his initial stroke presentation - Plan Summary Summary: There have been discussions about hospice with his daughter because the patient persistently refuses to participate in the plan of care. His daughter has agreed to talk to someone from hospice today. - Time Time Spent with patient: 15-24 minutes
--- NOTE | 2019-09-26 19:57 | RADIOLOGY REPORT (SQ) ---
EXAM DESCRIPTION: MRI HEAD WITHOUT COMPLETED DATE/TIME: 09/26/2019 7:27 pm REASON FOR STUDY: change in mental status COMPARISON: 09/04/2019 TECHNIQUE: Multiplanar imaging includes non-contrasted T1, T2, FLAIR, and diffusion with ADC map seq uences. Images stored on PACS. LIMITATIONS: None. FINDINGS: ANATOMY: No anomalies. Normal vascular flow voids. Pituitary fossa normal. CSF SPACES: Atrophy induced prominence of ventricles and CSF spaces. CEREBRUM: High signal intensity lesions scattered throughout the white matter on FLAIR imaging with d istribution suggesting micro-vascular ischemic changes. No evidence of hemorrhage, mass, or extraaxi al fluid collection. POSTERIOR FOSSA: No signal alteration. No hemorrhage. No edema, masses or mass effect. Internal deidre tory canals, cerebello-pontine angles, mastoids normal. DIFFUSION IMAGING: Positive for acute or sub-acute infarction in a few 3 mm foci in the subcortical a nterior right frontal lobe. Some residual restricted diffusion is present in the left thalamic infar ct noted on the prior exam. ORBITS: No masses. Globes normal. PARANASAL SINUSES: No fluid levels. Mucosa normal. OTHER: No other significant finding. IMPRESSION: Positive for acute or sub-acute infarction in a few 3 mm foci in the subcortical anterio r right frontal lobe. EVIDENCE OF ACUTE STROKE: YES. RIGHT MONIQUE. TECHNICAL DOCUMENTATION: JOB ID: [id number] [id number] 2010 [employer]- All Rights Reserved Reading location - IP/workstation name: [facility] Shop[facility]eline
[2019-09-26] MEDS: ATORVASTATIN CALCIUM 80 MG TABLET PO SCH (21:56)
[2019-09-27 05:11] LABS: APPEARANCE,URINE CLOUDY; BILIRUBIN,URINE NEGATIVE (NEGATIVE); COLOR,URINE AMBER; GLUCOSE, URINE 50 mg/dL (NEGATIVE); KETONES,URINE 20 mg/dL (NEGATIVE); LEUKOCYTE ESTERASE,URINE MODERATE (NEGATIVE); NITRITE,URINE POSITIVE (NEGATIVE); PROTEIN,URINE 100 mg/dL (NEGATIVE); URINE SPECIFIC GRAVITY 1.019
[2019-09-27] MEDS: PANTOPRAZOLE SODIUM 40 MG TABLET.DR PO SCH (05:57)
[2019-09-27 06:44] LABS: INTERNATIONAL RATION (INR) 5.42
[2019-09-27] MEDS: ASPIRIN 81 MG TABLET, ENT COATED PO SCH ×2 (10:00→10:07)
[2019-09-27] MEDS: SERTRALINE HCL 50 MG TABLET PO SCH ×2 (10:00→10:07)
[2019-09-27] MEDS: NICOTINE 21 MG/24 HR PATCH.TD24 TD SCH (10:00)
[2019-09-27] MEDS: METOPROLOL SUCCINATE 50 MG TAB.SR.24H PO SCH ×3 (10:00→22:31)
[2019-09-27] MEDS: DOCUSATE SODIUM 100 MG CAPSULE PO SCH ×2 (10:00→18:07)
[2019-09-27] MEDS ORDERED: DEXTROSE 50%-WATER 25 GM/50 ML DISP.SYRIN IV PRN ×2 (10:36)
[2019-09-27] MEDS ORDERED: DEXTROSE 40% GEL 15 GM TUBE PO PRN ×2 (10:36)
[2019-09-27] MEDS ORDERED: GLUCAGON,HUMAN RECOMB 1 MG INJ SUBCUT PRN (10:36)
--- NOTE | 2019-09-27 16:07 | PDOC PROGRESS REPORT ---
Subjective Progress Note for:: 09/27/19 Subjective:: No adverse events overnight. He did not do very well swallowing today and so a speech therapy evaluation has been ordered. He sleeps a lot during the day. I spoke with his daughters again today about his MRI results and plan of care going forward. Reason For Visit: ACUTE RENAL FAILURE, HYPERNATREMIA, ACUTE URINARY Physical Exam Vital Signs: Temp Pulse Resp BP Pulse Ox 98.6 F 110 H 17 104/65 99 09/27/19 12:11 09/27/19 14:00 09/27/19 12:11 09/27/19 12:11 09/27/19 12:11 Intake & Output 09/26/19 09/27/19 09/28/19 06:59 06:59 06:59 Intake Total 3400 1850 0 Output Total 1275 1050 125 Balance 2125 800 -125 Weight 91.2 kg 89.6 kg General appearance: PRESENT: no acute distress, disheveled. ABSENT: cooperative Respiratory exam: PRESENT: clear to auscultation chivo, symmetrical, unlabored. ABSENT: accessory muscle use, chest wall tenderness, crackles, prolonged expiratory phas, rhonchi, tachypnea, wheezes Cardiovascular exam: PRESENT: irregular rhythm, tachycardia Pulses: PRESENT: normal carotid pulses Vascular exam: PRESENT: normal capillary refill GI/Abdominal exam: PRESENT: normal bowel sounds, soft. ABSENT: distended, guarding, rebound, tenderness Extremities exam: ABSENT: clubbing, pedal edema Musculoskeletal exam: PRESENT: normal inspection. ABSENT: deformity Neurological exam: PRESENT: awake, oriented to person, dysarthric, left eye is internally rotated, right side is weak. ABSENT: Oriented to place, oriented to situation Skin exam: PRESENT: dry, warm Results Laboratory Results: 09/25/19 05:41 09/24/19 06:09 09/27/19 02:10 Urine Color LADARIUS Urine Appearance CLOUDY Urine pH 5.0 Ur Specific [place] 1.019 Urine Protein 100 H Urine Glucose (UA) 50 H Urine Ketones 20 H Urine Blood MODERATE H Urine Nitrite POSITIVE H Ur Leukocyte Esterase MODERATE H Urine WBC (Auto) 39 Urine RBC (Auto) 11 09/19/19 09/19/19 09/20/19 17:25 17:25 00:27 Creatine Kinase 50 L 69 CK-MB (CK-2) 0.83 Troponin I 0.080 09/20/19 09/20/19 09/20/19 00:27 06:35 06:35 Creatine Kinase 121 CK-MB (CK-2) 1.16 1.78 Troponin I 0.077 0.092 Impressions: Chest X-Ray 09/19/19 00:00 IMPRESSION: 1. No acute pulmonary findings. Head MRI 09/26/19 00:00 IMPRESSION: Positive for acute or sub-acute infarction in a few 3 mm foci in the subcortical anterior right frontal lobe. EVIDENCE OF ACUTE STROKE: YES. RIGHT MONIQUE. Assessment and Plan - Diagnosis (1) Acute hypernatremia Is this a current diagnosis for this admission?: Yes Plan: Resolved (2) Acute kidney injury Is this a current diagnosis for this admission?: Yes Plan: Essentially resolved, creatinine was near normal (3) Atrial fibrillation Qualifiers: Atrial fibrillation type: unspecified Qualified Code(s): I48.91 - Unspecified atrial fibrillation Is this a current diagnosis for this admission?: Yes Plan: His INR is supratherapeutic, were having to hold that, and despite the fact that he is not taking it his INR is not coming down, but we are monitoring him for any bleeding events which he has not had at this point. When he was here at his previous hospitalization, his heart rate responded very well to the medications, but he has been refusing to take them here, with occasional exceptions. (4) Diabetes mellitus type 2 in nonobese Is this a current diagnosis for this admission?: Yes Plan: Blood sugars are fairly well controlled whenever he agrees to take medication (5) Hemiparesis affecting right side as late effect of cerebrovascular accident Is this a current diagnosis for this admission?: Yes Plan: This has progressed since his initial stroke presentation. His repeat MRI showed new stroke in the right frontal lobe. - Plan Summary Summary: Given his new stroke and his declining condition, will been having reevaluated by hospice, because he may be appropriate for inpatient. Also spoke to his daughters about his CODE STATUS, and they are considering it. - Time Time Spent with patient: 25-34 minutes
[2019-09-27] MEDS: ATORVASTATIN CALCIUM 80 MG TABLET PO SCH (22:31)
[2019-09-28] MEDS: PANTOPRAZOLE SODIUM 40 MG TABLET.DR PO SCH (06:02)
[2019-09-28 06:52] LABS: INTERNATIONAL RATION (INR) 5.48; PROTHROMBIN TIME 51.5 SEC (11.4-15.4)
[2019-09-28] MEDS: DOCUSATE SODIUM 100 MG CAPSULE PO SCH ×2 (09:11→17:35)
[2019-09-28] MEDS: METOPROLOL SUCCINATE 50 MG TAB.SR.24H PO SCH ×2 (09:11→22:52)
[2019-09-28] MEDS: NICOTINE 21 MG/24 HR PATCH.TD24 TD SCH (09:11)
[2019-09-28] MEDS: SERTRALINE HCL 50 MG TABLET PO SCH (09:11)
[2019-09-28] MEDS: ASPIRIN 81 MG TABLET, ENT COATED PO SCH (09:11)
[2019-09-28 13:50] LABS: HEMATOCRIT 36.4 % (37.9-51.0); HEMOGLOBIN 12.7 g/dL (13.5-17.0); MEAN CORPUSCULAR HGB CONC 34.9 g/dL (32.0-36.0); MEAN CORPUSCULAR VOLUME 95 fl (80-97); PLATELET COUNT 182 10^3/uL (150-450); RED BLOOD COUNT 3.85 10^6/uL (4.35-5.55); RED CELL DISTRIBUTION WIDTH 13.4 % (11.5-14.0); WHITE BLOOD COUNT 11.3 10^3/uL (4.0-10.5)
[2019-09-28] MEDS: MORPHINE SULFATE 10 MG/ML INJ IV PRN (13:52)
--- NOTE | 2019-09-28 15:39 | PDOC PROGRESS REPORT ---
Subjective Progress Note for:: 09/28/19 Subjective:: No adverse events overnight. He intermittently has some confusion and agitation or anxiety, but he sleeps a lot during the day. He also displays some occasional dyspnea. Reason For Visit: ACUTE RENAL FAILURE, HYPERNATREMIA, ACUTE URINARY Physical Exam Vital Signs: Temp Pulse Resp BP Pulse Ox 97.9 F 121 H 16 110/69 97 09/28/19 12:12 09/28/19 14:00 09/28/19 12:12 09/28/19 12:12 09/28/19 12:12 Intake & Output 09/27/19 09/28/19 09/29/19 06:59 06:59 06:59 Intake Total 1850 0 Output Total 1050 525 Balance 800 -525 Weight 89.6 kg 88.3 kg General appearance: PRESENT: no acute distress, disheveled. ABSENT: cooperative Respiratory exam: PRESENT: clear to auscultation chivo, symmetrical, unlabored. ABSENT: accessory muscle use, chest wall tenderness, crackles, prolonged expira tory phas, rhonchi, tachypnea, wheezes Cardiovascular exam: PRESENT: irregular rhythm, tachycardia Pulses: PRESENT: normal carotid pulses Vascular exam: PRESENT: normal capillary refill GI/Abdominal exam: PRESENT: normal bowel sounds, soft. ABSENT: distended, guarding, rebound, tenderness Extremities exam: ABSENT: clubbing, pedal edema Musculoskeletal exam: PRESENT: normal inspection. ABSENT: deformity Neurological exam: PRESENT: awake, oriented to person, dysarthric, left eye is internally rotated, right side is weak. ABSENT: Oriented to place, oriented to situation Skin exam: PRESENT: dry, warm Results Laboratory Results: 09/28/19 13:30 09/24/19 06:09 09/28/19 13:30 WBC 11.3 H RBC 3.85 L Hgb 12.7 L Hct 36.4 L MCV 95 MCH 33.0 MCHC 34.9 RDW 13.4 Plt Count 182 09/19/19 09/19/19 09/20/19 17:25 17:25 00:27 Creatine Kinase 50 L 69 CK-MB (CK-2) 0.83 Troponin I 0.080 09/20/19 09/20/19 09/20/19 00:27 06:35 06:35 Creatine Kinase 121 CK-MB (CK-2) 1.16 1.78 Troponin I 0.077 0.092 Impressions: Chest X-Ray 09/19/19 00:00 IMPRESSION: 1. No acute pulmonary findings. Head MRI 09/26/19 00:00 IMPRESSION: Positive for acute or sub-acute infarction in a few 3 mm foci in the subcortical anterior right frontal lobe. EVIDENCE OF ACUTE STROKE: YES. RIGHT MONIQUE. Assessment and Plan - Diagnosis (1) Acute hypernatremia Is this a current diagnosis for this admission?: Yes Plan: Resolved (2) Acute kidney injury Is this a current diagnosis for this admission?: Yes Plan: Essentially resolved, creatinine was near normal (3) Atrial fibrillation Qualifiers: Atrial fibrillation type: unspecified Qualified Code(s): I48.91 - Unspecified atrial fibrillation Is this a current diagnosis for this admission?: Yes Plan: Unable to determine type of atrial fibrillation. He was previously unwilling, now currently unable, to take his oral medications to keep his rate under control. His Coumadin has been held because despite the fact he has not had a for days, his INR has been paradoxically elevated. (4) Diabetes mellitus type 2 in nonobese Is this a current diagnosis for this admission?: Yes Plan: Blood sugars are fairly well controlled whenever he agrees to take medication (5) Hemiparesis affecting right side as late effect of cerebrovascular accident Is this a current diagnosis for this admission?: Yes Plan: This has progressed since his initial stroke presentation. His repeat MRI showed new stroke in the right frontal lobe. - Plan Summary Summary: Given his new stroke and his declining condition, will been having reevaluated by hospice, because he may be appropriate for inpatient. Also spoke to his daughters about his CODE STATUS, and they are considering it. We have added some IV morphine for his pain, dyspnea, and anxiety. We are trying to sort out his disposition for hospice. - Time Time Spent with patient: 15-24 minutes
[2019-09-28] MEDS: METOPROLOL TARTRATE PF/INJ 5 MG/5 ML SDV IV SCH ×2 (17:43→23:09)
[2019-09-28] MEDS: ATORVASTATIN CALCIUM 80 MG TABLET PO SCH (22:51)
[2019-09-29] MEDS ORDERED: NORMAL SALINE 1000 ML 1,000 ML IV ONE ×2 (08:15→10:45)
[2019-09-29] MEDS: PANTOPRAZOLE SODIUM 40 MG TABLET.DR PO SCH (09:24)
[2019-09-29] MEDS: METOPROLOL TARTRATE PF/INJ 5 MG/5 ML SDV IV SCH ×2 (09:25→13:29)
[2019-09-29] MEDS: NICOTINE 21 MG/24 HR PATCH.TD24 TD SCH (09:32)
[2019-09-29] MEDS: ASPIRIN 81 MG TABLET, ENT COATED PO SCH (09:32)
[2019-09-29] MEDS: DOCUSATE SODIUM 100 MG CAPSULE PO SCH (09:32)
[2019-09-29] MEDS: SERTRALINE HCL 50 MG TABLET PO SCH (09:33)
[2019-09-29] MEDS: METOPROLOL SUCCINATE 50 MG TAB.SR.24H PO SCH (09:33)
[2019-09-29] MEDS: MORPHINE SULFATE 10 MG/ML INJ IV PRN ×5 (10:26→18:10)
[2019-09-29] MEDS ORDERED: POTASSI CL 20 MEQ/D5LR 1L 20 MEQ/1,000 ML RTUINJ IV PRN (10:53)
[2019-09-29 13:00] VITALS: BP 108/53
--- NOTE | 2019-09-29 17:15 | PDOC PROGRESS REPORT ---
Subjective Progress Note for:: 09/29/19 Subjective:: No adverse events overnight. Blood pressures were a little low this morning and responded to some IV fluids. He has received morphine periodically throughout the day for symptoms associated with dyspnea or discomfort. His daughter made him a DNR today and has elected to go with comfort measures. Reason For Visit: ACUTE RENAL FAILURE, HYPERNATREMIA, ACUTE URINARY Physical Exam Vital Signs: Temp Pulse Resp BP Pulse Ox 97.5 F 144 H 24 H 108/53 L 92 09/29/19 11:25 09/29/19 11:25 09/29/19 11:25 09/29/19 11:25 09/29/19 11:25 Intake & Output 09/28/19 09/29/19 09/30/19 06:59 06:59 06:59 Intake Total 0 1999 Output Total 525 340 25 Balance -525 -340 1974 Weight 88.3 kg 87.9 kg General appearance: PRESENT: no acute distress, disheveled. ABSENT: cooperative Respiratory exam: PRESENT: clear to auscultation chivo, symmetrical, unlabored. ABSENT: accessory muscle use, chest wall tenderness, crackles, prolonged expiratory phas, rhonchi, tachypnea, wheezes Cardiovascular exam: PRESENT: irregular rhythm, tachycardia Pulses: PRESENT: normal carotid pulses Vascular exam: PRESENT: normal capillary refill GI/Abdominal exam: PRESENT: normal bowel sounds, soft. ABSENT: distended, gua rding, rebound, tenderness Extremities exam: ABSENT: clubbing, pedal edema Musculoskeletal exam: PRESENT: normal inspection. ABSENT: deformity Neurological exam: PRESENT: Somnolent but arousable, oriented to person, dysarthric, left eye is internally rotated, right side is weak. ABSENT: Oriented to place, oriented to situation Skin exam: PRESENT: dry, warm Results Laboratory Results: 09/28/19 13:30 09/24/19 06:09 09/19/19 09/19/19 09/20/19 17:25 17:25 00:27 Creatine Kinase 50 L 69 CK-MB (CK-2) 0.83 Troponin I 0.080 09/20/19 09/20/19 09/20/19 00:27 06:35 06:35 Creatine Kinase 121 CK-MB (CK-2) 1.16 1.78 Troponin I 0.077 0.092 Impressions: Chest X-Ray 09/19/19 00:00 IMPRESSION: 1. No acute pulmonary findings. Head MRI 09/26/19 00:00 IMPRESSION: Positive for acute or sub-acute infarction in a few 3 mm foci in the subcortical anterior right frontal lobe. EVIDENCE OF ACUTE STROKE: YES. RIGHT MONIQUE. Assessment and Plan - Diagnosis (1) Acute hypernatremia Is this a current diagnosis for this admission?: Yes Plan: Resolved (2) Acute kidney injury Is this a current diagnosis for this admission?: Yes Plan: Essentially resolved, creatinine was near normal (3) Atrial fibrillation Qualifiers: Atrial fibrillation type: unspecified Qualified Code(s): I48.91 - Unspecified atrial fibrillation Is this a current diagnosis for this admission?: Yes Plan: Unable to determine type of atrial fibrillation. He was previously unwilling, now currently unable, to take his oral medications to keep his rate under control. His Coumadin has been held because despite the fact he has not had a for days, his INR has been paradoxically elevated. (4) Diabetes mellitus type 2 in nonobese Is this a current diagnosis for this admission?: Yes Plan: Insulin has been stopped due to comfort measures (5) Hemiparesis affecting right side as late effect of cerebrovascular accident Is this a current diagnosis for this admission?: Yes Plan: This has progressed since his initial stroke presentation. His repeat MRI showe d new stroke in the right frontal lobe. - Plan Summary Summary: Given his new stroke and his declining condition, his daughter has decided to make him comfort measures only and change his CODE STATUS to DNR. She has decided to take him home tomorrow with hospice. - Time Time Spent with patient: 15-24 minutes
[2019-09-29] MEDS ORDERED: LORAZEPAM INJ 2 MG/1 ML VIAL ONE (18:05)
[2019-09-29] MEDS ORDERED: LORAZEPAM INJ 2 MG/1 ML VIAL IV PRN (18:10)
--- NOTE | 2019-09-29 18:53 | Death Summary ---
Summary Date : 09/29/19 Time of :: 18:45 Autopsy: No Resuscitation Status: Comfort Measures Only - Final Diagnosis (1) Acute hypernatremia Is this a current diagnosis for this admission?: Yes (2) Acute kidney injury Is this a current diagnosis for this admission?: Yes (3) Atrial fibrillation Is this a current diagnosis for this admission?: Yes (4) Diabetes mellitus type 2 in nonobese Is this a current diagnosis for this admission?: Yes (5) Hemiparesis affecting right side as late effect of cerebrovascular accident Is this a current diagnosis for this admission?: Yes Hospital Course:: This was a 74-year-old male who had a stroke a few weeks ago due to uncontrolled atrial fibrillation and dragged out of his hospital stay because he did not want to go to a rehab center but he did not want to go home either. He was noncompliant with his medication regimens for his stroke, atrial fibrillation, and diabetes. When he took his medications, he responded fairly well but he was for the most part unwilling to take any of them. After spending almost 2 weeks in the hospital the first time, he went home, and according to his daughter he was noncompliant with his medications at home. He came back into the hospital and was dehydrated and had seemingly worse neurological deficits, which turned out to be a new stroke, this time and the right frontal lobe. He was noncompliant with medications here as well. His mental status declined and he became unable to make his own decisions. After struggling with the decision for several days, his daughter ultimately decided to make him comfort measures only and change his CODE STATUS to DNR. That happened today, and the patient this evening at 1845 hrs.
== END 2019-09-29 22:30 | disposition expired | DRG 682 ==
LOC: ER 16:01 → EH 20:35 → 3S 09-20
PROVIDERS: ADMIT Emergency Medicine; ATTEND Emergency Medicine
DX: N17.9 Acute kidney failure, unspecified (principal); I63.9 Cerebral infarction, unspecified; E87.0 Hyperosmolality and hypernatremia; I69.351 Hemiplegia and hemiparesis following cerebral infarction affecting right dominant side; B37.49 Other urogenital candidiasis; I95.9 Hypotension, unspecified; E11.65 Type 2 diabetes mellitus with hyperglycemia; E86.0 Dehydration; Z51.5 Encounter for palliative care; Z66 Do not resuscitate; I48.91 Unspecified atrial fibrillation; I25.10 Atherosclerotic heart disease of native coronary artery without angina pectoris; I10 Essential (primary) hypertension; R00.0 Tachycardia, unspecified; E78.5 Hyperlipidemia, unspecified; F17.200 Nicotine dependence, unspecified, uncomplicated; N47.6 Balanoposthitis; F32.9 Major depressive disorder, single episode, unspecified; R06.00 Dyspnea, unspecified; Z91.14 Patient's other noncompliance with medication regimen; Z95.5 Presence of coronary angioplasty implant and graft; Z83.3 Family history of diabetes mellitus; Z82.49 Family history of ischemic heart disease and other diseases of the circulatory system
CPT/HCPCS: 36415; 70551; 71045; 80048; 80053; 80061; 80162; 81001; 82550; 82553; 82803; 82962; 83036; 83605; 83735; 84439; 84443; 84481; 84484; 85025; 85027; 85610; 87040; 93005; 93010; 99291; 99292; C1758; J1160; J1644; J1815; J2060; J2185; J2270; J3490; J7030; J7050; J7120; J7121